=== PATIENT | male | born 1955 | race Caucasian/White ===

== ENCOUNTER → 2017-01-12 | Outpatient (REF) | payer MEDICAID ==
[~2017-01-12] MED LIST: /ESOM40CA; /ESOM40CA OR; ACET500C OR; ALBU83IN INH; ALBUTEROL NEB INH; ARTISOL10 OD; ASPI325T PO; ATROVENT INH; BACL-67 PO; BUSP15TA47 PO; BUSPAR PO; DOC-8.6T PO; FURO20TA2 PO; FURO40TA2 PO; GUAI200T PO; IBUP200C PO; IBUP400T; LEVA500T PO; MOM30SS PO; NASA0.057; OMEG12002 PO; PRED10TA PO; PRED20TAB PO; PREDNISONE TAPER; PROA1AER INH; PROT1TAB2 PO; PROV90AE; PROV90AE IN; ROBITUSSIN PO; SALINE NASAL SPRAY; SENN8.6T76 PO; SENO8.6T10 PO; SPIR1CAP INH; SYMB16INH INH; SYMB80AE; SYMB80AE IN; SYMBICORT INH; SYSTSOL14 OU; TIOT18INH INH; TRAM50TA2 PO; TYL325; TYLE325T5 PO; VENTOLIN NEB INH
== END ==
LOC: M LAB REF 09:26
PROVIDERS: ATTEND Internal Medicine Pulmonary Disease
DX: J44.9 Chronic obstructive pulmonary disease, unspecified (principal)

== ENCOUNTER → 2017-03-13 | Outpatient (CLI) | payer MEDICAID | LOC: M PT 12:15 | PROVIDERS: ATTEND Physician Assistant Medical | DX: J44.9 Chronic obstructive pulmonary disease, unspecified (principal) ==

== ENCOUNTER → 2017-04-04 | Outpatient (REF) | payer MEDICAID ==
[2017-04-04 11:00] LABS: BASO % 0.7 % (0.0-1.0); EOS # 0.4 K/mm3 (0.0-0.50); LARGE UNSTAINED CELL # 0.2 K/mm3 (0.0-0.4); LARGE UNSTAINED CELL % 2.5 % (0.0-4.0); LYMPH # 1.7 K/mm3 (1.5-4.5); LYMPH % 23.4 % (24.0-44.0); MEAN CORPUSCULAR HEMOGLOBIN 33.4 pg (27.0-33.0); MEAN CORPUSCULAR HGB CONC 33.7 g/dl (32.0-36.5); MEAN CORPUSCULAR VOLUME 99.1 fl (80.0-96.0); MONO # 0.6 K/mm3 (0.0-0.8); NEUTROPHILS # 3.9 K/mm3 (1.8-7.7); NEUTROPHILS % 58.4 % (36.0-66.0); PLATELET COUNT, AUTOMATED 163 k/mm3 (150-450); WHITE BLOOD COUNT 6.7 K/mm3 (4.0-10.0)
[2017-04-04 11:24] LABS: ALBUMIN 3.3 GM/DL (3.2-5.2); ALBUMIN/GLOBULIN RATIO 1.14 (1.00-1.93); ALKALINE PHOSPHATASE 55 U/L (45-117); ALT/SGPT 23 U/L (12-78); ANION GAP 5 MEQ/L (8-16); AST/SGOT 15 U/L (15-37); BILIRUBIN,TOTAL 0.5 MG/DL (0.2-1.0); BLOOD UREA NITROGEN 33 MG/DL (7-18); CALCIUM LEVEL 8.7 MG/DL (8.8-10.2); CARBON DIOXIDE LEVEL 33 MEQ/L (21-32); CHLORIDE LEVEL 105 MEQ/L (98-107); CREATININE FOR GFR 1.19 MG/DL (0.70-1.30); GLOMERULAR FILTRATION RATE > 60.0 (>49); GLUCOSE, FASTING 83 MG/DL (80-110); POTASSIUM SERUM 4.6 MEQ/L (3.5-5.1); SODIUM LEVEL 143 MEQ/L (136-145); TOTAL PROTEIN 6.2 GM/DL (6.4-8.2)
== END ==
PROVIDERS: ATTEND Physician Assistant Medical
DX: J44.9 Chronic obstructive pulmonary disease, unspecified (principal); K21.9 Gastro-esophageal reflux disease without esophagitis; M47.816 Spondylosis without myelopathy or radiculopathy, lumbar region

== ENCOUNTER → 2017-05-15 | Outpatient (REF) | payer MEDICAID ==
[~2017-05-15] MED LIST changes: -BACL-67 PO; +BACL1TAB9 PO; -DOC-8.6T PO; +DOC-8.6T3 PO; -GUAI200T PO; +GUAI200T6 PO; -IBUP200C PO; +IBUP200C10 PO; +LEVA1TAB2 PO; -LEVA500T PO; +NASA0.0517; -NASA0.057; -PROA1AER INH; +PROAAER10 INH
[2017-05-15 16:17] LABS: BASO % 0.6 % (0.0-1.0); EOS # 0.5 K/mm3 (0.0-0.50); EOS % 6.7 % (0.0-3.0); LARGE UNSTAINED CELL # 0.2 K/mm3 (0.0-0.4); LARGE UNSTAINED CELL % 2.2 % (0.0-4.0); LYMPH # 2.3 K/mm3 (1.5-4.5); LYMPH % 26.6 % (24.0-44.0); MONO # 0.6 K/mm3 (0.0-0.8); MONO % 7.7 % (0.0-5.0); NEUTROPHILS # 4.6 K/mm3 (1.8-7.7); NEUTROPHILS % 56.2 % (36.0-66.0); PLATELET COUNT, AUTOMATED 169 k/mm3 (150-450); RED CELL DISTRIBUTION WIDTH 12.1 % (11.5-14.5); WHITE BLOOD COUNT 8.1 K/mm3 (4.0-10.0)
[2017-05-15 17:40] LABS: ALBUMIN 3.9 GM/DL (3.2-5.2); ALBUMIN/GLOBULIN RATIO 1.11 (1.00-1.93); ALKALINE PHOSPHATASE 72 U/L (45-117); ALT/SGPT 29 U/L (12-78); ANION GAP 4 MEQ/L (8-16); AST/SGOT 17 U/L (15-37); BILIRUBIN,TOTAL 0.4 MG/DL (0.2-1.0); BLOOD UREA NITROGEN 28 MG/DL (7-18); CALCIUM LEVEL 9.1 MG/DL (8.8-10.2); CARBON DIOXIDE LEVEL 32 MEQ/L (21-32); CHLORIDE LEVEL 102 MEQ/L (98-107); CREATININE FOR GFR 1.26 MG/DL (0.70-1.30); GLOMERULAR FILTRATION RATE > 60.0 (>49); GLUCOSE, FASTING 94 MG/DL (80-110); POTASSIUM SERUM 4.7 MEQ/L (3.5-5.1); SODIUM LEVEL 138 MEQ/L (136-145); TOTAL PROTEIN 7.4 GM/DL (6.4-8.2)
== END ==
LOC: M SFHCPLAZ 14:09
PROVIDERS: ATTEND Physician Assistant Medical
DX: J44.9 Chronic obstructive pulmonary disease, unspecified (principal); K21.9 Gastro-esophageal reflux disease without esophagitis; M47.816 Spondylosis without myelopathy or radiculopathy, lumbar region

== ENCOUNTER → 2017-05-29 | Outpatient (CLI) | payer MEDICAID ==
--- NOTE | 2017-05-29 15:32 | REP ---
PA and lateral chest: Comparison is 10/24/2016. The lung ford are hyperinflated and there are giant bulla bilaterally and these findings are more pronounced on the left than the right and unchanged. There is calcific pleural plaque in the right apex, unchanged. There are old healed right rib fractures, unchanged. There are no acute infiltrates. Cardiac size is normal. The jesse, mediastinum, and bony thorax are unremarkable. Impression: Advanced bullous emphysema. No acute infiltrate or other acute cardiopulmonary findings. Signed by Darrion Guerra MD 05/29/2017 03:24 P
== END ==
LOC: M SMT 14:51
PROVIDERS: ATTEND Physician Assistant Medical
DX: J44.9 Chronic obstructive pulmonary disease, unspecified (principal)

== ENCOUNTER → 2017-07-19 | Outpatient (CLI) | payer MEDICAID ==
--- NOTE | 2017-07-19 15:00 | REP ---
Clinical: COPD. Technique: PA and lateral. Comparison: 05/29/2017. Findings: Marked COPD and emphysematous changes with large bilateral bullae remain stable. Mediastinum and cardiac silhouette within normal limits. Pleural calcification at the right apex. No new acute pleuroparenchymal process is appreciated. Skeletal structures demonstrate degenerative changes and mild compression deformities which remain stable. Impression: 1. Stable advanced COPD and emphysematous changes. 2. No obvious acute cardiopulmonary process. 3. Osteopenia and degenerative changes along with multiple stable compression deformities. Signed by Rey Ngo MD 07/19/2017 02:51 P
== END ==
LOC: M LAB 14:34
PROVIDERS: ATTEND Internal Medicine Pulmonary Disease
DX: R05 Cough (principal); J44.9 Chronic obstructive pulmonary disease, unspecified; M85.80 Other specified disorders of bone density and structure, unspecified site

== ENCOUNTER → 2017-09-26 | Outpatient (REF) | payer MEDICAID ==
[2017-09-26 10:41] LABS: BASO # 0.1 10^3/uL (0.0-0.2); BASO % 0.7 % (0.0-1.0); EOS # 0.4 10^3/uL (0.0-0.50); EOS % 5.7 % (0.0-3.0); IMMATURE GRANULOCYTE % 0.3 % (0-0); LYMPH # 1.8 10^3/uL (1.5-4.5); LYMPH % 24.3 % (24.0-44.0); MEAN CORPUSCULAR HEMOGLOBIN 32.5 pg (27.0-33.0); MEAN CORPUSCULAR HGB CONC 33.4 g/dl (32.0-36.5); MEAN CORPUSCULAR VOLUME 97.3 fl (80.0-96.0); MONO # 0.8 10^3/uL (0.0-0.8); MONO % 10.4 % (0.0-5.0); NEUTROPHILS # 4.4 10^3/uL (1.8-7.7); NEUTROPHILS % 58.6 % (36.0-66.0); PLATELET COUNT, AUTOMATED 181 10^3/uL (150-450); RED CELL DISTRIBUTION WIDTH 12.3 % (11.5-14.5); WHITE BLOOD COUNT 7.5 10^3/uL (4.0-10.0)
== END ==
PROVIDERS: ATTEND Physician Assistant Medical
DX: K21.9 Gastro-esophageal reflux disease without esophagitis (principal)

== ENCOUNTER → 2017-10-03 | Outpatient (REF) | payer MEDICAID ==
[2017-10-03 13:08] LABS: ALBUMIN 3.4 GM/DL (3.2-5.2); ALKALINE PHOSPHATASE 88 U/L (45-117); ALT/SGPT 42 U/L (12-78); ANION GAP 6 MEQ/L (8-16); AST/SGOT 21 U/L (7-37); BILIRUBIN,TOTAL 0.4 MG/DL (0.2-1.0); BLOOD UREA NITROGEN 19 MG/DL (7-18); CALCIUM LEVEL 8.8 MG/DL (8.8-10.2); CARBON DIOXIDE LEVEL 33 MEQ/L (21-32); CHLORIDE LEVEL 102 MEQ/L (98-107); CREATININE FOR GFR 1.07 MG/DL (0.70-1.30); GLOMERULAR FILTRATION RATE > 60.0 (>49); GLUCOSE, FASTING 85 MG/DL (80-110); POTASSIUM SERUM 4.1 MEQ/L (3.5-5.1); SODIUM LEVEL 141 MEQ/L (136-145); TOTAL PROTEIN 6.8 GM/DL (6.4-8.2)
== END ==
PROVIDERS: ATTEND Physician Assistant Medical
DX: M47.816 Spondylosis without myelopathy or radiculopathy, lumbar region (principal)

== ENCOUNTER → 2017-11-08 | Outpatient (CLI) | payer MEDICAID | LOC: M SMT 11:12 | DX: J01.10 Acute frontal sinusitis, unspecified (principal); J44.9 Chronic obstructive pulmonary disease, unspecified; R91.8 Other nonspecific abnormal finding of lung field ==

== ENCOUNTER → 2017-11-30 | Outpatient (REF) | payer MEDICAID ==
[2017-11-30 18:49] LABS: ALBUMIN 3.8 GM/DL (3.2-5.2); ALBUMIN/GLOBULIN RATIO 1.12 (1.00-1.93); ALKALINE PHOSPHATASE 105 U/L (45-117); ALT/SGPT 45 U/L (12-78); ANION GAP 4 MEQ/L (8-16); AST/SGOT 25 U/L (7-37); BILIRUBIN,TOTAL 0.3 MG/DL (0.2-1.0); BLOOD UREA NITROGEN 14 MG/DL (7-18); CALCIUM LEVEL 8.4 MG/DL (8.8-10.2); CARBON DIOXIDE LEVEL 31 MEQ/L (21-32); CHLORIDE LEVEL 107 MEQ/L (98-107); CREATININE FOR GFR 1.15 MG/DL (0.70-1.30); GLOMERULAR FILTRATION RATE > 60.0 (>49); GLUCOSE, FASTING 79 MG/DL (70-100); POTASSIUM SERUM 3.9 MEQ/L (3.5-5.1); SODIUM LEVEL 142 MEQ/L (136-145); TOTAL PROTEIN 7.2 GM/DL (6.4-8.2)
[2017-11-30 20:22] LABS: BASO # 0.1 10^3/uL (0.0-0.2); BASO % 0.7 % (0.0-1.0); EOS # 0.6 10^3/uL (0.0-0.50); EOS % 7.9 % (0.0-3.0); HEMATOCRIT 41.2 % (42.0-52.0); HEMOGLOBIN 13.6 g/dl (14.0-18.0); IMMATURE GRANULOCYTE % 0.3 % (0-0); LYMPH # 1.8 10^3/uL (1.5-4.5); LYMPH % 26.2 % (24.0-44.0); MEAN CORPUSCULAR HEMOGLOBIN 32.9 pg (27.0-33.0); MEAN CORPUSCULAR VOLUME 99.8 fl (80.0-96.0); MONO # 0.8 10^3/uL (0.0-0.8); MONO % 10.9 % (0.0-5.0); NEUTROPHILS # 3.8 10^3/uL (1.8-7.7); PLATELET COUNT, AUTOMATED 179 10^3/uL (150-450); RED BLOOD COUNT 4.13 10^6/uL (4.30-6.10)
== END ==
LOC: M SFHCPLAZ 14:12
DX: J06.0 Acute laryngopharyngitis (principal)

== ENCOUNTER → 2018-01-02 | Outpatient (REF) | payer MEDICAID | LOC: M LAB REF 15:34 | DX: L82.1 Other seborrheic keratosis (principal) ==

== ENCOUNTER → 2018-01-22 | Outpatient (CLI) | payer MEDICAID | LOC: M SMT 14:33 | DX: R91.8 Other nonspecific abnormal finding of lung field (principal) | CPT/HCPCS: 71046 ==

== ENCOUNTER → 2018-01-23 | Outpatient (REF) | payer MEDICAID | DX: R05 Cough (principal) | CPT/HCPCS: 87205 ==

== ENCOUNTER → 2018-01-26 | Outpatient (REF) | payer MEDICAID ==
[2018-01-26 12:39] LABS: BASO # 0.1 10^3/uL (0.0-0.2); BASO % 0.8 % (0.0-1.0); EOS # 0.4 10^3/uL (0.0-0.50); EOS % 5.8 % (0.0-3.0); HEMATOCRIT 42.1 % (42.0-52.0); HEMOGLOBIN 13.9 g/dl (14.0-18.0); IMMATURE GRANULOCYTE % 0.1 % (0-3.0); LYMPH # 1.7 10^3/uL (1.5-4.5); LYMPH % 23.3 % (24.0-44.0); MEAN CORPUSCULAR HEMOGLOBIN 31.8 pg (27.0-33.0); MEAN CORPUSCULAR VOLUME 96.3 fl (80.0-96.0); MONO # 0.7 10^3/uL (0.0-0.8); MONO % 9.7 % (0.0-5.0); NEUTROPHILS # 4.4 10^3/uL (1.8-7.7); NEUTROPHILS % 60.3 % (36.0-66.0); PLATELET COUNT, AUTOMATED 166 10^3/uL (150-450); RED BLOOD COUNT 4.37 10^6/uL (4.30-6.10); RED CELL DISTRIBUTION WIDTH 12.3 % (11.5-14.5); WHITE BLOOD COUNT 7.3 10^3/uL (4.0-10.0)
[2018-01-26 13:52] LABS: ALBUMIN 3.7 GM/DL (3.2-5.2); ALBUMIN/GLOBULIN RATIO 1.06 (1.00-1.93); ALKALINE PHOSPHATASE 108 U/L (45-117); ALT/SGPT 38 U/L (12-78); ANION GAP 5 MEQ/L (8-16); AST/SGOT 22 U/L (7-37); BILIRUBIN,TOTAL 0.4 MG/DL (0.2-1.0); BLOOD UREA NITROGEN 15 MG/DL (7-18); C REACTIVE PROTEIN QUANTITATIV < 0.30 MG/DL (0.00-0.30); CALCIUM LEVEL 8.6 MG/DL (8.8-10.2); CARBON DIOXIDE LEVEL 29 MEQ/L (21-32); CHLORIDE LEVEL 105 MEQ/L (98-107); CHOLESTEROL LEVEL 176 MG/DL (<200); CHOLESTEROL RISK RATIO 3.666 (<5); FREE T4 1.11 NG/DL (0.76-1.46); GLOMERULAR FILTRATION RATE > 60.0 (>49); GLUCOSE, FASTING 96 MG/DL (70-100); HDL CHOLESTEROL 48 MG/DL (>40); LDL CHOLESTEROL 114.4 MG/DL (<100); NON-HDL-C 128 MG/DL; POTASSIUM SERUM 4.1 MEQ/L (3.5-5.1); SODIUM LEVEL 139 MEQ/L (136-145); TOTAL PROTEIN 7.2 GM/DL (6.4-8.2); TRIGLYCERIDES LEVEL 68 MG/DL (<150)
== END ==
LOC: M SFHCPLAZ 11:29
DX: M47.816 Spondylosis without myelopathy or radiculopathy, lumbar region (principal); K21.9 Gastro-esophageal reflux disease without esophagitis; Z13.220 Encounter for screening for lipoid disorders

== ENCOUNTER → 2018-03-01 | Outpatient (CLI) | payer MEDICAID | LOC: M SMT 11:31 | DX: J44.9 Chronic obstructive pulmonary disease, unspecified (principal); M25.512 Pain in left shoulder | CPT/HCPCS: 71046 ==

== ENCOUNTER → 2018-04-09 | Outpatient (CLI) | payer MEDICAID | LOC: M SMT 12:54 | DX: M85.851 Other specified disorders of bone density and structure, right thigh (principal); M16.11 Unilateral primary osteoarthritis, right hip | CPT/HCPCS: 73502 ==

== ENCOUNTER → 2018-04-13 | Outpatient (REF) | payer MEDICAID ==
[2018-04-13 11:02] LABS: BASO # 0.1 10^3/uL (0.0-0.2); BASO % 0.7 % (0.0-1.0); EOS # 0.5 10^3/uL (0.0-0.50); EOS % 6.8 % (0.0-3.0); HEMATOCRIT 41.1 % (42.0-52.0); HEMOGLOBIN 13.5 g/dl (13.5-17.5); IMMATURE GRANULOCYTE % 0.3 % (0-3.0); LYMPH # 1.7 10^3/uL (1.5-4.5); LYMPH % 21.9 % (24.0-44.0); MEAN CORPUSCULAR HEMOGLOBIN 32.5 pg (27.0-33.0); MEAN CORPUSCULAR HGB CONC 32.8 g/dl (32.0-36.5); MONO # 0.8 10^3/uL (0.0-0.8); MONO % 10.5 % (0.0-5.0); NEUTROPHILS # 4.6 10^3/uL (1.8-7.7); NEUTROPHILS % 59.8 % (36.0-66.0); PLATELET COUNT, AUTOMATED 174 10^3/uL (150-450); RED BLOOD COUNT 4.15 10^6/uL (4.30-6.10); RED CELL DISTRIBUTION WIDTH 13.4 % (11.5-14.5); WHITE BLOOD COUNT 7.6 10^3/uL (4.0-10.0)
[2018-04-13 11:45] LABS: ALBUMIN 3.7 GM/DL (3.2-5.2); ALBUMIN/GLOBULIN RATIO 1.09 (1.00-1.93); ALKALINE PHOSPHATASE 99 U/L (45-117); ALT/SGPT 31 U/L (12-78); ANION GAP 7 MEQ/L (8-16); AST/SGOT 15 U/L (7-37); BILIRUBIN,TOTAL 0.4 MG/DL (0.2-1.0); BLOOD UREA NITROGEN 17 MG/DL (7-18); CALCIUM LEVEL 8.8 MG/DL (8.8-10.2); CARBON DIOXIDE LEVEL 29 MEQ/L (21-32); CHLORIDE LEVEL 106 MEQ/L (98-107); CREATININE FOR GFR 0.98 MG/DL (0.70-1.30); GLOMERULAR FILTRATION RATE > 60.0 (>49); GLUCOSE, FASTING 111 MG/DL (70-100); POTASSIUM SERUM 4.1 MEQ/L (3.5-5.1); SODIUM LEVEL 142 MEQ/L (136-145); TOTAL PROTEIN 7.1 GM/DL (6.4-8.2)
[2018-04-16 14:12] LABS: TOPIRAMATE LEVEL None Detected ug/mL (2.0-25.0)
== END ==
DX: R51 Headache (principal)
CPT/HCPCS: 80053

== ENCOUNTER → 2018-08-15 | Outpatient (REF) | payer MEDICAID ==
[2018-08-15 09:07] LABS: BASO # 0.1 10^3/uL (0.0-0.2); BASO % 0.9 % (0.0-1.0); EOS # 0.4 10^3/uL (0.0-0.50); EOS % 5.3 % (0.0-3.0); HEMATOCRIT 42.8 % (42.0-52.0); HEMOGLOBIN 14.5 g/dl (13.5-17.5); IMMATURE GRANULOCYTE % 0.3 % (0-3.0); LYMPH # 2.3 10^3/uL (1.5-4.5); LYMPH % 30.4 % (24.0-44.0); MEAN CORPUSCULAR HEMOGLOBIN 33.5 pg (27.0-33.0); MEAN CORPUSCULAR HGB CONC 33.9 g/dl (32.0-36.5); MEAN CORPUSCULAR VOLUME 98.8 fl (80.0-96.0); MONO # 0.7 10^3/uL (0.0-0.8); NEUTROPHILS # 3.9 10^3/uL (1.8-7.7); NEUTROPHILS % 53.1 % (36.0-66.0); PLATELET COUNT, AUTOMATED 201 10^3/uL (150-450); RED BLOOD COUNT 4.33 10^6/uL (4.30-6.10); RED CELL DISTRIBUTION WIDTH 12.7 % (11.5-14.5); WHITE BLOOD COUNT 7.4 10^3/uL (4.0-10.0)
[2018-08-15 09:26] LABS: ESTIMATED AVERAGE GLUCOSE 123 MG/DL (60-110); HEMOGLOBIN A1c 5.9 %
[2018-08-15 09:35] LABS: CHOLESTEROL LEVEL 177 MG/DL (<200); CHOLESTEROL RISK RATIO 3.403 (<5); HDL CHOLESTEROL 52 MG/DL (>40); LDL CHOLESTEROL 105 MG/DL (<100); NON-HDL-C 125 MG/DL; TRIGLYCERIDES LEVEL 100 MG/DL (<150)
[2018-08-15 10:00] LABS: ERYTHROCYTE SEDIMENTATION RATE 20 mm/hr (0-20)
== END ==
DX: G45.3 Amaurosis fugax (principal)
CPT/HCPCS: 83036

== ENCOUNTER → 2018-08-20 | Outpatient (CLI) | payer MEDICAID | LOC: M RAD 10:55 | DX: H53.9 Unspecified visual disturbance (principal) | CPT/HCPCS: 93880 ==

== ENCOUNTER → 2018-08-28 | Outpatient (REF) | payer MEDICAID ==
[2018-08-28 09:34] LABS: BASO # 0.1 10^3/uL (0.0-0.2); BASO % 0.9 % (0.0-1.0); EOS # 0.4 10^3/uL (0.0-0.50); HEMATOCRIT 42.1 % (42.0-52.0); HEMOGLOBIN 14.1 g/dl (13.5-17.5); IMMATURE GRANULOCYTE % 0.5 % (0-3.0); LYMPH # 1.9 10^3/uL (1.5-4.5); LYMPH % 29.6 % (24.0-44.0); MEAN CORPUSCULAR HEMOGLOBIN 33.3 pg (27.0-33.0); MEAN CORPUSCULAR HGB CONC 33.5 g/dl (32.0-36.5); MEAN CORPUSCULAR VOLUME 99.5 fl (80.0-96.0); MONO # 0.7 10^3/uL (0.0-0.8); MONO % 10.7 % (0.0-5.0); NEUTROPHILS # 3.4 10^3/uL (1.8-7.7); NEUTROPHILS % 52.3 % (36.0-66.0); PLATELET COUNT, AUTOMATED 180 10^3/uL (150-450); RED BLOOD COUNT 4.23 10^6/uL (4.30-6.10); RED CELL DISTRIBUTION WIDTH 12.9 % (11.5-14.5); WHITE BLOOD COUNT 6.5 10^3/uL (4.0-10.0)
[2018-08-28 09:57] LABS: ESTIMATED AVERAGE GLUCOSE 128 MG/DL (60-110); HEMOGLOBIN A1c 6.1 %
[2018-08-28 10:02] LABS: ALBUMIN 3.7 GM/DL (3.2-5.2); ALBUMIN/GLOBULIN RATIO 1.06 (1.00-1.93); ALKALINE PHOSPHATASE 93 U/L (45-117); ALT/SGPT 31 U/L (12-78); ANION GAP 6 MEQ/L (8-16); AST/SGOT 18 U/L (7-37); BILIRUBIN,TOTAL 0.3 MG/DL (0.2-1.0); BLOOD UREA NITROGEN 17 MG/DL (7-18); CALCIUM LEVEL 8.6 MG/DL (8.8-10.2); CARBON DIOXIDE LEVEL 25 MEQ/L (21-32); CHLORIDE LEVEL 109 MEQ/L (98-107); CHOLESTEROL LEVEL 168 MG/DL (<200); CREATININE FOR GFR 1.07 MG/DL (0.70-1.30); FREE T4 1.05 NG/DL (0.76-1.46); GLOMERULAR FILTRATION RATE > 60.0 (>49); GLUCOSE, FASTING 100 MG/DL (70-100); HDL CHOLESTEROL 48 MG/DL (>40); LDL CHOLESTEROL 105 MG/DL (<100); NON-HDL-C 120 MG/DL; POTASSIUM SERUM 4.2 MEQ/L (3.5-5.1); SODIUM LEVEL 140 MEQ/L (136-145); TOTAL PROTEIN 7.2 GM/DL (6.4-8.2); TRIGLYCERIDES LEVEL 76 MG/DL (<150)
[2018-08-28 10:06] LABS: TOTAL 25(OH) VITAMIN D 20.8 NG/ML (30.0-100.0)
[2018-08-28 12:38] LABS: GOLD SPEC TUBE RECIEVED
== END ==
DX: K21.9 Gastro-esophageal reflux disease without esophagitis (principal); M85.80 Other specified disorders of bone density and structure, unspecified site; Z79.899 Other long term (current) drug therapy
CPT/HCPCS: 84443

== ENCOUNTER → 2018-10-17 | Outpatient (REF) | payer MEDICAID ==
[~2018-10-17] MED LIST changes: -IBUP200C10 PO; +IBUP200C25 PO
[2018-10-17 11:44] LABS: FREE T4 1.22 NG/DL (0.76-1.46); THYROID STIMULATING HORMONE 2.32 uIU/ML (0.358-3.740)
== END ==
PROVIDERS: ATTEND Physician Assistant Medical
DX: E03.9 Hypothyroidism, unspecified (principal)

== ENCOUNTER → 2018-12-13 | Outpatient (CLI) | payer MEDICAID ==
--- NOTE | 2018-12-13 10:08 | REP ---
Chest two views HISTORY: COPD Comparison: None The left lung is hyperinflated. An increase in interstitial markings is present in the lungs consistent with chronic interstitial change. Bullae are present. Patchy density is present in the right lower lobe consistent with atelectasis or infiltrate. Calcified pleural plaque is present in the right lung apex. The heart is normal in size. The pulmonary vasculature is normal in appearance. There are old right rib fractures. There are old compression fractures of several mid and lower thoracic vertebral bodies. IMPRESSION: 1. COPD. 2. Right lower lobe atelectasis or infiltrate. Electronically Signed by Rao Riggins MD 12/13/2018 10:00 A
[2018-12-13 14:05] LABS: BASO # 0.1 10^3/uL (0.0-0.2); BASO % 0.8 % (0.0-1.0); EOS # 0.3 10^3/uL (0.0-0.50); EOS % 4.4 % (0.0-3.0); HEMATOCRIT 43.8 % (42.0-52.0); HEMOGLOBIN 14.6 g/dl (13.5-17.5); LYMPH # 1.7 10^3/uL (1.5-4.5); LYMPH % 22.1 % (24.0-44.0); MEAN CORPUSCULAR HEMOGLOBIN 33.1 pg (27.0-33.0); MEAN CORPUSCULAR HGB CONC 33.3 g/dl (32.0-36.5); MEAN CORPUSCULAR VOLUME 99.3 fl (80.0-96.0); MONO # 0.7 10^3/uL (0.0-0.8); MONO % 9.5 % (0.0-5.0); NEUTROPHILS # 4.8 10^3/uL (1.8-7.7); NEUTROPHILS % 63.1 % (36.0-66.0); PLATELET COUNT, AUTOMATED 200 10^3/uL (150-450); RED BLOOD COUNT 4.41 10^6/uL (4.30-6.10); WHITE BLOOD COUNT 7.6 10^3/uL (4.0-10.0)
[2018-12-13 14:29] LABS: HEMOGLOBIN A1c 6.6 %
[2018-12-13 14:32] LABS: ALBUMIN 3.9 GM/DL (3.2-5.2); ALT/SGPT 37 U/L (12-78); BILIRUBIN,TOTAL 0.3 MG/DL (0.2-1.0); BLOOD UREA NITROGEN 17 MG/DL (7-18); CALCIUM LEVEL 8.9 MG/DL (8.8-10.2); CARBON DIOXIDE LEVEL 27 MEQ/L (21-32); CHLORIDE LEVEL 106 MEQ/L (98-107); CREATININE FOR GFR 1.07 MG/DL (0.70-1.30); FREE T4 1.21 NG/DL (0.76-1.46); GLOMERULAR FILTRATION RATE > 60.0 (>49); GLUCOSE, FASTING 125 MG/DL (70-100); POTASSIUM SERUM 4.5 MEQ/L (3.5-5.1); PTH INTACT 43.2 PG/ML (18.5-88.0); SODIUM LEVEL 140 MEQ/L (136-145); TOTAL PROTEIN 7.1 GM/DL (6.4-8.2)
== END ==
LOC: M SMT 09:35
PROVIDERS: ATTEND Physician Assistant Medical
DX: J44.9 Chronic obstructive pulmonary disease, unspecified (principal); K21.9 Gastro-esophageal reflux disease without esophagitis; E55.9 Vitamin D deficiency, unspecified; E66.09 Other obesity due to excess calories

== ENCOUNTER → 2018-12-19 | Outpatient (REF) | payer MEDICAID | LOC: M SMT 07:37 | PROVIDERS: ATTEND Internal Medicine Pulmonary Disease | DX: R05 Cough (principal) ==

== ENCOUNTER → 2019-01-16 | Outpatient (CLI) | payer MEDICAID ==
--- NOTE | 2019-01-16 11:17 | REP ---
Chest two views HISTORY: Pneumonia Comparison: 12/13/2018 An increase in interstitial markings is present in the lungs consistent with chronic interstitial change. Bullae are present. Patchy density is present in the the right lower lobe consistent with an infiltrate that is slightly decreased compared to the previous study. The heart is normal in size. The pulmonary vasculature is normal in appearance. There are old right rib fractures. There are old compression fractures of several mid and lower thoracic vertebral bodies. Impression: 1. COPD. 2. Right lower lobe infiltrate decreased compared to the previous study. Electronically Signed by Rao Riggins MD 01/16/2019 11:08 A
== END ==
LOC: M SMT 10:06
PROVIDERS: ATTEND Internal Medicine Pulmonary Disease
DX: J18.9 Pneumonia, unspecified organism (principal)

== ENCOUNTER → 2019-02-27 | Outpatient (CLI) | payer MEDICAID ==
[~2019-02-27] MED LIST changes: -/ESOM40CA; -/ESOM40CA OR; +ASPI-1 PO; -ASPI325T PO; +NEXI1CAP3; +NEXI1CAP3 OR; +PRED-351 PO; -PRED10TA PO
--- NOTE | 2019-02-27 19:16 | REP ---
RIGHT LOWER EXTREMITY DUPLEX VEINS: HISTORY: Edema. There are no filling defects in the deep venous system. The deep venous system is patent. IMPRESSION:There is no deep venous thrombosis. Electronically Signed by Rao Riggins MD 02/27/2019 07:24 P
== END ==
LOC: M RAD 16:32
PROVIDERS: ATTEND Physician Assistant Medical
DX: R60.0 Localized edema (principal)

== ENCOUNTER → 2019-02-27 | Outpatient (REF) | payer MEDICAID ==
[2019-02-27 16:32] LABS: BASO % 0.6 % (0.0-1.0); EOS # 0.3 10^3/uL (0.0-0.50); EOS % 4.9 % (0.0-3.0); HEMATOCRIT 41.9 % (42.0-52.0); LYMPH # 1.6 10^3/uL (1.5-4.5); LYMPH % 24.7 % (24.0-44.0); MEAN CORPUSCULAR HEMOGLOBIN 33.6 pg (27.0-33.0); MEAN CORPUSCULAR HGB CONC 33.4 g/dl (32.0-36.5); MEAN CORPUSCULAR VOLUME 100.5 fl (80.0-96.0); MONO # 0.7 10^3/uL (0.0-0.8); MONO % 10.6 % (0.0-5.0); NEUTROPHILS # 3.8 10^3/uL (1.8-7.7); PLATELET COUNT, AUTOMATED 165 10^3/uL (150-450); RED BLOOD COUNT 4.17 10^6/uL (4.30-6.10); WHITE BLOOD COUNT 6.4 10^3/uL (4.0-10.0)
[2019-02-27 16:45] LABS: ALBUMIN 3.9 GM/DL (3.2-5.2); ALT/SGPT 31 U/L (12-78); BILIRUBIN,TOTAL 0.4 MG/DL (0.2-1.0); BLOOD UREA NITROGEN 19 MG/DL (7-18); CALCIUM LEVEL 8.5 MG/DL (8.8-10.2); CARBON DIOXIDE LEVEL 25 MEQ/L (21-32); CHLORIDE LEVEL 109 MEQ/L (98-107); CHOLESTEROL LEVEL 168 MG/DL (<200); CHOLESTEROL RISK RATIO 3.818 (<5); CREATININE FOR GFR 0.92 MG/DL (0.70-1.30); FREE T4 1.25 NG/DL (0.76-1.46); GLOMERULAR FILTRATION RATE > 60.0 (>49); GLUCOSE, FASTING 104 MG/DL (70-100); HDL CHOLESTEROL 44 MG/DL (>40); LDL CHOLESTEROL 100 MG/DL (<100); NON-HDL-C 124 MG/DL; POTASSIUM SERUM 4.1 MEQ/L (3.5-5.1); SODIUM LEVEL 139 MEQ/L (136-145); TOTAL PROTEIN 6.9 GM/DL (6.4-8.2); TRIGLYCERIDES LEVEL 122 MG/DL (<150)
[2019-02-27 16:46] LABS: PTH INTACT 53.6 PG/ML (18.5-88.0)
== END ==
LOC: M SFHCPLAZ 14:14
PROVIDERS: ATTEND Physician Assistant Medical
DX: Z12.11 Encounter for screening for malignant neoplasm of colon (principal); Z12.5 Encounter for screening for malignant neoplasm of prostate; E03.9 Hypothyroidism, unspecified; K21.9 Gastro-esophageal reflux disease without esophagitis; E55.9 Vitamin D deficiency, unspecified; Z13.220 Encounter for screening for lipoid disorders

== ENCOUNTER → 2019-03-05 | Outpatient (CLI) | payer MEDICAID ==
--- NOTE | 2019-03-05 14:42 | REP ---
Chest two views HISTORY: Pneumonia Comparison: 01/16/2019 An increase in interstitial markings is present in the lungs consistent with chronic interstitial change. Bullae are present. Patchy density is present in the right lower lobe consistent with an infiltrate that is slightly decreased compared to the previous study. The heart is normal in size. The pulmonary vasculature is normal in appearance. There are old compression fractures of several mid and lower thoracic vertebral bodies. IMPRESSION: 1. COPD. 2. Right lower lobe infiltrate decreased compared to the previous study. Electronically Signed by Rao Riggins MD 03/05/2019 02:33 P
== END ==
LOC: M SMT 13:52
PROVIDERS: ATTEND Internal Medicine Pulmonary Disease
DX: J18.9 Pneumonia, unspecified organism (principal); J44.0 Chronic obstructive pulmonary disease with (acute) lower respiratory infection

== ENCOUNTER 2019-03-21 21:02 | Emergency (ER) | payer MEDICAID ==
[~2019-03-21] VITALS: Ht 182.9 cm; Wt 76.4 kg
[2019-03-21 22:30] VITALS: BP 106/78
[2019-03-21] MEDS ORDERED: QC A650T3 PO (22:40)
[2019-03-21] MEDS ORDERED: AMIT75TA PO (22:44)
[2019-03-21] MEDS ORDERED: SM N0.65 NARES (22:44)
--- NOTE | 2019-03-22 09:37 | REP ---
CT chest without contrast: Repeat dictation. History: Persistent infiltrate right lower lobe on chest x-ray. Comparison is made with a recent chest x-ray from March 05, 2019 as well as chest CTs. The most recent prior chest CT study is from July 06, 2016. The most remote is from August of 2014. Preliminary report is provided at the time of examination by [facility]. CT findings: There are severe emphysematous changes with numerous large bullae. These bullae occupying the majority of the volume of the left hemithorax and approximately half the volume of the right hemithorax similar to multiple prior studies. There is calcific pleural plaquing and calcific pleuroparenchymal fibrosis in the right apex and right posterior chest wall. This is unchanged. There is some coarse linear fibrosis in the right base in the lower lobe. I do not see a definite inflammatory infiltrate in the right base. There is an area of consolidation atelectasis and bronchiectasis in the left upper lobe anteriorly which appears to be new from July 06, 2016 prior study. This may be a focus of pneumonia. There are some increased interstitial markings in the lingula at the left base which were not present in 2016 as well. This could be inflammatory changes. At the left apex there is a spiculated opacity which appears to be fibrotic. It is a change from July 06, 2016 prior study. No pleural or pericardial effusion is seen. No hilar or mediastinal mass is observed. Vascular calcification including coronary artery calcification is seen. Impression: Severe COPD with multiple large volume bullae. There is an area of parenchymal opacification, bronchiectasis and consolidation in the left upper lobe anteriorly which may be pneumonia. There is a new area of fibrotic density in the left apex. Short interval followup suggested. Electronically Signed by Frederic Self MD 03/22/2019 06:22 P
--- NOTE | 2019-03-26 14:50 | ED PDOC ---
Post-Departure Follow-Up karly duffy faxed formal report of ct chest for fu Elías Aguero MD March 26, 2019 14:50
== END 2019-03-21 23:02 | disposition home or self-care (01) ==
LOC: M ED 21:02 → EDBD 21:02 → M ED 23:02
DX: J44.9 Chronic obstructive pulmonary disease, unspecified (principal); R91.8 Other nonspecific abnormal finding of lung field; F33.9 Major depressive disorder, recurrent, unspecified; F43.10 Post-traumatic stress disorder, unspecified; F41.9 Anxiety disorder, unspecified; K21.9 Gastro-esophageal reflux disease without esophagitis; Z79.899 Other long term (current) drug therapy; Z87.891 Personal history of nicotine dependence

== ENCOUNTER → 2019-04-04 | Outpatient (CLI) | payer MEDICAID ==
[~2019-04-04] MED LIST changes: +AMIT75TA PO; +QC A650T3 PO; +SM N0.65 NARES
--- NOTE | 2019-04-04 14:39 | REP ---
Clinical: Pneumonia. Technique: PA and lateral. Comparison: 03/05/2019. Findings: Advanced COPD/emphysematous changes with large bilateral bullae and significant oligemia noted (left greater than right). Findings appear relatively stable. No acute consolidation, effusion, or pneumothorax. Mediastinum and cardiac silhouette are stable. Skeletal structures are intact. Impression: Advanced COPD/emphysematous changes similar to prior examination. No obvious acute consolidation. Electronically Signed by Rey Ngo MD 04/04/2019 02:30 P
== END ==
LOC: M SMT 13:29
PROVIDERS: ATTEND Internal Medicine Pulmonary Disease
DX: J18.9 Pneumonia, unspecified organism (principal); J44.0 Chronic obstructive pulmonary disease with (acute) lower respiratory infection

== ENCOUNTER → 2019-04-25 | Outpatient (REF) | payer MEDICAID | LOC: M SFHCPLAZ 12:20 | PROVIDERS: ATTEND Physician Assistant Medical | DX: J44.9 Chronic obstructive pulmonary disease, unspecified (principal) ==

== ENCOUNTER → 2019-05-20 | Outpatient (REF) | payer MEDICAID ==
[~2019-05-20] MED LIST changes: +AFRI0.058; +ALL10TAB29 PO; +BACL10TA2 PO; +BIOF4GEL4 EXT; +BUSP30TA PO; +DOCU100C16 PO; +DULE200A INH; +ENSULIQ19 PO; +EUCELOT4 EXT; +FLUT50SP33; +FURO80TA2 PO; +GABA-845 PO; +GENT1SOL16 OD; +LEVO25TA34 PO; +MAXA10TA15 PO; +MIRA1POW3 PO; +MUCI600T31 PO; +NORC1TAB7 PO; +OCEA0.654; +OYST500T91 PO; +PRED5TA PO; +PROP10TA56 PO; +SENN1TAB41 PO; +SYST0.6S OU; +TRAZ-189 PO; +VITA50005 PO; +ZONI100C17 PO
[2019-05-20 19:42] LABS: BLOOD UREA NITROGEN 20 MG/DL (7-18); CALCIUM LEVEL 8.4 MG/DL (8.8-10.2); CARBON DIOXIDE LEVEL 30 MEQ/L (21-32); CHLORIDE LEVEL 105 MEQ/L (98-107); CREATININE FOR GFR 1.08 MG/DL (0.70-1.30); GLOMERULAR FILTRATION RATE > 60.0 (>49); GLUCOSE, FASTING 104 MG/DL (70-100); POTASSIUM SERUM 3.9 MEQ/L (3.5-5.1); SODIUM LEVEL 139 MEQ/L (136-145)
== END ==
LOC: M SFHCPLAZ 15:38
PROVIDERS: ATTEND Physician Assistant Medical
DX: J44.1 Chronic obstructive pulmonary disease with (acute) exacerbation (principal)

== ENCOUNTER → 2019-05-27 | Outpatient (CLI) | payer MEDICAID ==
[~2019-05-27] MED LIST changes: -AFRI0.058; -ALL10TAB29 PO; -BACL10TA2 PO; -BIOF4GEL4 EXT; -BUSP30TA PO; -DOCU100C16 PO; -DULE200A INH; -ENSULIQ19 PO; -EUCELOT4 EXT; -FLUT50SP33; -FURO80TA2 PO; -GABA-845 PO; -GENT1SOL16 OD; -LEVO25TA34 PO; -MAXA10TA15 PO; -MIRA1POW3 PO; -MUCI600T31 PO; -NORC1TAB7 PO; -OCEA0.654; -OYST500T91 PO; -PRED5TA PO; -PROP10TA56 PO; -SENN1TAB41 PO; -SYST0.6S OU; -TRAZ-189 PO; -VITA50005 PO; -ZONI100C17 PO
--- NOTE | 2019-05-27 09:43 | REP ---
CT of the chest without IV contrast: Comparison is 03/21/2019. The spiculated lesion in the apex of the left lung today it measures 2.6 cm. This measured 2.6 cm previously. This is compatible with parenchymal scar, however, follow-up after additional 6 months is recommended for further evaluation. On the comparison study there was a focal zone of atelectasis and bronchiectasis anteriorly in the left upper lobe, is new from July 06, 2016. This has resolved and is no longer present, compatible with transient infiltrate. Large bullae are again present bilaterally, the largest in the left lower lobe measuring up to 12.2 cm in diameter. This is unchanged. Calcific pleural plaquing on the right is again identified, unchanged. There are no acute infiltrates or pleural effusions. There is no mediastinal or axillary adenopathy. The absence of IV contrast study is insensitive for hilar adenopathy per The unenhanced thoracic aorta is unremarkable. Cardiac size is normal. The visualized upper abdominal contents are unremarkable. There is no adrenal mass. Impression: Left upper lobe zone of atelectasis and bronchiectasis anteriorly on the prior study has resolved, compatible with transient infiltrate. The spiculated lesion in the left apex is unchanged in size, compatible with parenchymal scar, however, additional followup in 6 months is recommended for more assurance. There are no acute infiltrates or pleural effusions. The large bullae are again identified bilaterally, unchanged. Calcific pleural plaquing on the right is again identified, unchanged. Electronically Signed by Darrion Guerra MD 05/27/2019 09:35 A
== END ==
LOC: M RAD 09:08
PROVIDERS: ATTEND Physician Assistant Medical
DX: J44.1 Chronic obstructive pulmonary disease with (acute) exacerbation (principal); R09.02 Hypoxemia

== ENCOUNTER → 2019-06-05 | Outpatient (CLI) | payer MEDICAID ==
--- NOTE | 2019-06-05 15:03 | REP ---
Clinical: Back pain. Technique: AP, lateral, bilateral oblique and coned-down views of the lumbar spine. Comparison: 04/13/2018 Findings: Advanced osteopenia and multilevel degenerative disc osteophyte complexes are appreciated including chronic compression deformities. Alignment and lordosis maintained. Impression: Osteopenia and advanced multilevel degenerative spondylosis essentially unchanged compared to 04/13/2018. Electronically Signed by Rey Ngo MD 06/05/2019 02:55 P
--- NOTE | 2019-06-05 15:26 | REP ---
Clinical: Thoracic back pain. Technique: AP, lateral, swimmers views of the thoracic spine. Findings: Osteopenia and advanced multilevel degenerative changes are appreciated including multilevel compression deformities which remain relatively stable when compared to chest x-ray dated 04/04/2019. Advanced COPD/emphysematous changes with large bilateral bullae again noted as well as scattered biapical and right basilar scarring. Impression: Osteopenia and advanced multilevel degenerative changes including chronic-appearing compression deformities. Electronically Signed by Rey Ngo MD 06/05/2019 03:17 P
== END ==
LOC: M SMT 14:33
PROVIDERS: ATTEND Physician Assistant Medical
DX: M85.88 Other specified disorders of bone density and structure, other site (principal); M54.6 Pain in thoracic spine; M47.816 Spondylosis without myelopathy or radiculopathy, lumbar region

== ENCOUNTER → 2019-07-17 | Outpatient (CLI) | payer MEDICAID ==
--- NOTE | 2019-07-17 12:01 | REP ---
CT ABDOMEN AND PELVIS WITHOUT IV OR ORAL CONTRAST: HISTORY: Right lower quadrant abdomen pain. Rule out stone. No comparison study. Vomiting times [address] FINDINGS: Preliminary digital container coordinator radiograph demonstrates advanced emphysematous changes in the lungs with large bullae in the bases. Bowel gas pattern is normal. There is vascular calcification. The liver and spleen are normal in size homogeneous in texture. No abnormality is noted in the gallbladder or pancreas. No adrenal lesion is seen. The kidneys are morphologically intact. No hydronephrosis or intrarenal calculus is observed. Normal caliber aorta. A normal appendix is seen in the right lower quadrant. Small and large intestinal bowel loops are unremarkable. Urinary bladder, seminal vesicles, and prostate are unremarkable. There is one dystrophic calcification in the prostate. Bone window settings show no focal bony destructive lesion. There is diffuse osteopenia and there is loss of vertebral body heights consistent with osteoporotic compression at multiple lumbar levels. There are bilateral L5 pars defects and there is a mild 3 mm L5 as one spondylolisthesis. IMPRESSION: 1. Severe COPD and emphysema. 2. No evidence of urinary tract calculus or hydronephrosis. 3. Normal appendix. 4. Vascular calcification. 5. Osteoporotic wedging at multiple lumbar vertebrae. 6. Bilateral L5 spondylolysis with grade 1 L5-S1 spondylolisthesis. Electronically Signed by Frederic Self MD 07/17/2019 03:25 P
== END ==
LOC: M RAD 09:36
PROVIDERS: ATTEND Physician Assistant Medical
DX: R10.31 Right lower quadrant pain (principal)

== ENCOUNTER → 2019-07-25 | Outpatient (REF) | payer MEDICAID ==
[~2019-07-25] MED LIST changes: +AFRI0.058; +ALL10TAB29 PO; +BACL10TA2 PO; +BIOF4GEL4 EXT; +BUSP30TA PO; +DOCU100C16 PO; +DULE200A INH; +ENSULIQ19 PO; +EUCELOT4 EXT; +FLUT50SP33; +FURO80TA2 PO; +GABA-845 PO; +GENT1SOL16 OD; +LEVO25TA34 PO; +MAXA10TA15 PO; +MIRA1POW3 PO; +MUCI600T31 PO; +NORC1TAB7 PO; +OCEA0.654; +OYST500T91 PO; +PRED5TA PO; +PROP10TA56 PO; +SENN1TAB41 PO; +SYST0.6S OU; +TRAZ-189 PO; +VITA50005 PO; +ZONI100C17 PO
== END ==
PROVIDERS: ATTEND Physician Assistant Medical
DX: R05 Cough (principal); Z53.9 Procedure and treatment not carried out, unspecified reason

== ENCOUNTER → 2019-07-25 | Outpatient (REF) | payer MEDICAID | LOC: M SFHCPLAZ 17:29 | PROVIDERS: ATTEND Physician Assistant Medical | DX: R05 Cough (principal) ==

== ENCOUNTER → 2019-07-30 | Outpatient (CLI) | payer MEDICAID ==
[~2019-07-30] MED LIST changes: -AFRI0.058; -ALL10TAB29 PO; -BACL10TA2 PO; -BIOF4GEL4 EXT; -BUSP30TA PO; -DOCU100C16 PO; -DULE200A INH; -ENSULIQ19 PO; -EUCELOT4 EXT; -FLUT50SP33; -FURO80TA2 PO; -GABA-845 PO; -GENT1SOL16 OD; -LEVO25TA34 PO; -MAXA10TA15 PO; -MIRA1POW3 PO; -MUCI600T31 PO; -NORC1TAB7 PO; -OCEA0.654; -OYST500T91 PO; -PRED5TA PO; -PROP10TA56 PO; -SENN1TAB41 PO; -SYST0.6S OU; -TRAZ-189 PO; -VITA50005 PO; -ZONI100C17 PO
--- NOTE | 2019-08-01 15:43 | DEXA ---
AP SPINE L1 - L4 0.721 -3.8 -3.7 LT FEMUR TOTAL 0.659 -2.8 -2.6 LT NECK 0.580 -3.3 -2.7 RT FEMUR TOTAL 0.618 -3.1 -2.8 RT NECK 0.573 -3.3 -2.8 TOTAL BODY TOTAL OTHER COMMENTS: There is osteoporosis of the spine and hips. FOLLOW-UP: Recommendation for the next bone density exam: 2 years. CHRISTELLE
== END ==
LOC: M WHC 12:22
PROVIDERS: ATTEND Physician Assistant Medical
DX: M85.88 Other specified disorders of bone density and structure, other site (principal)

== ENCOUNTER → 2019-08-27 | Outpatient (REF) | payer MEDICAID ==
[2019-08-27 10:21] LABS: BASO % 0.5 % (0.0-1.0); EOS # 0.3 10^3/uL (0.0-0.5); EOS % 4.4 % (0.0-3.0); HEMATOCRIT 42.4 % (42.0-52.0); HEMOGLOBIN 13.9 g/dl (13.5-17.5); LYMPH # 1.5 10^3/uL (1.5-5.0); LYMPH % 20.2 % (24.0-44.0); MEAN CORPUSCULAR HEMOGLOBIN 34.1 pg (27.0-33.0); MEAN CORPUSCULAR HGB CONC 32.8 g/dl (32.0-36.5); MEAN CORPUSCULAR VOLUME 103.9 fl (80.0-96.0); MONO # 0.9 10^3/uL (0.0-0.8); MONO % 11.6 % (0.0-5.0); NEUTROPHILS # 4.8 10^3/uL (1.5-8.5); PLATELET COUNT, AUTOMATED 168 10^3/uL (150-450); RED BLOOD COUNT 4.08 10^6/uL (4.30-6.10); WHITE BLOOD COUNT 7.6 10^3/uL (4.0-10.0)
[2019-08-27 11:03] LABS: ALBUMIN 3.8 GM/DL (3.2-5.2); ALT/SGPT 26 U/L (12-78); BILIRUBIN,TOTAL 0.4 MG/DL (0.2-1.0); BLOOD UREA NITROGEN 24 MG/DL (7-18); CARBON DIOXIDE LEVEL 28 MEQ/L (21-32); CHLORIDE LEVEL 108 MEQ/L (98-107); CREATININE FOR GFR 1.09 MG/DL (0.70-1.30); FREE T4 1.11 NG/DL (0.76-1.46); GLOMERULAR FILTRATION RATE > 60.0 (>49); GLUCOSE, FASTING 136 MG/DL (70-100); SODIUM LEVEL 141 MEQ/L (136-145)
== END ==
PROVIDERS: ATTEND Physician Assistant Medical
DX: E03.9 Hypothyroidism, unspecified (principal); Z13.220 Encounter for screening for lipoid disorders; K21.9 Gastro-esophageal reflux disease without esophagitis

== ENCOUNTER → 2019-09-20 | Outpatient (REF) | payer MEDICAID ==
[~2019-09-20] MED LIST changes: +AFRI0.058; +ALL10TAB29 PO; +BACL10TA2 PO; +BIOF4GEL4 EXT; +BUSP30TA PO; +DOCU100C16 PO; +DULE200A INH; +ENSULIQ19 PO; +EUCELOT4 EXT; +FLUT50SP33; +FURO80TA2 PO; +GABA-845 PO; +GENT1SOL16 OD; +LEVO25TA34 PO; +MAXA10TA15 PO; +MIRA1POW3 PO; +MUCI600T31 PO; +NORC1TAB7 PO; +OCEA0.654; +OYST500T91 PO; +PRED5TA PO; +PROP10TA56 PO; +SENN1TAB41 PO; +SYST0.6S OU; +TRAZ-189 PO; +VITA50005 PO; +ZONI100C2 PO
== END ==
PROVIDERS: ATTEND Internal Medicine Pulmonary Disease
DX: R05 Cough (principal)

== ENCOUNTER 2019-09-25 00:45 | Emergency (ER) | payer MEDICAID ==
[~2019-09-25] VITALS: Ht 182.9 cm; Wt 81.9 kg
[~2019-09-25 00:45] MED LIST changes: -AFRI0.058; -ALL10TAB29 PO; -BACL10TA2 PO; -BIOF4GEL4 EXT; -BUSP30TA PO; -DOCU100C16 PO; -DULE200A INH; -ENSULIQ19 PO; -EUCELOT4 EXT; -FLUT50SP33; -FURO80TA2 PO; -GABA-845 PO; -GENT1SOL16 OD; -LEVO25TA34 PO; -MAXA10TA15 PO; -MIRA1POW3 PO; -MUCI600T31 PO; -NORC1TAB7 PO; -OCEA0.654; -OYST500T91 PO; -PRED5TA PO; -PROP10TA56 PO; -SENN1TAB41 PO; -SYST0.6S OU; -TRAZ-189 PO; -VITA50005 PO; -ZONI100C2 PO
[2019-09-25] MEDS ORDERED: DOCU100C16 PO (02:28)
[2019-09-25] MEDS ORDERED: BACL10TA2 PO (02:28)
[2019-09-25] MEDS ORDERED: PRED5TA PO (02:28)
[2019-09-25] MEDS ORDERED: TRAZ-189 PO (02:28)
[2019-09-25] MEDS ORDERED: ENSULIQ19 PO (02:28)
[2019-09-25] MEDS ORDERED: SENN1TAB41 PO (02:28)
[2019-09-25] MEDS ORDERED: FLUT50SP33 (02:28)
[2019-09-25] MEDS ORDERED: ALL10TAB29 PO (02:28)
[2019-09-25] MEDS ORDERED: LEVO25TA34 PO (02:28)
[2019-09-25] MEDS ORDERED: AFRI0.058 (02:28)
[2019-09-25] MEDS ORDERED: EUCELOT4 EXT ×2 (02:28)
[2019-09-25] MEDS ORDERED: GABA-845 PO (02:28)
[2019-09-25] MEDS ORDERED: NORC1TAB7 PO (02:28)
[2019-09-25] MEDS ORDERED: BIOF4GEL4 EXT (02:28)
[2019-09-25] MEDS ORDERED: FURO80TA2 PO (02:28)
[2019-09-25] MEDS ORDERED: PROP10TA56 PO (02:28)
[2019-09-25] MEDS ORDERED: MIRA1POW3 PO (02:28)
[2019-09-25] MEDS ORDERED: ZONI100C2 PO (02:28)
[2019-09-25] MEDS ORDERED: VITA50005 PO (02:28)
[2019-09-25] MEDS ORDERED: OCEA0.654 (02:28)
[2019-09-25] MEDS ORDERED: OYST500T91 PO (02:28)
[2019-09-25] MEDS ORDERED: GENT1SOL16 OD (02:28)
[2019-09-25] MEDS ORDERED: MUCI600T31 PO (02:28)
[2019-09-25] MEDS ORDERED: DULE200A INH (02:28)
[2019-09-25] MEDS ORDERED: SYST0.6S OU (02:28)
[2019-09-25] MEDS ORDERED: BUSP30TA PO (02:28)
[2019-09-25] MEDS ORDERED: MAXA10TA15 PO (02:28)
[2019-09-25 03:15] VITALS: BP 101/62
--- NOTE | 2019-09-25 04:22 | ECGEPIP ---
[facility] - ED Test Date: 2019-09-25 Pat Name: MARRY UNDERWOOD Department: Room: - Gender: Male [employer] Fe[employer]: SHIRA : 1955 Requested By: Owen Dueñas Order Number: [id number] Reading MD: Owen Davenport Measurements Intervals [place] Rate: 88 P: 79 MS: 156 QRS: 59 QRSD: 72 T: 66 QT: 316 QTc: 384 Interpretive Statements SINUS RHYTHM NSTTW ABNORMALITIES SIMILAR TO 08/25/15 Electronically Signed on 09-25-2019 4:21:54 EST by Owen Davenport
== END 2019-09-25 04:17 | disposition home or self-care (01) ==
LOC: M ED 00:45
DX: R06.89 Other abnormalities of breathing (principal); Z59.8 Other problems related to housing and economic circumstances; J44.9 Chronic obstructive pulmonary disease, unspecified; F41.9 Anxiety disorder, unspecified; F43.10 Post-traumatic stress disorder, unspecified; M54.9 Dorsalgia, unspecified; Z87.891 Personal history of nicotine dependence; Z88.0 Allergy status to penicillin; J30.9 Allergic rhinitis, unspecified; Z79.899 Other long term (current) drug therapy; Z79.51 Long term (current) use of inhaled steroids; Z79.52 Long term (current) use of systemic steroids

== ENCOUNTER → 2019-11-12 | Outpatient (REF) | payer MEDICAID ==
[~2019-11-12] MED LIST changes: +AFRI0.058; +ALL10TAB29 PO; +BACL10TA2 PO; +BIOF4GEL4 EXT; +BUSP30TA PO; +DOCU100C16 PO; +DULE200A INH; +ENSULIQ19 PO; +EUCELOT4 EXT; +FLUT50SP33; +FURO80TA2 PO; +GABA-845 PO; +GENT1SOL16 OD; +LEVO25TA34 PO; +MAXA10TA15 PO; +MIRA1POW3 PO; +MUCI600T31 PO; +NORC1TAB7 PO; +OCEA0.654; +OYST500T91 PO; +PRED5TA PO; +PROP10TA56 PO; +SENN1TAB41 PO; +SYST0.6S OU; +TRAZ-189 PO; +VITA50005 PO; +ZONI100C2 PO
[2019-11-12 12:26] LABS: CHOLESTEROL RISK RATIO 2.846 (<5)
== END ==
PROVIDERS: ATTEND Physician Assistant Medical
DX: Z13.220 Encounter for screening for lipoid disorders (principal)

== ENCOUNTER → 2019-12-12 | Outpatient (REF) | payer MEDICAID ==
[~2019-12-12] MED LIST changes: +ZONI100C17 PO; -ZONI100C2 PO
== END ==
LOC: M SFHCPLAZ 15:15
PROVIDERS: ATTEND Physician Assistant Medical
DX: J01.10 Acute frontal sinusitis, unspecified (principal)

== ENCOUNTER → 2020-01-06 | Outpatient (REF) | payer MEDICAID ==
[2020-01-06 17:27] LABS: BASO % 0.2 % (0.0-1.0); EOS % 0.2 % (0.0-3.0); HEMATOCRIT 43.8 % (42.0-52.0); HEMOGLOBIN 14.5 g/dl (13.5-17.5); LYMPH # 1.2 10^3/uL (1.5-5.0); LYMPH % 9.3 % (24.0-44.0); MEAN CORPUSCULAR HEMOGLOBIN 33.6 pg (27.0-33.0); MEAN CORPUSCULAR HGB CONC 33.1 g/dl (32.0-36.5); MEAN CORPUSCULAR VOLUME 101.4 fl (80.0-96.0); MONO # 1.4 10^3/uL (0.0-0.8); MONO % 10.9 % (0.0-5.0); NEUTROPHILS # 9.9 10^3/uL (1.5-8.5); NEUTROPHILS % 79.1 % (36.0-66.0); PLATELET COUNT, AUTOMATED 184 10^3/uL (150-450); RED BLOOD COUNT 4.32 10^6/uL (4.30-6.10); WHITE BLOOD COUNT 12.6 10^3/uL (4.0-10.0)
[2020-01-06 17:54] LABS: ALBUMIN 3.7 GM/DL (3.2-5.2); ALT/SGPT 36 U/L (12-78); BILIRUBIN,TOTAL 0.6 MG/DL (0.2-1.0); BLOOD UREA NITROGEN 23 MG/DL (7-18); CALCIUM LEVEL 9.2 MG/DL (8.8-10.2); CARBON DIOXIDE LEVEL 25 MEQ/L (21-32); CHLORIDE LEVEL 105 MEQ/L (98-107); CREATININE FOR GFR 0.88 MG/DL (0.70-1.30); GLOMERULAR FILTRATION RATE > 60.0 (>49); GLUCOSE, FASTING 120 MG/DL (70-100); SODIUM LEVEL 138 MEQ/L (136-145); TOTAL PROTEIN 7.4 GM/DL (6.4-8.2)
== END ==
LOC: M SFHCPLAZ 15:38
PROVIDERS: ATTEND Physician Assistant Medical
DX: J18.9 Pneumonia, unspecified organism (principal)

== ENCOUNTER → 2020-01-22 | Outpatient (CLI) | payer MEDICAID ==
--- NOTE | 2020-01-22 09:52 | REP ---
CT study of the cervical spine without contrast: History: Degenerative joint disease. No comparison study. Technique: Helical scanning is acquired and overlapping 2 mm high resolution axial images were generated and reviewed at bone and soft tissue window settings. Coronal and sagittal multiplanar re-formations images are generated. CT findings: There is no evidence of cervical spine element fracture. No skull base fracture is seen. Cervical vertebral body heights are preserved. Alignment is normal. Facet joints are normally aligned bilaterally at each cervical level on multiplanar re-formations images. There is no evidence of intraspinal or paraspinal mass . No extra vertebral abnormality is seen. There is degenerative narrowing of the C5-6 disc and the C6-7 disc with anterior and some posterior osteophytic ridging. There is mild diffuse bulging of the posterior margin of the C5-6 disc and there is uncovertebral spurring producing mild left-sided foraminal narrowing at C5-6. At C6-7 there is mild central disc bulging. There is mild bilateral uncovertebral spurring at C6-7. No other significant disc protrusion is seen. There is osteoarthritis at the articulation between the anterior arch of C1 and the dens. Impression: Degenerative spondylosis changes as above. Degenerative disc disease most pronounced at C5-6 and C6-7 where there is bilateral uncovertebral spurring. No acute abnormality. Electronically Signed by Frederic Self MD 01/22/2020 09:42 A
--- NOTE | 2020-01-22 10:16 | REP ---
CT STUDY OF THE THORACIC SPINE WITHOUT CONTRAST: HISTORY: Degenerative joint disease. Comparison is made with lateral chest x-ray from December 16, 2019. There is a thoracic spine series from June 05, 2019 which is also reviewed. CT FINDINGS: Incidental note is made of severe COPD with large bullous emphysematous changes in the visualized lung ford unchanged from comparison CT study May 25, 2019. There is calcific pleural plaquing at the right lung apex. There is a new zone of atelectatic change in the right lower lobe beneath the right hilus. There is diffuse osteoporosis and multiple wedge compression fracture deformities are seen including wedging and loss of anterior vertebral body height at the following levels: T4, T5, T6, T7, T9, T10, T12, and L1. These all appear to be chronic. No cortical step-off is seen. No retropulsion or central canal stenosis is appreciated. There is no evidence of thoracic disc herniation. No paravertebral soft-tissue mass is seen. IMPRESSION: Numerous thoracic osteoporotic wedge compression deformities as above. There is some healing sclerosis along the superior endplate of the T7 vertebral body which may indicate that this is the most recent. These are all unchanged from paired with the radiographs from June 05, 2019, however. No thoracic disc herniation or central canal stenosis is seen. No foraminal narrowing is observed. Electronically Signed by Frederic Self MD 01/22/2020 12:15 P
--- NOTE | 2020-01-22 10:17 | REP ---
CT LUMBAR SPINE WITHOUT CONTRAST: HISTORY: Degenerative disc disease. Comparison is made with imaging from CT abdomen and pelvis July 17, 2019. CT FINDINGS: There is a mild to moderate dextroconvex curvature in the lumbar spine. There is diffuse osteoporosis. No focal bony destructive lesion is seen. There are bilateral pars defects at the L5 vertebral body and a grade 1 5 mm, L5-S1, spondylolisthesis is seen. This is unchanged from July 17, 2019. There is osteoporotic wedge compression deformity and biconcave endplates at L5 and to a lesser extent at L4-L3 and L2 and L1. These findings are unchanged as well from the comparison CT multiplanar re-formation images. No new fracture or collapse is seen. Vascular calcification is noted. There is mild disc bulging at L2-L3. Mild facet hypertrophy is noted at this level as well. There is mild disc bulging diffusely at L3-4 and L4-5. At L4-5 there is mild facet and ligamentum flavum hypertrophy but no significant central canal stenosis is seen. There is no significant neural foraminal encroachment seen. IMPRESSION: Old osteoporotic wedge compression deformities throughout the lumbar spine. Bilateral L5 spondylolysis with a grade 1 5 mm L5-S1 spondylolisthesis. Disc bulging at L2-3, L3-4, and L4-5. Electronically Signed by Frederic Self MD 01/22/2020 12:15 P
== END ==
LOC: M RAD 09:10
PROVIDERS: ATTEND Physician Assistant Medical
DX: M47.816 Spondylosis without myelopathy or radiculopathy, lumbar region (principal)

== ENCOUNTER → 2020-02-18 | Outpatient (REF) | payer MEDICAID ==
[2020-02-18 13:02] LABS: CHOLESTEROL RISK RATIO 8.529 (<5)
[2020-02-18 13:03] LABS: TOTAL 25(OH) VITAMIN D 38.4 NG/ML (30.0-100.0)
[2020-02-18 13:13] LABS: PTH INTACT 42.2 PG/ML (18.5-88.0)
== END ==
PROVIDERS: ATTEND Physician Assistant Medical
DX: E55.9 Vitamin D deficiency, unspecified (principal); Z13.220 Encounter for screening for lipoid disorders; Z79.899 Other long term (current) drug therapy

== ENCOUNTER → 2020-02-21 | Outpatient (REF) | payer MEDICAID ==
[2020-02-21 12:58] LABS: ALBUMIN 3.4 GM/DL (3.2-5.2); ALT/SGPT 28 U/L (12-78); BILIRUBIN,TOTAL 0.3 MG/DL (0.2-1.0); BLOOD UREA NITROGEN 20 MG/DL (7-18); CALCIUM LEVEL 8.8 MG/DL (8.8-10.2); CARBON DIOXIDE LEVEL 31 MEQ/L (21-32); CHLORIDE LEVEL 106 MEQ/L (98-107); CPK CREATINE PHOSPHOKINASE 57 U/L (39-308); CREATININE FOR GFR 0.77 MG/DL (0.70-1.30); GLOMERULAR FILTRATION RATE > 60.0 (>49); GLUCOSE, FASTING 89 MG/DL (70-100); PTH INTACT 35.4 PG/ML (18.5-88.0); SODIUM LEVEL 140 MEQ/L (136-145); TOTAL 25(OH) VITAMIN D 79.6 NG/ML (30.0-100.0); TOTAL PROTEIN 6.4 GM/DL (6.4-8.2); VITAMIN B12 LEVEL 300 PG/ML (247-911)
== END ==
PROVIDERS: ATTEND Physician Assistant Medical
DX: Z12.5 Encounter for screening for malignant neoplasm of prostate (principal); D75.89 Other specified diseases of blood and blood-forming organs

== ENCOUNTER → 2020-02-22 | Outpatient (REF) | payer MEDICAID | PROVIDERS: ATTEND Physician Assistant Medical | DX: J32.9 Chronic sinusitis, unspecified (principal) ==

== ENCOUNTER 2020-03-06 14:09 | Inpatient (IN) | payer MEDICAID ==
[~2020-03-06] VITALS: Ht 182.9 cm; Wt 76.4 kg
[2020-03-06] MEDS ORDERED: ALBUTEROL 90 MCG/ACT 8GM HFA INHALER INH ONE (14:45)
[2020-03-06] MEDS ORDERED: DOXYCYCLINE HYCLATE 100 MG in D5W MINI-BAG PLUS 100 ML IV ONE (15:00)
[2020-03-06] MEDS ORDERED: cefTRIAXone SOD 1 GM in D5W MINI-BAG PLUS 50 ML IV ONE (15:00)
[2020-03-06 15:08] LABS: BASO % 0.4 % (0.0-1.0); EOS # 0.2 10^3/uL (0.0-0.5); EOS % 2.9 % (0.0-3.0); HEMATOCRIT 39.7 % (42.0-52.0); HEMOGLOBIN 12.8 g/dl (13.5-17.5); LYMPH # 1.2 10^3/uL (1.5-5.0); LYMPH % 16.9 % (24.0-44.0); MEAN CORPUSCULAR HEMOGLOBIN 33.2 pg (27.0-33.0); MEAN CORPUSCULAR HGB CONC 32.2 g/dl (32.0-36.5); MEAN CORPUSCULAR VOLUME 102.8 fl (80.0-96.0); MONO # 0.8 10^3/uL (0.0-0.8); MONO % 10.4 % (0.0-5.0); NEUTROPHILS % 69.3 % (36.0-66.0); PLATELET COUNT, AUTOMATED 129 10^3/uL (150-450); RED BLOOD COUNT 3.86 10^6/uL (4.30-6.10); WHITE BLOOD COUNT 7.2 10^3/uL (4.0-10.0)
[2020-03-06] MEDS ORDERED: MAXA10TA15 SL (15:11)
[2020-03-06] MEDS ORDERED: MOVA1TAB PO (15:11)
[2020-03-06] MEDS ORDERED: PROAAER10 INH (15:11)
[2020-03-06] MEDS ORDERED: VITA50005 PO (15:11)
[2020-03-06] MEDS ORDERED: POLYOPD OD (15:11)
[2020-03-06] MEDS ORDERED: MIRA1POW3 PO (15:11)
[2020-03-06] MEDS ORDERED: MILKSUS10 PO (15:11)
--- NOTE | 2020-03-06 15:13 | REP ---
CHEST, SINGLE VIEW: Single view of the chest is performed and compared to prior study of 12/16/2019 as well as other prior exams. There is right basilar infiltrate or atelectasis. There is underlying emphysematous and fibrotic change bilaterally. There is mild biapical pleural thickening. Heart is not enlarged. There is calcification and tortuosity of the thoracic aorta. IMPRESSION: Chronic emphysematous and fibrotic changes. Right base atelectasis/infiltrate. Electronically Signed by Darrion Leyva MD 03/06/2020 03:44 P
[2020-03-06 15:39] LABS: ALBUMIN 3.6 GM/DL (3.2-5.2); ALT/SGPT 25 U/L (12-78); BILIRUBIN,DIRECT < 0.1 MG/DL (0.0-0.2); BILIRUBIN,TOTAL 0.3 MG/DL (0.2-1.0); BLOOD UREA NITROGEN 20 MG/DL (7-18); CALCIUM LEVEL 8.8 MG/DL (8.8-10.2); CARBON DIOXIDE LEVEL 29 MEQ/L (21-32); CHLORIDE LEVEL 106 MEQ/L (98-107); CK-MB VALUE MASS < 1.0 NG/ML (<3.6); CPK CREATINE PHOSPHOKINASE 64 U/L (39-308); CREATININE FOR GFR 0.91 MG/DL (0.70-1.30); GLOMERULAR FILTRATION RATE > 60.0 (>49); GLUCOSE, FASTING 102 MG/DL (70-100); MB/CK RELATIVE INDEX 1.56 (< OR =4); NT-PRO BNP 82 PG/ML (<125); POTASSIUM SERUM 4.1 MEQ/L (3.5-5.1); SODIUM LEVEL 141 MEQ/L (136-145); THYROXINE (T4) 10.2 UG/DL (4.5-12.0); TOTAL PROTEIN 6.7 GM/DL (6.4-8.2); TROPONIN I < 0.02 NG/ML (< 0.10)
[2020-03-06] MEDS ORDERED: RIZATRIPTAN MLT 10 MG TAB PO PRN (17:15)
[2020-03-06 17:18] LABS: VITAMIN B12 LEVEL 322 PG/ML (247-911)
--- NOTE | 2020-03-06 17:29 | HPEPDOC ---
[facility] Medical History & Physical Date of Admission March 06, 2020 Date of Service: March 06, 2020 Primary Care Physician: Charley Dimas Attending Physician: MOHINI SAHNI MD History and Physical PRIMARY CARE PROVIDER: Charley Dimas ATTENDING: Dr. Mohini Sahni CHIEF COMPLAINT: SOB HISTORY OF PRESENT ILLNESS: Patient is a 64 year old male presenting with chief complaint of shortness of breath. He has a ten day history of subjective fevers/chills, chest tightness, worsening shortness of breath, worsening cough productive of green sputum, and mild nausea. He just finished a 10 day course of levaquin following sputum culture results at his PCP's office and presents as he continues to have worsening of his SOB and did not feel significantly better following antibiotic administration. In the ED a CXR was done demonstrating Right basilar atelectasis vs. pneumonia so the hospitalist service was contacted for admission. PAST MEDICAL HISTORY: COPD-Gold stage IV Hypothyroidism DDD Lung nodules on CT, non-surgical candidate, follows w/ Pulm associates chronic back pain anxiety/depression Post nasal drip GERD Osteoarthiritis Osteoporosis Hx of EtOH use disorder Hx of tobacco use disorder PAST SURGICAL HISTORY: L-venous malformation removed SOCIAL HISTORY: denies alcohol use, 46 pack year history but quit 4 years ago, denies any marijuana, heroin, cocaine, or PCP use. FAMILY HISTORY: Mother of multiple myeloma Father of COPD complication ALLERGIES: Please see below. REVIEW OF SYSTEMS: GENERAL: Denies recent unexpected weight change, night sweats, hemoptysis HEENT: Denies headache, dizziness, vision changes, hearing loss, sore throat CARDIOVASCULAR: Denies chest pain, palpitations, orthopnea RESPIRATORY: As above. GASTROINTESTINAL: denies vomiting, abdominal pain, constipation, diarrhea, bloody stool GENITOURINARY: Denies dysuria,urinary urgency, hematuria. MUSCULOSKELETAL: Denies muscle/joint pain, weakness, stiffness NEUROLOGICAL: Denies any numbness/tingling, focal weakness, or syncope HOME MEDICATIONS: Please see below. PHYSICAL EXAMINATION: Vitals: (see below) General: Mild diaphoretic appearing male in no acute distress, laying comfortably in bed with mild-moderately increased WOB, no accessory muscle use HEENT: Normocephalic, atraumatic. EOMI. No scleral icterus. Moist mucous membranes. No pharyngeal erythema or uvular deviation. Neck: No JVD, lymphadenopathy, or thyromegaly. Cardiac: RRR, Normal S1 and S2, No murmurs, gallops, rubs. Pulm: Severely diminished breath sounds bilaterally. Symmetric thorax. Prolonged end expiratory wheezes, no crackles, rhonchi Abd: Bowel Sounds present. Abdomen is soft, non-tender, non-distended. Ext: 1+ pitting edema in bilateral lower extremities, no cyanosis Neuro: No focal neuro deficits LABORATORY DATA: See below. IMAGIN03/06/2020 chest x-ray: Chronic emphysematous and fibrotic changes. Right base atelectasis/infiltrate. 03/06/2020 CT chest: Results pending. MICROBIOLOGY: Please see below. ASSESSMENT/PLAN: #. Right lower lobe pneumonia -Cefepime and Doxycycline to cover for pseudomonal and MRSA coverage. -Sputum cultures/gram stain ordered, procal, pulmonary rehab, incentive spirometer, blood cultures x2 pending, COVID negative. #. COPD exacerbation -Scheduled nebs Q6H, IV steroids - On 4 liters O2 at home, will titrate O2 to 88-92% #. Tachycardia -Patient had 5 minute episode of what sounds like MAT that resolved spontaneously, EKG taken as episode was resolving, which appears to be chronic condition. - He is on propranolol 10 mg daily #. Migraine - Continue home meds #. LE edema - Unknown if he has hx of CHF, BNP normal - Continue home lasix #. Anxiety/depression -Continue home meds #. Hypothyroidism - Continue home synthroid #. DDD -Continue 1/2 dose home norco, baclofen -DVT prophy: heparin, teds, seqs -GI prophylaxis: IV Protonix Attending attestation: I evaluated and examined the patient in person; I discussed the care with Resident in detail and agree with the plan above. Vital Signs Vital Signs Date Time Temp Pulse Resp B/P (MAP) Pulse Ox O2 Delivery O2 Flow Rate FiO2 03/06/20 16:39 93 18 97 Nasal Cannula 4.0 03/06/20 15:15 103/71 (82) 03/06/20 14:14 97.6 Laboratory Data Labs 24H Laboratory Tests 2 03/06/20 14:47: Immature Granulocyte % (Auto) 0.1, Neutrophils (%) (Auto) 69.3H, Lymphocytes (%) (Auto) 16.9L, Monocytes (%) (Auto) 10.4H, Eosinophils (%) (Auto) 2.9, Basophils (%) (Auto) 0.4, Neutrophils # (Auto) 5.0, Lymphocytes # (Auto) 1.2L, Monocytes # (Auto) 0.8, Eosinophils # (Auto) 0.2, Basophils # (Auto) 0.0, Nucleated Red Blood Cells % (auto) 0.0, Anion Gap 6L, Glomerular Filtration Rate > 60.0, Calcium Level 8.8, Total Bilirubin 0.3, Direct Bilirubin < 0.1, Aspartate Amino Transf (AST/SGOT) 12, Alanine Aminotransferase (ALT/SGPT) 25, Alkaline Phosphatase 76, Total Creatine Kinase 64, Creatine Kinase MB < 1.0, Creatine Kinase MB Relative Index 1.56, Troponin I < 0.02, YX-Nlz-[id number]-Type Natriuretic Peptide 82, Total Protein 6.7, Albumin 3.6, Albumin/Globulin Ratio 1.16, Thyroid Stimulating Hormone (TSH) 1.340, Thyroxine (T4) 10.2 03/06/20 14:48: Lactic Acid Level 1.0, Coronavirus (COVID-19)(PCR) NEGATIVE CBC/BMP Laboratory Tests 03/06/20 14:47 Microbiology Microbiology 03/06/20 Blood Culture, Received Pending 03/06/20 Blood Culture, Received Pending Home Medications Scheduled Acetaminophen (Acetaminophen 8 Hour) 650 Mg Tablet.er, 650 MG PO Q6H 0000, 0600, 1200, 1800 Amitriptyline HCl (Amitriptyline HCl) 75 Mg Tablet, 75 MG PO QHS Baclofen (Baclofen) 10 Mg Tablet, 10 MG PO TID 0900, 1300, 2000 Buspirone HCl (Buspirone HCl) 30 Mg Tablet, 30 MG PO TID 0900, 1300, 2000 Calcium Carbonate/Vitamin D3 (Calcium 500-Vit D3 200 Tablet) 1 Each Tablet, 1 TAB PO BID Cetirizine HCl (Cetirizine HCl) 10 Mg Tablet, 10 MG PO QHS Docusate Sodium (Docusate Sodium) 100 Mg Capsule, 100 MG PO DAILY Ergocalciferol (Vitamin D2) (Vitamin D2) 50,000 Units Cap, 50,000 UNITS PO QWEEK MONDAY Fluticasone Propionate (Fluticasone Propionate) 15.8 Ml [place].susp, 1 SPRAY NA DAILY MAY SELF ADMINISTER AND KEEP AT BEDSIDE Furosemide (Furosemide) 80 Mg Tablet, 40 MG PO DAILY Gabapentin (Gabapentin) 400 Mg Capsule, 400 MG PO TID 0600, 1200, 1800 Guaifenesin (Mucinex) 600 Mg Tab.er.12h, 600 MG PO BID Levothyroxine Sodium (Levoxyl) 25 Mcg Tablet, 25 MCG PO DAILY Mometasone/Formoterol (Dulera 200 Mcg/5 Mcg Inhaler) 13 Gm Hfa.aer.ad, 2 PUFFS INH BID Naloxegol Oxalate (Movantik) 12.5 Mg Tablet, 12.5 MG PO DAILY [place]-3 Fatty Acids/Fish Oil ([place] 3 Fish Oil Softgel) 1 Cap Cap, 1 CAP PO DAILY Pantoprazole Sodium (Protonix) 40 Mg Tab, 40 MG PO DAILY Polyethylene Glycol 3350 (Miralax) 17 Gm Powd.pack, 17 GM PO BID 0800, 1700; RESIDENT WILL PLACE MEDICATION IN HIS OWN OJ AT BEDSIDE AND SELF- ADMINISTER Polyvinyl Alcohol (Artificial Tears) 15 Ml Drops, 1 DROP OD QID Prednisone (Prednisone) 5 Mg Tablet, 5 MG PO DAILY Propranolol HCl (Propranolol HCl) 10 Mg Tablet, 10 MG PO BID Propylene Glycol (Systane Complete) 10 Ml Drops, 1 DROP OU Q4H 0000, 0400, 0800, 1200, 1600, 2000 Sennosides/Docusate Sodium (Senna-S Tablet) 1 Each Tablet, 1 TAB PO DAILY Tiotropium [place] (Spiriva) 18 Mcg Cap, 18 MCG INH QHS Trazodone HCl (Trazodone HCl) 100 Mg Tablet, 100 MG PO QHS Zonisamide (Zonisamide) 100 Mg Capsule, 200 MG PO QHS Scheduled PRN Albuterol Sulf (Albuterol Sulfate) 2.5 Mg/3 Ml Nebu, 3 ML INH Q4H PRN for SHORTNESS OF BREATH Albuterol Sulfate (Proair Hfa) 8.5 Gm Hfa.aer.ad, 2 PUFF INH Q4H PRN for SHORTNESS OF BREATH Hydrocodone/Acetaminophen ([place] 5-325 Tablet) 1 Each Tablet, 2 TAB PO Q6H PRN for PAIN Magnesium Hydroxide (Milk of Magnesia) 400 Mg/5 Ml Oral.susp, 30 ML PO DAILY PRN for CONSTIPATION Oxymetazoline HCl (Afrin) 15 Ml [place], 2 SPRAY NA Q12H PRN for NASAL DRYNESS PLACE AT BEDSIDE FOR PATIENT TO USE NEEDED Rizatriptan Benzoate (Maxalt Document Advisor) 10 Mg Tab.rapdis, 5 MG PO BID PRN for MIGRAINE Sodium Chloride ([place]) 104 Ml [place], 2 SPRAY NA QID PRN for NASAL DRYNESS Allergies Coded Allergies: ENVIROMENTAL (Verified Allergy, Unknown, "MOST PAIN MEDS", 03/21/19) Penicillins (Verified Allergy, Unknown, 03/21/19) A-FIB/CHADSVASC A-FIB History Current/History of A-Fib/PAF?: No GME ATTESTATION GME ATTESTATION My faculty preceptor for this patient encounter was physically present during the encounter and was fully available. All aspects of the patient interview, examination, medical decision making process, and medical care plan development were reviewed and approved by the faculty preceptor. The faculty preceptor is aware and concurs with the plan as stated in the body of this note and will at test to such by his/her cosignature. PAIGE PELAYO DO March 06, 2020 17:29 MOHINI SAHNI MD March 10, 2020 18:33
[2020-03-06] MEDS ORDERED: IPRATROPIUM 0.5MG/ALBUTEROL 2.5MG INH SOL UD 3ML (DUONEB)(J7620) NEB PRN (17:30)
--- NOTE | 2020-03-06 17:42 | REP ---
CT CHEST WITHOUT IV CONTRAST: CT chest performed without IV contrast. Sagittal and coronal reconstruction images are performed. There are severe bullous changes bilaterally. There are scattered bilateral fibroatelectatic changes. There is acute parenchymal density posteriorly and inferiorly in the right lower lobe representing a small area of atelectasis or infiltrate. No pleural or pericardial effusion is seen. Right hemidiaphragm is mildly elevated. The heart is normal in size. There is mild atherosclerotic calcification of the thoracic aorta without aneurysm. There are degenerative changes of the spine. There are multiple compression deformities of the thoracic spine, unchanged since the prior CT of 01/22/2020. IMPRESSION: Mild right lower lobe atelectasis/infiltrate. Severe bullous changes. Multiple stable compression deformities of the thoracic spine. Electronically Signed by Darrion Leyva MD 03/09/2020 11:55 A
[2020-03-06] MEDS ORDERED: PILL CUTTER 1 EACH XX PRN (17:45)
[2020-03-06 18:00] VITALS: BP 105/72
[2020-03-06] MEDS: ACETAMINOPHEN 650MG ER TAB (TYLENOL ARTHRITIS) PO SCH ×2 (18:23→23:41)
[2020-03-06] MEDS: methylPREDNISolone INJ 40 MG/1 ML VIAL (J2920) IV SCH (18:23)
[2020-03-06 19:37] VITALS: O2SAT 95
[2020-03-06] MEDS: IPRATROPIUM 0.5MG/ALBUTEROL 2.5MG INH SOL UD 3ML (DUONEB)(J7620) NEB SCH (19:37)
[2020-03-06] MEDS: ZONISAMIDE 100 MG CAP (ZONEGRAN) PO SCH (20:56)
[2020-03-06] MEDS: AMITRIPTYLINE 25 MG TAB PO SCH (20:56)
[2020-03-06] MEDS: guaiFENesin ER 600 MG TAB PO SCH (20:57)
[2020-03-06] MEDS: busPIRone 10 MG TAB PO SCH (20:57)
[2020-03-06] MEDS: BACLOFEN 10 MG TAB PO SCH (20:57)
[2020-03-06] MEDS: traZODone 100 MG TAB PO SCH (20:57)
[2020-03-06] MEDS: PROPRANOLOL 10 MG TAB PO SCH (20:58)
[2020-03-06] MEDS: HEPARIN SOD (PORCINE) 5000UNITS/ML VIAL (J1644 PER 1000UNITS) SQ SCH (21:00)
[2020-03-06] MEDS: CEFEPIME HCL 2 GM in D5W 50 ML IV SCH (21:00)
[2020-03-06 22:00] VITALS: BP 120/73
--- NOTE | 2020-03-06 22:54 | ECGEPIP ---
[facility] - ED Test Date: 2020-03-06 Pat Name: MARRY UNDERWOOD Department: Room: - Gender: Male Gear Design Engineer: : 1955 Requested By: Heather Almendarez Order Number: [id number] Reading MD: Owen Davenport Measurements Intervals [place] Rate: 69 P: 51 NE: 141 QRS: 49 QRSD: 98 T: 49 QT: 404 QTc: 433 Interpretive Statements SINUS RHYTHM NSTTW ABNORMALITIES SIMILAR TO 09/25/19 Electronically Signed on 03-06-2020 22:54:24 EDT by Owen Davenport
[2020-03-07 00:28] VITALS: O2SAT 97
[2020-03-07] MEDS: IPRATROPIUM 0.5MG/ALBUTEROL 2.5MG INH SOL UD 3ML (DUONEB)(J7620) NEB SCH ×5 (00:28→23:08)
[2020-03-07] MEDS: DOXYCYCLINE HYCLATE 100 MG in D5W MINI-BAG PLUS 100 ML IV SCH ×2 (04:39→16:24)
[2020-03-07 05:30] VITALS: BP 78/50
[2020-03-07] MEDS: LEVOTHYROXINE 25MCG TABLET (0.025MG) PO SCH (05:44)
[2020-03-07] MEDS: HEPARIN SOD (PORCINE) 5000UNITS/ML VIAL (J1644 PER 1000UNITS) SQ SCH ×3 (05:44→22:59)
[2020-03-07] MEDS: ACETAMINOPHEN 650MG ER TAB (TYLENOL ARTHRITIS) PO SCH ×4 (05:44→22:58)
[2020-03-07] MEDS ORDERED: NS 500 ML IV ONE (05:45)
[2020-03-07 06:00] VITALS: BP 85/51
[2020-03-07] MEDS: methylPREDNISolone INJ 40 MG/1 ML VIAL (J2920) IV SCH ×2 (06:18→17:41)
[2020-03-07] MEDS: CEFEPIME HCL 2 GM in D5W 50 ML IV SCH ×3 (06:18→22:58)
[2020-03-07 06:35] VITALS: BP 98/62
[2020-03-07 06:53] LABS: HEMATOCRIT 37.2 % (42.0-52.0); HEMOGLOBIN 12.6 g/dl (13.5-17.5); MEAN CORPUSCULAR HEMOGLOBIN 34.1 pg (27.0-33.0); MEAN CORPUSCULAR HGB CONC 33.9 g/dl (32.0-36.5); MEAN CORPUSCULAR VOLUME 100.8 fl (80.0-96.0); PLATELET COUNT, AUTOMATED 141 10^3/uL (150-450); RED BLOOD COUNT 3.69 10^6/uL (4.30-6.10); WHITE BLOOD COUNT 8.5 10^3/uL (4.0-10.0)
[2020-03-07 07:06] LABS: BLOOD UREA NITROGEN 22 MG/DL (7-18); CALCIUM LEVEL 8.4 MG/DL (8.8-10.2); CARBON DIOXIDE LEVEL 25 MEQ/L (21-32); CHLORIDE LEVEL 106 MEQ/L (98-107); CREATININE FOR GFR 0.88 MG/DL (0.70-1.30); GLOMERULAR FILTRATION RATE > 60.0 (>49); GLUCOSE, FASTING 158 MG/DL (70-100); POTASSIUM SERUM 4.2 MEQ/L (3.5-5.1); SODIUM LEVEL 138 MEQ/L (136-145)
[2020-03-07] MEDS: TIOTROPIUM INHALER/CAPSULE (SPIRIVA) INH SCH (07:06)
[2020-03-07] MEDS: busPIRone 10 MG TAB PO SCH ×3 (08:37→20:33)
[2020-03-07] MEDS: guaiFENesin ER 600 MG TAB PO SCH ×2 (08:37→20:33)
[2020-03-07] MEDS: BACLOFEN 10 MG TAB PO SCH ×3 (08:37→20:33)
[2020-03-07] MEDS: PANTOPRAZOLE 40MG VIAL (C9113 PER 1) IV SCH (08:37)
[2020-03-07] MEDS ORDERED: FUROSEMIDE 40 MG TAB PO SCH (09:00)
[2020-03-07] MEDS ORDERED: LR 1,000 ML IV ONE (11:00)
[2020-03-07] MEDS: PROPRANOLOL 10 MG TAB PO SCH ×2 (11:03→20:51)
--- NOTE | 2020-03-07 13:46 | IPNPDOC ---
Text Note Date of Service The patient was seen on 03/07/20. NOTE SUBJECTIVE: Patient is a 64 year old male presented with ten day history of wo rsening upper respiratory symptoms despite PO antibiotics.Patient had low blood pressure overnight and was given 500cc bolus. Otherwise it was uneventful, he reports his breathing and chest tightness is mildly improved. He denies any fevers, chills, chest pain, nausea, vomiting, abdominal pain. OBJECTIVE: PHYSICAL EXAMINATION: Vitals: (see below) General: No acute distress, laying comfortably in bed with no increased WOB, no accessory muscle use HEENT: Normocephalic, atraumatic. EOMI. No scleral icterus. Moist mucous membranes. No pharyngeal erythema or uvular deviation. Neck: No JVD, lymphadenopathy, or thyromegaly. Cardiac: RRR, Normal S1 and S2, No murmurs, gallops, rubs. Pulm: Diminished breath sounds bilaterally. Symmetric thorax. faint end exp wheezes, no crackles, rhonchi Abd: Bowel Sounds present. Abdomen is soft, non-tender, non-distended. Ext: 1+ pitting edema in bilateral lower extremities, no cyanosis Neuro: No focal neuro deficits LABORATORY DATA, MICROBIOLOGY: Please see below. ASSESSMENT AND PLAN: #. Right lower lobe pneumonia -Continue cefepime and Doxycycline to cover for pseudomonal and MRSA coverage. -Sputum cultures/gram stain ordered, procal, pulmonary rehab, incentive spirometer, blood cultures x2 pending, COVID negative. #. Hypotension -Will give patient additional fluid bolus as his blood pressure continues to be borderline. #. COPD exacerbation -Scheduled nebs Q6H, IV steroids - On 4 liters O2 at home, will titrate O2 to 88-92% #. Tachycardia -Patient had 5 minute episode of what sounds like MAT that resolved spontaneously, EKG taken as episode was resolving, which appears to be chronic condition. - He is on propranolol 10 mg daily #. Migraine - Continue home meds #. LE edema - Unknown if he has hx of CHF, BNP normal - Continue home lasix #. Anxiety/depression -Continue home meds #. Hypothyroidism - Continue home synthroid #. DDD -Continue 1/2 dose home norco, baclofen -DVT prophy: heparin, teds, seqs -GI prophylaxis: IV pantoprazole Attending attestation: I evaluated and examined the patient in person; I discussed the care with Resident in detail and agree with the plan above. VS,Fishbone, I+O VS, Fishbone, I+O Laboratory Tests 03/06/20 14:47 03/07/20 05:58 Vital Signs Date Time Temp Pulse Resp B/P (MAP) Pulse Ox O2 Delivery O2 Flow Rate FiO2 03/07/20 11:03 84 110/67 03/07/20 09:00 4.0 03/07/20 06:00 98.9 16 94 Nasal Cannula I&O- Last 24 Hours up to 6 AM 03/07/20 06:00 Intake Total 890 ml Output Total 0 ml Balance 890 ml GME ATTESTATION GME ATTESTATION My faculty preceptor for this patient encounter was physically present during the encounter and was fully available. All aspects of the patient interview, examination, medical decision making process, and medical care plan development were reviewed and approved by the faculty preceptor. The faculty preceptor is aware and concurs with the plan as stated in the body of this note and will attest to such by his/her cosignature. PAIGE PELAOY DO March 07, 2020 13:46 MOHINI SAHNI MD March 10, 2020 18:35
[2020-03-07 14:00] VITALS: BP 103/65
[2020-03-07] MEDS: NORCO, ANEXSIA 5/325MG TABLET (HYDROcodone/ACETAMINOPHEN) PO PRN (16:55)
--- NOTE | 2020-03-07 19:36 | ECGEPIP ---
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
--- NOTE | 2020-03-07 19:37 | ECGEPIP ---
[facility] Test Date: 2020-03-06 Pat Name: MARRY UNDERWOOD Department: Room: [place] [address] Gender: Male Senior Manufacturing Engineer: : 1955 Requested By: MOHINI Rausch Order Number: [id number] Reading MD: Arpit Ellison Measurements Intervals [place] Rate: 99 P: 70 MS: 136 QRS: 56 QRSD: 96 T: 61 QT: 346 QTc: 444 Interpretive Statements Normal sinus rhythm Nonspecific T wave abnormality Compared to prior tracing of earlier this date at 17:07, heart rate is slower Electronically Signed on 03-07-2020 19:37:26 EDT by Arpit Ellison
[2020-03-07] MEDS: traZODone 100 MG TAB PO SCH (20:33)
[2020-03-07] MEDS: ZONISAMIDE 100 MG CAP (ZONEGRAN) PO SCH (20:33)
[2020-03-07] MEDS: AMITRIPTYLINE 25 MG TAB PO SCH (20:33)
[2020-03-07 20:34] VITALS: BP 106/66
[2020-03-08] MEDS: DOXYCYCLINE HYCLATE 100 MG in D5W MINI-BAG PLUS 100 ML IV SCH ×2 (04:33→16:23)
[2020-03-08 06:00] VITALS: BP 123/69
[2020-03-08] MEDS: HEPARIN SOD (PORCINE) 5000UNITS/ML VIAL (J1644 PER 1000UNITS) SQ SCH ×3 (06:15→22:23)
[2020-03-08] MEDS: methylPREDNISolone INJ 40 MG/1 ML VIAL (J2920) IV SCH (06:15)
[2020-03-08] MEDS: CEFEPIME HCL 2 GM in D5W 50 ML IV SCH ×3 (06:16→22:21)
[2020-03-08] MEDS: LEVOTHYROXINE 25MCG TABLET (0.025MG) PO SCH (06:16)
[2020-03-08] MEDS: ACETAMINOPHEN 650MG ER TAB (TYLENOL ARTHRITIS) PO SCH ×3 (06:16→17:51)
[2020-03-08] MEDS: NORCO, ANEXSIA 5/325MG TABLET (HYDROcodone/ACETAMINOPHEN) PO PRN ×2 (06:18→16:23)
[2020-03-08 06:47] LABS: HEMATOCRIT 34.3 % (42.0-52.0); HEMOGLOBIN 11.5 g/dl (13.5-17.5); MEAN CORPUSCULAR HGB CONC 33.5 g/dl (32.0-36.5); MEAN CORPUSCULAR VOLUME 101.5 fl (80.0-96.0); PLATELET COUNT, AUTOMATED 148 10^3/uL (150-450); RED BLOOD COUNT 3.38 10^6/uL (4.30-6.10); WHITE BLOOD COUNT 12.2 10^3/uL (4.0-10.0)
[2020-03-08 07:02] LABS: BLOOD UREA NITROGEN 22 MG/DL (7-18); CALCIUM LEVEL 8.7 MG/DL (8.8-10.2); CARBON DIOXIDE LEVEL 26 MEQ/L (21-32); CHLORIDE LEVEL 106 MEQ/L (98-107); CREATININE FOR GFR 0.87 MG/DL (0.70-1.30); GLOMERULAR FILTRATION RATE > 60.0 (>49); GLUCOSE, FASTING 139 MG/DL (70-100); SODIUM LEVEL 139 MEQ/L (136-145)
[2020-03-08] MEDS: IPRATROPIUM 0.5MG/ALBUTEROL 2.5MG INH SOL UD 3ML (DUONEB)(J7620) NEB SCH ×5 (07:21→23:26)
[2020-03-08] MEDS: TIOTROPIUM INHALER/CAPSULE (SPIRIVA) INH SCH (07:22)
[2020-03-08] MEDS: PANTOPRAZOLE 40MG VIAL (C9113 PER 1) IV SCH (09:45)
[2020-03-08] MEDS: guaiFENesin ER 600 MG TAB PO SCH ×2 (09:45→22:22)
[2020-03-08] MEDS: BACLOFEN 10 MG TAB PO SCH ×3 (09:45→22:22)
[2020-03-08] MEDS: busPIRone 10 MG TAB PO SCH ×3 (09:45→22:23)
[2020-03-08] MEDS: PROPRANOLOL 10 MG TAB PO SCH ×2 (09:46→22:23)
[2020-03-08 14:00] VITALS: BP 113/73
--- NOTE | 2020-03-08 16:54 | IPNPDOC ---
Date Seen The patient was seen on 03/08/20. Progress Note SUBJECTIVE: 64-year-old male with past medical history of severe COPD with extensive bullous disease, oxygen and oral steroid dependent, was admitted for pneumonia/COPD exacerbation. Patient has had significant clinical improvement since hospitalization, now at his baseline, having mild dyspnea/cough which is at baseline as well. He has no other complaints, no acute events overnight, denies any chest pain, nausea, vomiting, bone pain, diarrhea or constipation. 10 point review of system is negative except for above PHYSICAL EXAMINATION: VITAL SIGNS: Please see below. GENERAL: No distress HEENT: Normocephalic, atraumatic, moist mucous membranes NECK: Supple CARDIOVASCULAR EXAMINATION: S1, S2 RESPIRATORY EXAMINATION: Very poor air movement, no rhonchi, no wheezing ABDOMINAL EXAMINATION: Soft, nontender, nondistended, positive bowel sounds EXTREMITIES: Range of motion intact SKIN: No rash NEUROLOGICAL EXAMINATION: Alert and oriented 3, no focal deficits PSYCHIATRIC EXAMINATION: Calm and cooperative LABORATORY DATA, IMAGING STUDIES, MICROBIOLOGY: Please see below. ASSESSMENT AND PLAN: 64-year-old male with severe COPD is admitted for pneumonia/COPD exacerbation. PROBLEMS: 1. Pneumonia/COPD exacerbation: CT chest showing possible right lower lobe pneumonia, has extensive bullous disease, poor calcitonin negative, clinically back to baseline, discontinue IV steroids, restart home, prednisone 5 mg daily. Patient is from [facility] and unable to be discharged today as they do not accept any patients over the weekend, plan for discharge tomorrow. 2. End-stage COPD: Continue outpatient regimen. 3. Hypothyroidism: Continue levothyroxine DVT prophylaxis: Heparin subcutaneous GI prophylaxis: PPI VS, I&O, 24H, Fishbone Vital Signs/I&O Vital Signs Date Time Temp Pulse Resp B/P (MAP) Pulse Ox O2 Delivery O2 Flow Rate FiO2 03/08/20 16:23 16 94 Nasal Cannula 4.0 03/08/20 14:00 98.6 72 113/73 (86) I&O- Last 24 Hours up to 6 AM 03/08/20 06:00 Intake Total 1900 ml Output Total 0 ml Balance 1900 ml Laboratory Data 24H LABS Laboratory Tests 2 03/08/20 05:45: Nucleated Red Blood Cells % (auto) 0.0, Anion Gap 7L, Glomerular Filtration Rate > 60.0, Calcium Level 8.7L CBC/BMP Laboratory Tests 03/08/20 05:45 Microbiology Microbiology 03/06/20 Blood Culture - Preliminary, Resulted No Growth after 48 hours. All Specime... 03/06/20 Blood Culture - Preliminary, Resulted No Growth after 48 hours. All Specime... MOHINI SAHNI MD March 08, 2020 16:54
[2020-03-08 22:00] VITALS: BP 114/76
[2020-03-08] MEDS: AMITRIPTYLINE 25 MG TAB PO SCH (22:22)
[2020-03-08] MEDS: traZODone 100 MG TAB PO SCH (22:23)
[2020-03-08] MEDS: ZONISAMIDE 100 MG CAP (ZONEGRAN) PO SCH (22:24)
[2020-03-09] MEDS: ACETAMINOPHEN 650MG ER TAB (TYLENOL ARTHRITIS) PO SCH ×2 (00:03→06:18)
[2020-03-09] MEDS: IPRATROPIUM 0.5MG/ALBUTEROL 2.5MG INH SOL UD 3ML (DUONEB)(J7620) NEB SCH ×3 (02:53→11:12)
[2020-03-09] MEDS: DOXYCYCLINE HYCLATE 100 MG in D5W MINI-BAG PLUS 100 ML IV SCH (04:53)
[2020-03-09 06:00] VITALS: BP 115/71
[2020-03-09] MEDS ORDERED: CEFEPIME HCL 2 GM in D5W MINI-BAG PLUS 50 ML IV SCH (06:17)
[2020-03-09] MEDS: LEVOTHYROXINE 25MCG TABLET (0.025MG) PO SCH (06:18)
[2020-03-09] MEDS: HEPARIN SOD (PORCINE) 5000UNITS/ML VIAL (J1644 PER 1000UNITS) SQ SCH (06:18)
[2020-03-09] MEDS: NORCO, ANEXSIA 5/325MG TABLET (HYDROcodone/ACETAMINOPHEN) PO PRN (06:19)
[2020-03-09 06:31] LABS: HEMATOCRIT 34.2 % (42.0-52.0); HEMOGLOBIN 11.6 g/dl (13.5-17.5); MEAN CORPUSCULAR HEMOGLOBIN 34.5 pg (27.0-33.0); MEAN CORPUSCULAR HGB CONC 33.9 g/dl (32.0-36.5); MEAN CORPUSCULAR VOLUME 101.8 fl (80.0-96.0); PLATELET COUNT, AUTOMATED 166 10^3/uL (150-450); RED BLOOD COUNT 3.36 10^6/uL (4.30-6.10); WHITE BLOOD COUNT 11.9 10^3/uL (4.0-10.0)
[2020-03-09 06:53] LABS: BLOOD UREA NITROGEN 23 MG/DL (7-18); CALCIUM LEVEL 8.4 MG/DL (8.8-10.2); CARBON DIOXIDE LEVEL 29 MEQ/L (21-32); CHLORIDE LEVEL 106 MEQ/L (98-107); GLOMERULAR FILTRATION RATE > 60.0 (>49); GLUCOSE, FASTING 109 MG/DL (70-100); POTASSIUM SERUM 3.8 MEQ/L (3.5-5.1); SODIUM LEVEL 139 MEQ/L (136-145)
[2020-03-09] MEDS: TIOTROPIUM INHALER/CAPSULE (SPIRIVA) INH SCH (07:12)
[2020-03-09 08:09] VITALS: BP 116/71
[2020-03-09] MEDS: PROPRANOLOL 10 MG TAB PO SCH (08:09)
[2020-03-09] MEDS: guaiFENesin ER 600 MG TAB PO SCH (08:09)
[2020-03-09] MEDS: PANTOPRAZOLE 40MG VIAL (C9113 PER 1) IV SCH (08:09)
[2020-03-09] MEDS: BACLOFEN 10 MG TAB PO SCH (08:09)
[2020-03-09] MEDS: busPIRone 10 MG TAB PO SCH (08:09)
[2020-03-09] MEDS ORDERED: predniSONE 5 MG TAB PO SCH (09:00)
--- NOTE | 2020-03-09 10:33 | DS.PDOC ---
Discharge Summary General Date of Admission March 06, 2020 at 16:04 Date of Discharge 03/09/20 Attending Physician: MOHINI SAHNI MD Discharge Summary PROCEDURES PERFORMED DURING STAY: None. ADMITTING DIAGNOSES: 1. COPD exacerbation, atelectasis. DISCHARGE DIAGNOSES: 1. COPD exacerbation, atelectasis. COMPLICATIONS/CHIEF COMPLAINT: Copd Exacerbation. HISTORY OF PRESENT ILLNESS: 64-year-old male with past medical history of end- stage COPD, oxygen/oral steroid dependent, was admitted for COPD exacerbation with possible pneumonia. Patient was treated with empiric antibiotics, CAT scan showed possible right lower lobe infiltrate versus atelectasis. Clinically patient improved with IV steroids and nebulizer treatments, pro-calcitonin was negative, pneumonia is less likely, CAT scan findings, probably atelectasis given location and patient's immobility at home. IV steroids were discontinued and patient was started back on home dose of prednisone 5 mg daily, has remained asymptomatic and at baseline for over 24 hours. Patient is from assisted living at [facility], hemodynamically stable for discharge and outpatient follow-up at this time. HOSPITAL COURSE: As above. DISCHARGE MEDICATIONS: Please see below. ALLERGIES: Please see below. PHYSICAL EXAMINATION: VITAL SIGNS: Please see below. GENERAL: No distress HEENT: Normocephalic, atraumatic, moist mucous membranes NECK: Supple CARDIOVASCULAR EXAMINATION: S1, S2, no murmurs RESPIRATORY EXAMINATION: Diminished, very poor air movement, no rhonchi, no wheezing ABDOMINAL EXAMINATION: Soft, nontender, nondistended, positive bowel sounds EXTREMITIES: Range of motion intact SKIN: No rash NEUROLOGICAL EXAMINATION: Alert and oriented 3, no focal deficits PSYCHIATRIC EXAMINATION: Calm and cooperative LABORATORY DATA: Please see below. IMAGING: CT chest with right lower lobe atelectasis versus infiltrate PROGNOSIS: , Guarded ACTIVITY: As tolerated. DIET: Cardiac DISCHARGE PLAN: Follow with pulmonary and PCP in 1-2 weeks DISPOSITION: Assisted living at [facility]. DISCHARGE INSTRUCTIONS: 1. As above. DISCHARGE CONDITION: Stable. TIME SPENT ON DISCHARGE: Greater than 32 minutes. Vital Signs/I&Os Vital Signs Date Time Temp Pulse Resp B/P (MAP) Pulse Ox O2 Delivery O2 Flow Rate FiO2 03/09/20 09:00 4.0 03/09/20 08:09 72 116/71 03/09/20 06:49 18 Nasal Cannula 03/09/20 06:00 99.3 98 I&O- Last 24 Hours up to 6 AM 03/09/20 06:00 Intake Total 1670 ml Output Total 0 ml Balance 1670 ml Laboratory Data Labs 24H Laboratory Tests 2 03/09/20 06:05: Nucleated Red Blood Cells % (auto) 0.0, Anion Gap 4L, Glomerular Filtration Rate > 60.0, Calcium Level 8.4L CBC/BMP Laboratory Tests 03/09/20 06:05 Microbiology Microbiology 03/06/20 Blood Culture - Preliminary, Resulted No Growth after 48 hours. All Specime... 03/06/20 Blood Culture - Preliminary, Resulted No Growth after 48 hours. All Specime... Discharge Medications Scheduled Acetaminophen (Acetaminophen 8 Hour) 650 Mg Tablet.er, 650 MG PO Q6H, (Reported) 0000, 0600, 1200, 1800 Amitriptyline HCl (Amitriptyline HCl) 75 Mg Tablet, 75 MG PO QHS, (Reported) Baclofen (Baclofen) 10 Mg Tablet, 10 MG PO TID, (Reported) 0900, 1300, 2000 Buspirone HCl (Buspirone HCl) 30 Mg Tablet, 30 MG PO TID, (Reported) 0900, 1300, 2000 Calcium Carbonate/Vitamin D3 (Calcium 500-Vit D3 200 Tablet) 1 Each Tablet, 1 TAB PO BID, (Reported) Cetirizine HCl (Cetirizine HCl) 10 Mg Tablet, 10 MG PO QHS, (Reported) Docusate Sodium (Docusate Sodium) 100 Mg Capsule, 100 MG PO DAILY, (Reported) Ergocalciferol (Vitamin D2) (Vitamin D2) 50,000 Units Cap, 50,000 UNITS PO QWEEK, (Reported) MONDAY Fluticasone Propionate (Fluticasone Propionate) 15.8 Ml [place].susp, 1 SPRAY NA DAILY, (Reported) MAY SELF ADMINISTER AND KEEP AT BEDSIDE Furosemide (Furosemide) 80 Mg Tablet, 40 MG PO DAILY, (Reported) Gabapentin (Gabapentin) 400 Mg Capsule, 400 MG PO TID, (Reported) 0600, 1200, 1800 Guaifenesin (Mucinex) 600 Mg Tab.er.12h, 600 MG PO BID, (Reported) Levothyroxine Sodium (Levoxyl) 25 Mcg Tablet, 25 MCG PO DAILY, (Reported) Mometasone/Formoterol (Dulera 200 Mcg/5 Mcg Inhaler) 13 Gm Hfa.aer.ad, 2 PUFFS INH BID, (Reported) Naloxegol Oxalate (Movantik) 12.5 Mg Tablet, 12.5 MG PO DAILY, (Reported) [place]-3 Fatty Acids/Fish Oil ([place] 3 Fish Oil Softgel) 1 Cap Cap, 1 CAP PO DAILY, (Reported) Pantoprazole Sodium (Protonix) 40 Mg Tab, 40 MG PO DAILY, (Reported) Polyethylene Glycol 3350 (Miralax) 17 Gm Powd.pack, 17 GM PO BID, (Reported) 0800, 1700; RESIDENT WILL PLACE MEDICATION IN HIS OWN OJ AT BEDSIDE AND SELF- ADMINISTER Polyvinyl Alcohol (Artificial Tears) 15 Ml Drops, 1 DROP OD QID, (Reported) Prednisone (Prednisone) 5 Mg Tablet, 5 MG PO DAILY, (Reported) Propranolol HCl (Propranolol HCl) 10 Mg Tablet, 10 MG PO BID, (Reported) Propylene Glycol (Systane Complete) 10 Ml Drops, 1 DROP OU Q4H, (Reported) 0000, 0400, 0800, 1200, 1600, 2000 Sennosides/Docusate Sodium (Senna-S Tablet) 1 Each Tablet, 1 TAB PO DAILY, (Reported) Tiotropium [place] (Spiriva) 18 Mcg Cap, 18 MCG INH QHS, (Reported) Trazodone HCl (Trazodone HCl) 100 Mg Tablet, 100 MG PO QHS, (Reported) Zonisamide (Zonisamide) 100 Mg Capsule, 200 MG PO QHS, (Reported) Scheduled PRN Albuterol Sulf (Albuterol Sulfate) 2.5 Mg/3 Ml Nebu, 3 ML INH Q4H PRN for SHORTNESS OF BREATH, (Reported) Albuterol Sulfate (Proair Hfa) 8.5 Gm Hfa.aer.ad, 2 PUFF INH Q4H PRN for SHORTNESS OF BREATH, (Reported) Hydrocodone/Acetaminophen ([place] 5-325 Tablet) 1 Each Tablet, 2 TAB PO Q6H PRN for PAIN, (Reported) Magnesium Hydroxide (Milk of Magnesia) 400 Mg/5 Ml [place].susp, 30 ML PO DAILY PRN for CONSTIPATION, (Reported) Oxymetazoline HCl (Afrin) 15 Ml [place], 2 SPRAY NA Q12H PRN for NASAL DRYNESS, (Reported) PLACE AT BEDSIDE FOR PATIENT TO USE NEEDED Rizatriptan Benzoate (Maxalt Survey Engineer) 10 Mg Tab.rapdis, 5 MG PO BID PRN for MIGRAINE, (Reported) Sodium Chloride ([place]) 104 Ml [place], 2 SPRAY NA QID PRN for NASAL DRYNESS, (Reported) Allergies Coded Allergies: ENVIROMENTAL (Verified Allergy, Unknown, "MOST PAIN MEDS", 03/21/19) Penicillins (Verified Allergy, Unknown, 03/21/19) MOHINI SAHNI MD March 09, 2020 10:33
== END 2020-03-09 12:00 | DRG 140 ==
LOC: M ED 14:09 → M ED INP 16:04 → M MSPAV 17:28
PROVIDERS: ADMIT Internal Medicine; ATTEND Internal Medicine
DX: J44.0 Chronic obstructive pulmonary disease with (acute) lower respiratory infection (principal); J18.9 Pneumonia, unspecified organism; Z99.81 Dependence on supplemental oxygen; R00.0 Tachycardia, unspecified; G43.909 Migraine, unspecified, not intractable, without status migrainosus; J98.11 Atelectasis; R91.8 Other nonspecific abnormal finding of lung field; M81.0 Age-related osteoporosis without current pathological fracture; R60.0 Localized edema; F41.9 Anxiety disorder, unspecified; F32.9 Major depressive disorder, single episode, unspecified; E03.9 Hypothyroidism, unspecified; Z79.52 Long term (current) use of systemic steroids; Z88.0 Allergy status to penicillin; J32.9 Chronic sinusitis, unspecified; Z87.891 Personal history of nicotine dependence; J44.1 Chronic obstructive pulmonary disease with (acute) exacerbation

== ENCOUNTER → 2020-06-16 | Outpatient (REF) | payer MEDICAID ==
[~2020-06-16] MED LIST changes: -ALL10TAB29 PO; +CETI-24 PO; +MAXA10TA15 SL; +MILKSUS10 PO; +NALO12.5 PO; +POLYOPD OD
== END ==
LOC: M SFHCPLAZ 13:56
PROVIDERS: ATTEND Physician Assistant Medical
DX: E03.9 Hypothyroidism, unspecified (principal)

== ENCOUNTER → 2020-10-16 | Outpatient (REF) | payer MEDICAID | PROVIDERS: ATTEND Internal Medicine | DX: Z20.828 Contact with and (suspected) exposure to other viral communicable diseases (principal) ==

== ENCOUNTER → 2020-10-21 | Outpatient (REF) | payer MEDICAID | PROVIDERS: ATTEND Internal Medicine | DX: Z20.828 Contact with and (suspected) exposure to other viral communicable diseases (principal) ==

== ENCOUNTER → 2020-10-26 | Outpatient (REF) | payer MEDICAID | PROVIDERS: ATTEND Internal Medicine | DX: Z20.828 Contact with and (suspected) exposure to other viral communicable diseases (principal) ==

== ENCOUNTER → 2020-11-02 | Outpatient (REF) | payer MEDICAID | PROVIDERS: ATTEND Internal Medicine | DX: Z20.828 Contact with and (suspected) exposure to other viral communicable diseases (principal) ==

== ENCOUNTER → 2020-11-09 | Outpatient (REF) | payer MEDICAID | PROVIDERS: ATTEND Internal Medicine | DX: Z11.52 Encounter for screening for COVID-19 (principal) ==

== ENCOUNTER → 2020-11-16 | Outpatient (REF) | payer MEDICARE, MEDICAID | PROVIDERS: ATTEND Internal Medicine | DX: Z20.822 Contact with and (suspected) exposure to COVID-19 (principal) ==

== ENCOUNTER → 2020-11-30 | Outpatient (REF) | payer MEDICAID, MEDICARE | PROVIDERS: ATTEND Internal Medicine | DX: Z20.822 Contact with and (suspected) exposure to COVID-19 (principal) ==

== ENCOUNTER → 2020-11-30 | Outpatient (REF) | payer MEDICARE, MEDICAID | PROVIDERS: ATTEND Internal Medicine | DX: Z20.822 Contact with and (suspected) exposure to COVID-19 (principal) ==

== ENCOUNTER → 2020-12-07 | Outpatient (REF) | payer MEDICARE, MEDICAID | PROVIDERS: ATTEND Internal Medicine | DX: Z20.822 Contact with and (suspected) exposure to COVID-19 (principal) ==

== ENCOUNTER → 2020-12-14 | Outpatient (REF) | payer MEDICARE, MEDICAID | PROVIDERS: ATTEND Internal Medicine | DX: Z20.822 Contact with and (suspected) exposure to COVID-19 (principal) ==

== ENCOUNTER → 2020-12-21 | Outpatient (REF) | payer MEDICARE, MEDICAID | PROVIDERS: ATTEND Internal Medicine | DX: Z20.822 Contact with and (suspected) exposure to COVID-19 (principal) ==

== ENCOUNTER → 2021-03-30 | Outpatient (REF) | payer MEDICARE, MEDICAID ==
[~2021-03-30] MED LIST changes: +GABA-283 PO; -GABA-845 PO
[2021-03-30 17:41] LABS: BASO % 0.6 % (0.0-1.0); EOS # 0.4 10^3/uL (0.0-0.5); EOS % 5.9 % (0.0-3.0); HEMATOCRIT 38.5 % (42.0-52.0); HEMOGLOBIN 12.1 g/dl (13.5-17.5); LYMPH # 1.8 10^3/uL (1.5-5.0); LYMPH % 27.2 % (24.0-44.0); MEAN CORPUSCULAR HEMOGLOBIN 33.1 pg (27.0-33.0); MEAN CORPUSCULAR HGB CONC 31.4 g/dl (32.0-36.5); MEAN CORPUSCULAR VOLUME 105.2 fl (80.0-96.0); MONO # 0.7 10^3/uL (0.0-0.8); MONO % 10.1 % (2.0-8.0); NEUTROPHILS # 3.8 10^3/uL (1.5-8.5); NEUTROPHILS % 56.1 % (36.0-66.0); PLATELET COUNT, AUTOMATED 123 10^3/uL (150-450); RED BLOOD COUNT 3.66 10^6/uL (4.30-6.10); WHITE BLOOD COUNT 6.7 10^3/uL (4.0-10.0)
[2021-03-30 18:15] LABS: ALBUMIN 3.8 GM/DL (3.2-5.2); ALT/SGPT 21 U/L (12-78); BILIRUBIN,TOTAL 0.3 MG/DL (0.2-1.0); BLOOD UREA NITROGEN 21 MG/DL (7-18); CALCIUM LEVEL 9.4 MG/DL (8.8-10.2); CARBON DIOXIDE LEVEL 31 MEQ/L (21-32); CHLORIDE LEVEL 106 MEQ/L (98-107); CREATININE FOR GFR 0.86 MG/DL (0.70-1.30); FREE T4 1.03 NG/DL (0.76-1.46); GLOMERULAR FILTRATION RATE > 60.0 (>49); GLUCOSE, FASTING 111 MG/DL (70-100); PTH INTACT 36.3 PG/ML (18.5-88.0); SODIUM LEVEL 143 MEQ/L (136-145); TOTAL 25(OH) VITAMIN D 109.4 NG/ML (30.0-100.0); TOTAL PROTEIN 6.9 GM/DL (6.4-8.2)
== END ==
LOC: M SFHCPLAZ 15:53
PROVIDERS: ATTEND Physician Assistant Medical
DX: J30.9 Allergic rhinitis, unspecified (principal); E55.9 Vitamin D deficiency, unspecified; D64.9 Anemia, unspecified; Z79.899 Other long term (current) drug therapy

== ENCOUNTER → 2021-04-20 | Outpatient (CLI) | payer MEDICARE, MEDICAID ==
--- NOTE | 2021-04-20 14:02 | REP ---
INDICATION: LUNG SCREENING. COMPARISON: Multiple the latest 03/06/2020 a standard noncontrast enhanced chest CT TECHNIQUE: Axial noncontrast images from the thoracic inlet to the upper abdomen using low-dose lung screening technique (LDCT). As per the protocol only lung window images were sent to the read station for interpretation. FINDINGS: Once again, large and in fact huge pleural blebs are seen in the lungs status quo. Once again, these blebs are causing compressive subsegmental atelectatic changes in the remaining pulmonary parenchyma status quo. No new abnormal opacities have developed. The previously present patchy opacity in the right lower lobe has resolved. Grossly, the mediastinum and pulmonary jeses are unchanged. Grossly, the imaged upper abdomen and imaged osseous structures are unchanged. No pleural or pericardial effusions have developed. IMPRESSION: Markedly abnormal lung ford as described above. The appears stable with the exception of resolution of the previously present right lower lobe opacity. Lung rads category 2 S. <Electronically signed by Hank Roland > 04/20/21 [id number]
== END ==
LOC: M RAD 12:50
PROVIDERS: ATTEND Internal Medicine Pulmonary Disease
DX: Z87.891 Personal history of nicotine dependence (principal)

== ENCOUNTER → 2021-05-20 | Outpatient (REF) | payer MEDICARE, MEDICAID ==
[~2021-05-20] MED LIST changes: +ERGO500029 PO
[2021-05-20 11:17] LABS: BASO # 0.1 10^3/uL (0.0-0.2); BASO % 0.8 % (0.0-1.0); EOS # 0.4 10^3/uL (0.0-0.5); HEMATOCRIT 35.7 % (42.0-52.0); HEMOGLOBIN 11.4 g/dl (13.5-17.5); LYMPH # 1.8 10^3/uL (1.5-5.0); LYMPH % 29.5 % (24.0-44.0); MEAN CORPUSCULAR HEMOGLOBIN 33.8 pg (27.0-33.0); MEAN CORPUSCULAR HGB CONC 31.9 g/dl (32.0-36.5); MEAN CORPUSCULAR VOLUME 105.9 fl (80.0-96.0); MONO # 0.7 10^3/uL (0.0-0.8); MONO % 12.4 % (2.0-8.0); NEUTROPHILS % 50.1 % (36.0-66.0); PLATELET COUNT, AUTOMATED 149 10^3/uL (150-450); RED BLOOD COUNT 3.37 10^6/uL (4.30-6.10)
== END ==
PROVIDERS: ATTEND Physician Assistant Medical
DX: D64.9 Anemia, unspecified (principal)

== ENCOUNTER → 2021-06-14 | Outpatient (REF) | payer MEDICARE, MEDICAID ==
[2021-06-14 12:37] LABS: BASO % 0.6 % (0.0-1.0); EOS # 0.5 10^3/uL (0.0-0.5); EOS % 7.6 % (0.0-3.0); HEMATOCRIT 36.9 % (42.0-52.0); HEMOGLOBIN 11.7 g/dl (13.5-17.5); LYMPH # 1.4 10^3/uL (1.5-5.0); LYMPH % 22.9 % (24.0-44.0); MEAN CORPUSCULAR HEMOGLOBIN 33.1 pg (27.0-33.0); MEAN CORPUSCULAR HGB CONC 31.7 g/dl (32.0-36.5); MEAN CORPUSCULAR VOLUME 104.5 fl (80.0-96.0); MONO # 0.9 10^3/uL (0.0-0.8); MONO % 13.5 % (2.0-8.0); NEUTROPHILS # 3.5 10^3/uL (1.5-8.5); NEUTROPHILS % 55.2 % (36.0-66.0); PLATELET COUNT, AUTOMATED 146 10^3/uL (150-450); RED BLOOD COUNT 3.53 10^6/uL (4.30-6.10); WHITE BLOOD COUNT 6.3 10^3/uL (4.0-10.0)
== END ==
PROVIDERS: ATTEND Physician Assistant Medical
DX: D64.9 Anemia, unspecified (principal); D75.89 Other specified diseases of blood and blood-forming organs

== ENCOUNTER → 2021-06-22 | Outpatient (REF) | payer MEDICARE, MEDICAID | LOC: M SFHCPLAZ 17:01 | PROVIDERS: ATTEND Physician Assistant Medical | DX: J06.9 Acute upper respiratory infection, unspecified (principal) ==

== ENCOUNTER 2021-07-10 14:43 | Observation (INO) | payer MEDICARE, MEDICAID ==
[~2021-07-10] VITALS: Ht 177.8 cm; Wt 70.3 kg
[2021-07-10] MEDS ORDERED: methylPREDNISolone 125MG 2ML VIAL IV ONE (15:15)
[2021-07-10] MEDS: COMBIVENT RESPIMAT 100-20MCG INHALER 4GM INH SCH ×3 (15:23→16:14)
--- NOTE | 2021-07-10 15:32 | REP ---
INDICATION: DYSPNEA/COUGH. COMPARISON: Portable chest, 03/06/2020 TECHNIQUE: Upright AP portable chest image was obtained. FINDINGS: There is apical pleuroparenchymal scarring bilaterally. There are large emphysematous bullae in the upper lobe of the right lung and in the upper lobe of the left lung. There is compressive atelectasis of the adjacent portions of both lungs. The heart size is normal. IMPRESSION: 1. Severe upper lobe predominant bullous emphysema. 2. No significant change. <Electronically signed by Isaiah Wall > 07/10/21 [id number]
[2021-07-10 15:38] LABS: BASO % 0.3 % (0.0-1.0); EOS # 0.2 10^3/uL (0.0-0.5); EOS % 1.7 % (0.0-3.0); HEMATOCRIT 35.5 % (42.0-52.0); HEMOGLOBIN 11.7 g/dl (13.5-17.5); LYMPH # 1.6 10^3/uL (1.5-5.0); LYMPH % 17.4 % (24.0-44.0); MEAN CORPUSCULAR HEMOGLOBIN 33.6 pg (27.0-33.0); MONO % 11.1 % (2.0-8.0); NEUTROPHILS # 6.1 10^3/uL (1.5-8.5); NEUTROPHILS % 69.2 % (36.0-66.0); PLATELET COUNT, AUTOMATED 211 10^3/uL (150-450); RED BLOOD COUNT 3.48 10^6/uL (4.30-6.10); WHITE BLOOD COUNT 8.9 10^3/uL (4.0-10.0)
[2021-07-10 16:07] LABS: ALT/SGPT 21 U/L (12-78); BILIRUBIN,DIRECT 0.1 MG/DL (0.0-0.2); BILIRUBIN,TOTAL 0.4 MG/DL (0.2-1.0); BLOOD UREA NITROGEN 14 MG/DL (7-18); CALCIUM LEVEL 8.2 MG/DL (8.8-10.2); CARBON DIOXIDE LEVEL 26 MEQ/L (21-32); CHLORIDE LEVEL 111 MEQ/L (98-107); CK-MB VALUE MASS 2.3 NG/ML (<3.6); CPK CREATINE PHOSPHOKINASE 52 U/L (39-308); CREATININE FOR GFR 0.73 MG/DL (0.70-1.30); GLOMERULAR FILTRATION RATE > 60.0 (>49); GLUCOSE, FASTING 108 MG/DL (70-100); MAGNESIUM LEVEL 2.3 MG/DL (1.8-2.4); MB/CK RELATIVE INDEX 4.42 (< OR =4); NT-PRO BNP 188 PG/ML (<125); SODIUM LEVEL 141 MEQ/L (136-145); THYROID STIMULATING HORMONE 0.678 uIU/ML (0.358-3.740); THYROXINE (T4) 9.5 UG/DL (4.5-12.0); TOTAL PROTEIN 6.5 GM/DL (6.4-8.2); TROPONIN I < 0.02 NG/ML (< 0.10)
[2021-07-10] MEDS ORDERED: ISOVUE-370 76% 100ML VIAL As Ordered ONE (16:33)
--- NOTE | 2021-07-10 18:15 | REP ---
INDICATION: sob. COMPARISON: CT chest without IV contrast, 04/20/2021 TECHNIQUE: Imaging protocol: CT angiography of the chest was performed following the administration of IV contrast. Contiguous 3 mm thick axial projection images were obtained through the chest. 2D sagittal and coronal reconstructions were performed. Radiation optimization: All CT scans at this facility use at least one of these dose optimization techniques: automated exposure control; mA and/or kV adjustment per patient size (includes targeted exams where dose is matched to clinical indication); or iterative reconstruction. Contrast: 75 cc of Isovue 370 IV. FINDINGS: Lower neck: The thyroid gland is normal. There is no supraclavicular lymphadenopathy. Mediastinum: No abnormal masses or lymphadenopathy. Heart/thoracic aorta/pulmonary arterial tree: The heart size is normal. There is no pericardial effusion. There is calcific vascular disease of the thoracic aorta and coronary arteries. There are no filling defects within the pulmonary arterial tree. Upper abdomen: There is calcific vascular disease of the abdominal aorta. There is gravity dependent sludge or tiny stones in the gallbladder. Thoracic esophagus: Normal. Chest wall and axilla: The soft tissues of the chest wall are unremarkable. There is no axillary lymphadenopathy. There is osteopenia of the visualized cervicothoracic and lumbar spine and there are mild to moderate osteoporotic compression fractures, T4 through T10 and T12 through L4. There is no significant change since the CT thoracic spine exam of 01/22/2020. Lung parenchyma: There is severe bullous emphysema with large bullae in both lung apices. There is an apical pleural-parenchymal scar on the left. Just medial to the scar there is a fluid-filled bulla, and medial to that, a larger bulla with an air-fluid level (best seen image 14). There is an additional fluid-filled bolus in the upper lobe of the left lung, medially (best demonstrated on image 31). An additional upper lobe bolus demonstrated an air-fluid level is present (best seen on image 19). There are no air-fluid level seen in the right lung. There is a partially calcified pleuroparenchymal scar in the right lung apex. There are surgical clips in the right lung apex consistent with prior bullectomy. More normal appearing lung tissue is noted in the basilar segments of the lower lobe of the right lung, the middle lobe the right lung, and the lingula of the upper lobe of the left lung. There are no pleural effusions. IMPRESSION: 1. There is severe bolus emphysema. 2. Since the prior chest CT exam of 04/20/2021, there has been development of fluid-filled bullae and bullae demonstrating air-fluid levels in the upper lobe of the left lung. This may be indicative of superimposed infection. 3. Other findings as noted. <Electronically signed by Isaiah Wall > 07/10/21 [id number]
[2021-07-10] MEDS ORDERED: LevoFLOXacin IV 750 MG in IV 1 EA IV ONE (18:40)
[2021-07-10] MEDS ORDERED: ACETAMINOPHEN TAB 650MG DOSE (2X325MG) PO PRN (19:35)
[2021-07-10] MEDS ORDERED: BREO1INH INH (19:44)
[2021-07-10] MEDS ORDERED: NALO25TA PO (19:44)
[2021-07-10] MEDS ORDERED: CEPALOZ8 MT (19:44)
[2021-07-10] MEDS ORDERED: KP F1200 PO (19:44)
[2021-07-10] MEDS ORDERED: VITA500T17 PO (19:44)
[2021-07-10] MEDS ORDERED: RIZA5TAB2 PO (19:44)
[2021-07-10] MEDS ORDERED: DULO30CA9 PO (19:44)
[2021-07-10] MEDS ORDERED: GABA600T4 PO (19:44)
[2021-07-10] MEDS ORDERED: TUDO1AER3 INH (19:44)
[2021-07-10] MEDS ORDERED: HOME MED LIST COMPLETE! XX SCH (19:45)
[2021-07-10] MEDS ORDERED: OXYMETAZOLINE 0.05% NASAL SPRAY (AFRIN) PRN (20:30)
[2021-07-10] MEDS ORDERED: RIZATRIPTAN BENZOATE 10 MG TAB PO PRN (20:30)
[2021-07-10] MEDS ORDERED: SODIUM CHLORIDE NASAL 0.65% SPRAY BTL (OCEAN) PRN (20:30)
[2021-07-10] MEDS ORDERED: MOM 30ML SUSPENSION UDC PO PRN (20:30)
[2021-07-10] MEDS ORDERED: CEPACOL LOZENGE MT PRN (20:30)
--- NOTE | 2021-07-10 20:55 | HPEPDOC ---
General Date of Admission July 10, 2021 Date of Service: Jul 10, 2021 Chief Complaint The patient is a 65-year-old male admitted with a reason for visit of COUGH. Source: Patient History of Present Illness Mr. Toro is a 65-year-old male from [facility] who has COPD stage IV and chronically on 3 L of oxygen who presents with worsening fever/chills, shortness of breath, and cough. Patient tells me that he has had fever and chills over the past few months but it has been worse this past week. He also feels that his shortness of breath and cough is worse. Cough is productive with yellow to green sputum. In addition his throat hurts. He denies any sick contacts or recent travel. He is a resident of [facility]. He came into the ED for evaluation. While here vital signs have been stable. No fever. He is still on 3 L of oxygen. There is no leukocytosis. The ED provider told me prior to receiving steroids and breathing treatments, patient had wheezing. CT angio chest demonstrates severe bullous emphysema and fluid-filled bullae and bullae demonstrating air-fluid levels in the upper lobe of the left lung. I touch base with pulmonary, Dr. Mora. He looked at the imaging and he does have severe bullous of eczema. Only one bullae has some fluid in it. There is nothing we need to do for it. Patient will be admitted for COPD exacerbation. Home Medications Scheduled Acetaminophen (Acetaminophen 8 Hour) 650 Mg Tablet.er, 650 MG PO Q6H, (Reported) 0000, 0600, 1200, 1800 Aclidinium [place] (Tudorza Pressair) 400 Mcg Aer.pow.ba, 1 PUFF INH BID, (Reported) Amitriptyline HCl (Amitriptyline HCl) 75 Mg Tablet, 75 MG PO QHS, (Reported) Baclofen (Baclofen) 10 Mg Tablet, 10 MG PO TID, (Reported) 0900, 1300, 2000 Buspirone HCl (Buspirone HCl) 30 Mg Tablet, 30 MG PO TID, (Reported) 0900, 1300, 2000 Calcium Carbonate/Vitamin D3 (Calcium 500-Vit D3 200 Tablet) 1 Each Tablet, 1 TAB PO BID, (Reported) Cetirizine HCl (Cetirizine HCl) 10 Mg Tablet, 10 MG PO QHS, (Reported) Cyanocobalamin (Vitamin B-12) (Vitamin B-12) 500 Mcg Tablet, 500 MCG PO DAILY, (Reported) Docusate Sodium (Docusate Sodium) 100 Mg Capsule, 100 MG PO DAILY, (Reported) Duloxetine Hcl (Duloxetine HCl) 30 Mg Capsule.dr, 30 MG PO DAILY, (Reported) Ergocalciferol (Vitamin D2) (Vitamin D2) 50,000 Units Cap, 50,000 UNITS PO QWEEK, (Reported) MONDAY Fish Oil/Dha/Epa (Fish Oil 1,200 mg Fish Oil) 1 Each Capsule, 1 CAP PO DAILY, (Reported) Fluticasone Propionate (Fluticasone Propionate) 15.8 Ml [place].susp, 1 SPRAY NA DAILY, (Reported) MAY SELF ADMINISTER AND KEEP AT BEDSIDE Fluticasone/Vilanterol (Breo Ellipta 100-25 Mcg INH) 1 Each Blst.w.dev, 1 PUFF INH DAILY, (Reported) Furosemide (Furosemide) 80 Mg Tablet, 40 MG PO DAILY, (Reported) Gabapentin (Gabapentin) 600 Mg Tablet, 600 MG PO TID, (Reported) 0600, 1200, 1800 Guaifenesin (Mucinex) 600 Mg Tab.er.12h, 600 MG PO BID, (Reported) Levothyroxine Sodium (Levoxyl) 25 Mcg Tablet, 25 MCG PO DAILY, (Reported) Mometasone/Formoterol (Dulera 200 Mcg/5 Mcg Inhaler) 13 Gm Hfa.aer.ad, 2 PUFFS INH BID, (Reported) Naloxegol Oxalate (Movantik) 25 Mg Tablet, 25 MG PO DAILY, (Reported) Pantoprazole Sodium (Protonix) 40 Mg Tab, 40 MG PO DAILY, (Reported) Polyethylene Glycol 3350 (Miralax) 17 Gm Powd.pack, 17 GM PO BID, (Reported) 0800, 1700; RESIDENT WILL PLACE MEDICATION IN HIS OWN OJ AT BEDSIDE AND SELF- ADMINISTER Polyvinyl Alcohol (Artificial Tears) 15 Ml Drops, 1 DROP OD QID, (Reported) 0600, 1000, 1400, 2000 Propylene Glycol (Systane Complete) 10 Ml Drops, 1 DROP OU Q4H, (Reported) 0000, 0400, 0800, 1200, 1600, 2000 Sennosides/Docusate Sodium (Senna-S Tablet) 1 Each Tablet, 1 TAB PO DAILY, (Reported) Zonisamide (Zonisamide) 100 Mg Capsule, 200 MG PO QHS, (Reported) Scheduled PRN Albuterol Sulf (Albuterol Sulfate) 2.5 Mg/3 Ml Nebu, 3 ML INH Q4H PRN for SHORTNESS OF BREATH, (Reported) Albuterol Sulfate (Proair Hfa) 8.5 Gm Hfa.aer.ad, 2 PUFF INH Q4H PRN for SHORTNESS OF BREATH, (Reported) Benzocaine/Menthol (Cepacol Sore Throat Lozenge) 1 Each Lozenge, 1 NELLY MT Q6H PRN for SORE THROAT, (Reported) Magnesium Hydroxide (Milk of Magnesia) 400 Mg/5 Ml Oral.susp, 30 ML PO DAILY PRN for CONSTIPATION, (Reported) Oxymetazoline HCl (Afrin) 15 Ml [place], 2 SPRAY NA Q12H PRN for NASAL DRYNESS, (Reported) PLACE AT BEDSIDE FOR PATIENT TO USE NEEDED Rizatriptan Benzoate (Rizatriptan) 5 Mg Tablet, 5 MG PO DAILY PRN for MIGRAINE, (Reported) Sodium Chloride ([place]) 104 Ml [place], 2 SPRAY NA QID PRN for NASAL DRYNESS, (Reported) Allergies Coded Allergies: ENVIRONMENTAL (Verified Allergy, Unknown, "MOST PAIN MEDS", 03/21/19) Penicillins (Verified Allergy, Unknown, 03/21/19) Past Medical History Medical History 1. COPD Gold stage IV 2. DDD lumbar 3. GERD 4. Anxiety 5. Chronic constipation 6. Hypothyroidism Surgical History 1. Left venous malformation removed Family History Father: History of COPD Mother: History of multiple myeloma Social History * Smoker: former Smoker Alcohol: Denies Drugs: denies A-FIB/CHADSVASC A-FIB History Current/History of A-Fib/PAF?: No Review of Systems Constitutional: Reports: Chills, Fever Eyes: Reports: Other (Reports having poor vision) ENT: Reports: Sore Throat Skin: Reports: Rash (Reports having a sacral sore) Pulmonary: Reports: Dyspnea, Cough (Sometimes productive with yellow-green phlegm) Cardiovascular: Denies: Chest Pain Gastrointestinal: Reports: Diarrhea (3-4 times of watery diarrhea); Denies: Nausea, Abdominal Pain Genitourinary: Denies: Dysuria Hematologic: Denies: Bruising Neurological: Reports: Other Symptoms (Neuropathy of toes bilateral) Psych: Reports: Mood Normal Physical Examination General Exam: Positive: Alert, Cooperative Eye Exam: Positive: EOMI; Negative: Sclera icteric ENT Exam: Positive: Atraumatic Neck Exam: Positive: Supple Chest Exam: Positive: Diminished Heart Exam: Positive: Rate Normal, Regular Rhythm Abdomen Exam: Positive: Normal bowel sounds, Soft; Negative: Tenderness Extremity Exam: Negative: Edema Neuro Exam: Positive: Normal Speech, Cranial Nerves 3-12 NL Psych Exam: Positive: Mental status NL, Mood NL Vital Signs Vital Signs Date Time Temp Pulse Resp B/P (MAP) Pulse Ox O2 Delivery O2 Flow Rate FiO2 07/10/21 18:30 99.1 75 20 109/62 (78) 97 07/10/21 15:11 Nasal Cannula 3.0 Laboratory Data Labs 24H Laboratory Tests 2 07/10/21 15:25: Immature Granulocyte % (Auto) 0.3, Neutrophils (%) (Auto) 69.2H, Lymphocytes (%) (Auto) 17.4L, Monocytes (%) (Auto) 11.1H, Eosinophils (%) (Auto) 1.7, Basophils (%) (Auto) 0.3, Neutrophils # (Auto) 6.1, Lymphocytes # (Auto) 1.6, Monocytes # (Auto) 1.0H, Eosinophils # (Auto) 0.2, Basophils # (Auto) 0.0, Nucleated Red Blood Cells % (auto) 0.0, Anion Gap 4L, Glomerular Filtration Rate > 60.0, Lactic Acid Level 1.0, Calcium Level 8.2L, Magnesium Level 2.3, Total Bilirubin 0.4, Direct Bilirubin 0.1, Aspartate Amino Transf (AST/SGOT) 11, Alanine Aminotransferase (ALT/SGPT) 21, Alkaline Phosphatase 86, Total Creatine Kinase 52, Creatine Kinase MB 2.3, Creatine Kinase MB Relative Index 4.42H, Troponin I < 0.02, EV-Enk-S-Type Natriuretic Peptide 188H, Total Protein 6.5, Albumin 3.0L, Albumin/Globulin Ratio 0.9, Thyroid Stimulating Hormone (TSH) 0.678, Thyroxine (T4) 9.5 07/10/21 15:34: POC pH (Misc Panel) 7.347L, POC Base Excess (Misc Panel) -3.0L, POC Saturated Percent O2 (Misc) 97, POC pO2 (Misc Panel) 95.0, POC pCO2 (Misc Panel) 40.7, POC HCO3 (Misc Panel) 22.3, POC Total CO2 (Misc Panel) 24.0 CBC/BMP Laboratory Tests 07/10/21 15:25 Microbiology Microbiology 07/10/21 Blood Culture, Received Pending 07/10/21 Blood Culture, Received Pending 07/10/21 Respiratory Virus Panel (PCR) ([facility]) - Final, Complete Assessment/Plan Mr. Toro is a 65-year-old male from [facility] who has COPD stage IV and chronically on 3 L of oxygen who presents with worsening fever/chills, shortness of breath, and cough. Patient was admitted for COPD exacerbation. Will give IV steroids, IV antibiotics, breathing treatments scheduled and as needed. Plan / VTE VTE Prophylaxis Ordered?: Yes Plan Plan 1. COPD exacerbation IV steroids IV antibiotics Breathing treatments scheduled and as needed Advair 2. Allergies Continue cetirizine and Flonase 3. Constipation Patient is on Colace and Senokot-S Holding naloxegol and MiraLAX Patient has a history of constipation, but tells me his diarrhea is chronic Patient's PCP may want to adjust bowel regimen 4. Anxiety/depression Continue to Loxitane, amitriptyline, and buspirone 5. GERD Continue pantoprazole 6. Hypothyroidism Continue levothyroxine 7. Chronic pain Continue gabapentin and baclofen 8. DVT prophylaxis SCDs and teds Disposition: Pending clinical improvement DANISH BLAKE DO Jul 10, 2021 20:54
[2021-07-10] MEDS ORDERED: POLYVINYL ALCOHOL OPHTH SOLN 15 ML(LIQUITEARS) OD SCH (21:00)
[2021-07-10] MEDS ORDERED: busPIRone 10 MG TAB PO SCH (21:00)
[2021-07-10] MEDS ORDERED: MIRALAX *UNIT DOSE* 17GM PACKET PO SCH (21:00)
[2021-07-10] MEDS: IPRATROPIUM 0.5MG/ALBUTEROL 2.5MG INH SOL UD 3ML (DUONEB) NEB PRN (21:15)
[2021-07-10 22:08] VITALS: BP 115/74
[2021-07-10] MEDS: IPRATROPIUM 0.5MG/ALBUTEROL 2.5MG INH SOL UD 3ML (DUONEB) NEB SCH (23:08)
[2021-07-10] MEDS: POLYVINYL ALCOHOL OPHTH SOLN 15 ML(LIQUITEARS) OU SCH (23:21)
[2021-07-10] MEDS: CALCIUM/VITAMIN D 500 MG TAB PO SCH (23:21)
[2021-07-10] MEDS: AMITRIPTYLINE 25MG TABLET PO SCH (23:22)
[2021-07-10] MEDS: ZONISAMIDE 100 MG CAP (ZONEGRAN) PO SCH (23:22)
[2021-07-10] MEDS: CETIRIZINE (ZyrTEC) 10 MG TAB PO SCH (23:22)
[2021-07-10] MEDS: guaiFENesin ER 600 MG TAB PO SCH (23:22)
[2021-07-10] MEDS: BACLOFEN 10 MG TAB PO SCH (23:22)
[2021-07-10] MEDS: GABAPENTIN 300 MG CAP PO SCH (23:24)
[2021-07-11] MEDS: IPRATROPIUM 0.5MG/ALBUTEROL 2.5MG INH SOL UD 3ML (DUONEB) NEB SCH ×6 (04:00→20:07)
[2021-07-11 06:00] VITALS: BP 106/63
[2021-07-11] MEDS: LEVOTHYROXINE 25MCG TABLET (0.025MG) PO SCH (06:18)
[2021-07-11] MEDS: GABAPENTIN 300 MG CAP PO SCH ×3 (06:18→17:47)
[2021-07-11 06:32] LABS: HEMATOCRIT 35.8 % (42.0-52.0); HEMOGLOBIN 11.8 g/dl (13.5-17.5); MEAN CORPUSCULAR HEMOGLOBIN 33.2 pg (27.0-33.0); MEAN CORPUSCULAR VOLUME 100.8 fl (80.0-96.0); PLATELET COUNT, AUTOMATED 213 10^3/uL (150-450); RED BLOOD COUNT 3.55 10^6/uL (4.30-6.10); WHITE BLOOD COUNT 6.9 10^3/uL (4.0-10.0)
[2021-07-11 06:37] LABS: BLOOD UREA NITROGEN 18 MG/DL (7-18); CALCIUM LEVEL 8.9 MG/DL (8.8-10.2); CARBON DIOXIDE LEVEL 21 MEQ/L (21-32); CHLORIDE LEVEL 110 MEQ/L (98-107); CREATININE FOR GFR 0.74 MG/DL (0.70-1.30); GLOMERULAR FILTRATION RATE > 60.0 (>49); GLUCOSE, FASTING 136 MG/DL (70-100); POTASSIUM SERUM 4.2 MEQ/L (3.5-5.1); SODIUM LEVEL 137 MEQ/L (136-145)
[2021-07-11] MEDS: ADVAIR HFA 230/21MCG INHALER INH SCH ×2 (07:12→20:05)
[2021-07-11] MEDS ORDERED: methylPREDNISolone 40MG 1ML VIAL IV SCH (09:00)
[2021-07-11] MEDS ORDERED: PREVNAR 13 VACCINE SYRINGE IM ONE (09:00)
[2021-07-11] MEDS: POLYVINYL ALCOHOL OPHTH SOLN 15 ML(LIQUITEARS) OU SCH ×4 (09:47→22:09)
[2021-07-11] MEDS: PANTOPRAZOLE 40MG TAB (PROTONIX) PO SCH (09:47)
[2021-07-11] MEDS: FLUTICASONE PROP 0.05% NASAL SPRAY 16 GM (FLONASE) NARES SCH (09:47)
[2021-07-11] MEDS: CYANOCOBALAMIN 500 MCG TAB PO SCH (09:48)
[2021-07-11] MEDS: DULoxetine 30 MG CAP (CYMBALTA) PO SCH (09:48)
[2021-07-11] MEDS: CALCIUM/VITAMIN D 500 MG TAB PO SCH ×2 (09:48→22:07)
[2021-07-11] MEDS: guaiFENesin ER 600 MG TAB PO SCH ×2 (09:48→22:08)
[2021-07-11] MEDS: FUROSEMIDE 40 MG TAB PO SCH (09:49)
[2021-07-11] MEDS: DOCUSATE SODIUM 100MG CAPSULE PO SCH (09:49)
[2021-07-11] MEDS: SENOKOT S TAB PO SCH (09:49)
[2021-07-11] MEDS: BACLOFEN 10 MG TAB PO SCH ×3 (09:49→22:08)
[2021-07-11 14:00] VITALS: BP 112/69
--- NOTE | 2021-07-11 17:26 | IPNPDOC ---
Date Seen The patient was seen on 07/11/21. Progress Note SUBJECTIVE: Patient was seen examined at bedside. Doing well overnight no issues. Shortness of breath has resolved. Patient is currently at baseline with 3 L of oxygen surgery 95%. He has no cough no wheezing no chest pain no palpitations no nausea no vomiting no fevers no chills. OBJECTIVE PHYSICAL EXAMINATION: VITAL SIGNS: please see below General: NAD, comfortable HEENT: PERRLA, EOMI, sclerae clear nasal cannula in place Neck: supple, normal ROM, no JVD Respiratory: Fair inspiratory effort, no wheeze, no rales, no crackles CVS: RRR, normal S1, S2, no murmurs Abdo: soft, no masses, no hepatosplenomegaly, BS+, no rebound tenderness Extremities: no edema, pulses 2+ MSK: no joint deformities, normal ROM Neuro: no focal neuro deficits, moving all 4 extremities, CN2-12 intact. Streng th 5/5 in all 4 extremities. No nystagmus. Psych: calm, cooperative, AAO x 3 LABORATORY DATA, IMAGING STUDIES, MICROBIOLOGY: Please see below. DVT prophylaxis ordered?: Yes Lovenox ASSESSMENT AND PLAN:Mr. Toro is a 65-year-old male from [facility] who has COPD stage IV and chronically on 3 L of oxygen who presents with worsening fever/chills, shortness of breath, and cough. Patient was admitted for COPD exacerbation. Will give IV steroids, IV antibiotics, breathing treatments scheduled and as needed. PROBLEMS: 1. COPD exacerbation Exacerbation has resolved. Patient is no longer wheezing. Will continue on prednisone 40 mg/day. Converted Levaquin to p.o. daily x5 days 2. Allergies Continue cetirizine and Flonase 3. Constipation Patient is on Colace and Senokot-S Holding naloxegol and MiraLAX Patient has a history of constipation, but tells me his diarrhea is chronic Patient's PCP may want to adjust bowel regimen 4. Anxiety/depression Continue to Loxitane, amitriptyline, and buspirone 5. GERD Continue pantoprazole 6. Hypothyroidism Continue levothyroxine 7. Chronic pain Continue gabapentin and baclofen 8. DVT prophylaxis SCDs and teds Disposition: Patient was cleared medically cleared for discharge today however due to the holiday patient will be unable to be discharged until 07/13/2021 VS, I&O, 24H, [place] Vital Signs/I&O Vital Signs Date Time Temp Pulse Resp B/P (MAP) Pulse Ox O2 Delivery O2 Flow Rate FiO2 07/11/21 10:00 3.0 07/11/21 06:00 98.0 97 22 106/63 (77) 95 Nasal Cannula I&O- Last 24 Hours up to 6 AM 07/11/21 06:00 Intake Total 450 ml Output Total 100 ml Balance 350 ml Laboratory Data 24H LABS Laboratory Tests 2 07/10/21 23:54: 07/11/21 05:51: 07/11/21 05:52: Nucleated Red Blood Cells % (auto) 0.3H, Anion Gap 6L, Glomerular Filtration Rate > 60.0, Calcium Level 8.9 CBC/BMP Laboratory Tests 07/11/21 05:52 Microbiology Microbiology 07/10/21 Blood Culture - Preliminary, Resulted No growth after 24 hours . All specim... 07/10/21 Blood Culture - Preliminary, Resulted No growth after 24 hours . All specim... 07/10/21 Respiratory Virus Panel (PCR) ([facility]) - Final, Complete CATHY CHRISTINE MD Jul 11, 2021 17:26
[2021-07-11] MEDS: LevoFLOXacin 750 MG TABLET PO SCH (17:47)
[2021-07-11] MEDS ORDERED: LevoFLOXacin IV 750 MG in IV 1 EA IV SCH (19:00)
[2021-07-11 22:00] VITALS: BP 131/69
[2021-07-11] MEDS: ENOXAPARIN 40MG/0.4ML SYRINGE (J1650 PER 10MG) SC SCH (22:06)
[2021-07-11] MEDS: AMITRIPTYLINE 25MG TABLET PO SCH (22:07)
[2021-07-11] MEDS: CETIRIZINE (ZyrTEC) 10 MG TAB PO SCH (22:08)
[2021-07-11] MEDS: ZONISAMIDE 100 MG CAP (ZONEGRAN) PO SCH (22:08)
[2021-07-12] MEDS: IPRATROPIUM 0.5MG/ALBUTEROL 2.5MG INH SOL UD 3ML (DUONEB) NEB SCH ×7 (04:00→22:33)
[2021-07-12 06:00] VITALS: BP 106/64
[2021-07-12] MEDS: GABAPENTIN 300 MG CAP PO SCH ×3 (06:13→17:39)
[2021-07-12] MEDS: LEVOTHYROXINE 25MCG TABLET (0.025MG) PO SCH (06:13)
[2021-07-12 06:32] LABS: HEMATOCRIT 33.3 % (42.0-52.0); HEMOGLOBIN 10.9 g/dl (13.5-17.5); MEAN CORPUSCULAR HEMOGLOBIN 33.3 pg (27.0-33.0); MEAN CORPUSCULAR HGB CONC 32.7 g/dl (32.0-36.5); MEAN CORPUSCULAR VOLUME 101.8 fl (80.0-96.0); PLATELET COUNT, AUTOMATED 236 10^3/uL (150-450); RED BLOOD COUNT 3.27 10^6/uL (4.30-6.10); WHITE BLOOD COUNT 10.1 10^3/uL (4.0-10.0)
[2021-07-12 06:52] LABS: BLOOD UREA NITROGEN 21 MG/DL (7-18); CALCIUM LEVEL 8.4 MG/DL (8.8-10.2); CARBON DIOXIDE LEVEL 26 MEQ/L (21-32); CHLORIDE LEVEL 107 MEQ/L (98-107); CREATININE FOR GFR 0.79 MG/DL (0.70-1.30); GLOMERULAR FILTRATION RATE > 60.0 (>49); GLUCOSE, FASTING 111 MG/DL (70-100); POTASSIUM SERUM 3.7 MEQ/L (3.5-5.1); SODIUM LEVEL 140 MEQ/L (136-145)
[2021-07-12] MEDS: ADVAIR HFA 230/21MCG INHALER INH SCH ×2 (07:07→20:16)
[2021-07-12] MEDS: FLUTICASONE PROP 0.05% NASAL SPRAY 16 GM (FLONASE) NARES SCH (09:09)
[2021-07-12] MEDS: SENOKOT S TAB PO SCH (09:09)
[2021-07-12] MEDS: POLYVINYL ALCOHOL OPHTH SOLN 15 ML(LIQUITEARS) OU SCH ×4 (09:09→20:46)
[2021-07-12] MEDS: PANTOPRAZOLE 40MG TAB (PROTONIX) PO SCH (09:10)
[2021-07-12] MEDS: DOCUSATE SODIUM 100MG CAPSULE PO SCH (09:10)
[2021-07-12] MEDS: CALCIUM/VITAMIN D 500 MG TAB PO SCH ×2 (09:10→20:46)
[2021-07-12] MEDS: guaiFENesin ER 600 MG TAB PO SCH ×2 (09:10→20:46)
[2021-07-12] MEDS: CYANOCOBALAMIN 500 MCG TAB PO SCH (09:10)
[2021-07-12] MEDS: predniSONE 20 MG TAB PO SCH (09:10)
[2021-07-12] MEDS: BACLOFEN 10 MG TAB PO SCH ×3 (09:10→20:48)
[2021-07-12] MEDS: DULoxetine 30 MG CAP (CYMBALTA) PO SCH (09:10)
[2021-07-12] MEDS: FUROSEMIDE 40 MG TAB PO SCH (09:12)
[2021-07-12 14:00] VITALS: BP 114/69
--- NOTE | 2021-07-12 16:39 | ECGEPIP ---
[facility] - ED Test Date: 2021-07-10 Pat Name: MARRY UNDERWOOD Department: Room: - Gender: Male [employer]: LR : 1955 Requested By: Elías Lee Order Number: [id number] Reading MD: Heather Almendarez Measurements Intervals [place] Rate: 80 P: 81 IN: 138 QRS: 77 QRSD: 84 T: 80 QT: 372 QTc: 429 Interpretive Statements Normal sinus rhythm NSTTW abnormalities baseline artifact may affect interpretation decreased rate 03/06/20 Electronically Signed on 07-12-2021 16:38:52 EDT by Heather Almendarez
[2021-07-12] MEDS: LevoFLOXacin 750 MG TABLET PO SCH (17:39)
[2021-07-12] MEDS: ENOXAPARIN 40MG/0.4ML SYRINGE (J1650 PER 10MG) SC SCH (20:46)
[2021-07-12] MEDS: CETIRIZINE (ZyrTEC) 10 MG TAB PO SCH (20:46)
[2021-07-12] MEDS: AMITRIPTYLINE 25MG TABLET PO SCH (20:46)
[2021-07-12 22:00] VITALS: BP 111/70
[2021-07-12] MEDS: ZONISAMIDE 100 MG CAP (ZONEGRAN) PO SCH (22:22)
[2021-07-12] MEDS ORDERED: PILL CUTTER 1 EACH XX PRN (22:30)
[2021-07-12] MEDS: IPRATROPIUM 0.5MG/ALBUTEROL 2.5MG INH SOL UD 3ML (DUONEB) NEB PRN (22:32)
[2021-07-13] MEDS: IPRATROPIUM 0.5MG/ALBUTEROL 2.5MG INH SOL UD 3ML (DUONEB) NEB SCH ×3 (03:09→11:09)
[2021-07-13] MEDS: GABAPENTIN 300 MG CAP PO SCH ×2 (05:51→12:00)
[2021-07-13] MEDS: LEVOTHYROXINE 25MCG TABLET (0.025MG) PO SCH (05:51)
[2021-07-13 06:00] VITALS: BP 91/63
[2021-07-13 06:15] VITALS: BP 118/82
[2021-07-13 06:42] LABS: HEMATOCRIT 39.6 % (42.0-52.0); MEAN CORPUSCULAR HGB CONC 33.1 g/dl (32.0-36.5); MEAN CORPUSCULAR VOLUME 102.9 fl (80.0-96.0); PLATELET COUNT, AUTOMATED 275 10^3/uL (150-450); RED BLOOD COUNT 3.85 10^6/uL (4.30-6.10); WHITE BLOOD COUNT 10.9 10^3/uL (4.0-10.0)
[2021-07-13 06:44] LABS: HEMOGLOBIN 13.1 g/dl (13.5-17.5)
[2021-07-13 07:03] LABS: BLOOD UREA NITROGEN 20 MG/DL (7-18); CALCIUM LEVEL 9.4 MG/DL (8.8-10.2); CARBON DIOXIDE LEVEL 30 MEQ/L (21-32); CHLORIDE LEVEL 103 MEQ/L (98-107); CREATININE FOR GFR 0.85 MG/DL (0.70-1.30); GLOMERULAR FILTRATION RATE > 60.0 (>49); GLUCOSE, FASTING 111 MG/DL (70-100); POTASSIUM SERUM 3.9 MEQ/L (3.5-5.1); SODIUM LEVEL 138 MEQ/L (136-145)
[2021-07-13] MEDS: ADVAIR HFA 230/21MCG INHALER INH SCH (07:28)
[2021-07-13] MEDS: predniSONE 20 MG TAB PO SCH (08:04)
[2021-07-13] MEDS: CALCIUM/VITAMIN D 500 MG TAB PO SCH (08:04)
[2021-07-13] MEDS: guaiFENesin ER 600 MG TAB PO SCH (08:04)
[2021-07-13] MEDS: DOCUSATE SODIUM 100MG CAPSULE PO SCH (08:05)
[2021-07-13] MEDS: BACLOFEN 10 MG TAB PO SCH (08:05)
[2021-07-13] MEDS: DULoxetine 30 MG CAP (CYMBALTA) PO SCH (08:05)
[2021-07-13] MEDS: PANTOPRAZOLE 40MG TAB (PROTONIX) PO SCH (08:05)
[2021-07-13] MEDS: SENOKOT S TAB PO SCH (08:05)
[2021-07-13] MEDS: CYANOCOBALAMIN 500 MCG TAB PO SCH (08:05)
[2021-07-13] MEDS: FUROSEMIDE 40 MG TAB PO SCH (08:06)
[2021-07-13] MEDS: POLYVINYL ALCOHOL OPHTH SOLN 15 ML(LIQUITEARS) OU SCH (08:07)
[2021-07-13] MEDS: FLUTICASONE PROP 0.05% NASAL SPRAY 16 GM (FLONASE) NARES SCH (08:07)
[2021-07-13] MEDS ORDERED: IPRAINH INH (11:21)
[2021-07-13] MEDS ORDERED: PRED10TA2 PO (11:21)
[2021-07-13] MEDS ORDERED: LEVO750T13 PO (11:21)
--- NOTE | 2021-07-13 19:07 | DS.PDOC ---
Discharge Summary General Date of Admission Jul 10, 2021 at 19:35 Date of Discharge 07/13/21 Discharge Summary PROCEDURES PERFORMED DURING STAY: [None]. ADMITTING DIAGNOSES: COPD exacerbation Allergies Constipation Anxiety/depression GERD Hypothyroidism Chronic pain DISCHARGE DIAGNOSES: COPD exacerbation Allergies Constipation Anxiety/depression GERD Hypothyroidism Chronic pain COMPLICATIONS/CHIEF COMPLAINT: Copd Exacerbation. HISTORY OF PRESENT ILLNESS: Pt haris 65-year-old male from [facility] who has COPD stage IV and chronically on 3 L of oxygen who presents with worsening fever/chills, shortness of breath, and cough. Patient was admitted for COPD exacerbation. Patient received IV steroids, IV antibiotics, breathing treatments scheduled and as needed. HOSPITAL COURSE: During the hospital stay with the following issue addressed 1. COPD exacerbation Exacerbation has resolved. Patient is no longer wheezing. Patient received 40 mg/day. Converted Levaquin to p.o. daily x5 days 2. Allergies Continue cetirizine and Flonase 3. Constipation Patient is on Colace and Senokot-S Holding naloxegol and MiraLAX Patient has a history of constipation, but tells me his diarrhea is chronic Patient's PCP may want to adjust bowel regimen 4. Anxiety/depression Continue to Loxitane, amitriptyline, and buspirone 5. GERD Continue pantoprazole 6. Hypothyroidism Continue levothyroxine DISCHARGE MEDICATIONS: Please see below. ALLERGIES: Please see below. PHYSICAL EXAMINATION ON DISCHARGE: VITAL SIGNS: Please see below. General: NAD, comfortable HEENT: PERRLA, EOMI, sclerae clear nasal cannula in place Neck: supple, normal ROM, no JVD Respiratory: Fair inspiratory effort, no wheeze, no rales, no crackles CVS: RRR, normal S1, S2, no murmurs Abdo: soft, no masses, no hepatosplenomegaly, BS+, no rebound tenderness Extremities: no edema, pulses 2+ MSK: no joint deformities, normal ROM Neuro: no focal neuro deficits, moving all 4 extremities, CN2-12 intact. Strength 5/5 in all 4 extremities. No nystagmus. Psych: calm, cooperative, AAO x 3 LABORATORY DATA: Please see below. PROGNOSIS: Fair ACTIVITY: [As tolerated]. DIET: Regular DISPOSITION: 63 D/T [employer] [facility] 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 TIME SPENT ON DISCHARGE:50 minutes. Vital Signs/I&Os Vital Signs Date Time Temp Pulse Resp B/P (MAP) Pulse Ox O2 Delivery O2 Flow Rate FiO2 07/13/21 08:00 3.0 07/13/21 06:15 118/82 (94) 07/13/21 06:00 98.2 90 20 98 Nasal Cannula I&O- Last 24 Hours up to 6 AM 07/13/21 06:00 Intake Total 1750 ml Output Total 1375 ml Balance 375 ml Laboratory Data Labs 24H Laboratory Tests 2 07/13/21 06:04: Nucleated Red Blood Cells % (auto) 0.0, Anion Gap 5L, Glomerular Filtration Rate > 60.0, Calcium Level 9.4 CBC/BMP Laboratory Tests 07/13/21 06:04 Microbiology Microbiology 07/11/21 Gram Stain - Final, Complete 07/11/21 Sputum Culture - Final, Complete 07/10/21 Blood Culture - Preliminary, Resulted No Growth after 72 hours. All specime... 07/10/21 Blood Culture - Preliminary, Resulted No Growth after 72 hours. All specime... 07/10/21 Respiratory Virus Panel (PCR) ([facility]) - Final, Complete Discharge Medications Scheduled Acetaminophen (Acetaminophen 8 Hour) 650 Mg Tablet.er, 650 MG PO Q6H, (Reported) 0000, 0600, 1200, 1800 Aclidinium [place] (Tudorza Pressair) 400 Mcg Aer.pow.ba, 1 PUFF INH BID, (Reported) Amitriptyline HCl (Amitriptyline HCl) 75 Mg Tablet, 75 MG PO QHS, (Reported) Baclofen (Baclofen) 10 Mg Tablet, 10 MG PO TID, (Reported) 0900, 1300, 2000 Calcium Carbonate/Vitamin D3 (Calcium 500-Vit D3 200 Tablet) 1 Each Tablet, 1 TAB PO BID, (Reported) Cetirizine HCl (Cetirizine HCl) 10 Mg Tablet, 10 MG PO QHS, (Reported) Cyanocobalamin (Vitamin B-12) (Vitamin B-12) 500 Mcg Tablet, 500 MCG PO DAILY, (Reported) Docusate Sodium (Docusate Sodium) 100 Mg Capsule, 100 MG PO DAILY, (Reported) Duloxetine Hcl (Duloxetine HCl) 30 Mg Capsule.dr, 30 MG PO DAILY, (Reported) Ergocalciferol (Vitamin D2) (Vitamin D2) 50,000 Units Cap, 50,000 UNITS PO QWEEK, (Reported) MONDAY Fish Oil/Dha/Epa (Fish Oil 1,200 mg Fish Oil) 1 Each Capsule, 1 CAP PO DAILY, (Reported) Fluticasone Propionate (Fluticasone Propionate) 15.8 Ml [place].susp, 1 SPRAY NA DAILY, (Reported) MAY SELF ADMINISTER AND KEEP AT BEDSIDE Fluticasone/Vilanterol (Breo Ellipta 100-25 Mcg INH) 1 Each Blst.w.dev, 1 PUFF INH DAILY, (Reported) Furosemide (Furosemide) 80 Mg Tablet, 40 MG PO DAILY, (Reported) Gabapentin (Gabapentin) 600 Mg Tablet, 600 MG PO TID, (Reported) 0600, 1200, 1800 Guaifenesin (Mucinex) 600 Mg Tab.er.12h, 600 MG PO BID, (Reported) Ipratropium [place] (Atrovent Hfa) 12.9 Gm Hfa.aer.ad, 2 PUFF INH QID Levofloxacin (Levofloxacin) 750 Mg Tablet, 750 MG PO DAILY@1800 Levothyroxine Sodium (Levoxyl) 25 Mcg Tablet, 25 MCG PO DAILY, (Reported) Mometasone/Formoterol (Dulera 200 Mcg/5 Mcg Inhaler) 13 Gm Hfa.aer.ad, 2 PUFFS INH BID, (Reported) Naloxegol Oxalate (Movantik) 25 Mg Tablet, 25 MG PO DAILY, (Reported) Pantoprazole Sodium (Protonix) 40 Mg Tab, 40 MG PO DAILY, (Reported) Polyethylene Glycol 3350 (Miralax) 17 Gm Powd.pack, 17 GM PO BID, (Reported) 0800, 1700; RESIDENT WILL PLACE MEDICATION IN HIS OWN OJ AT BEDSIDE AND SELF- ADMINISTER Polyvinyl Alcohol (Artificial Tears) 15 Ml Drops, 1 DROP OD QID, (Reported) 0600, 1000, 1400, 2000 Prednisone (Prednisone) 10 Mg Tablet, 10 MG PO TAPER Take 4 tabs daily x 3 days, then 3 tabs daily x 3 days, then 2 tabs daily x 3 days, then 1 tab daily x 3 days and stop Propylene Glycol (Systane Complete) 10 Ml Drops, 1 DROP OU Q4H, (Reported) 0000, 0400, 0800, 1200, 1600, 2000 Sennosides/Docusate Sodium (Senna-S Tablet) 1 Each Tablet, 1 TAB PO DAILY, (Reported) Zonisamide (Zonisamide) 100 Mg Capsule, 200 MG PO QHS, (Reported) Scheduled PRN Albuterol Sulf (Albuterol Sulfate) 2.5 Mg/3 Ml Nebu, 3 ML INH Q4H PRN for SHORTNESS OF BREATH, (Reported) Albuterol Sulfate (Proair Hfa) 8.5 Gm Hfa.aer.ad, 2 PUFF INH Q4H PRN for SHORTNESS OF BREATH, (Reported) Benzocaine/Menthol (Cepacol Sore Throat Lozenge) 1 Each Lozenge, 1 NELLY MT Q6H PRN for SORE THROAT, (Reported) Magnesium Hydroxide (Milk of Magnesia) 400 Mg/5 Ml Oral.susp, 30 ML PO DAILY PRN for CONSTIPATION, (Reported) Oxymetazoline HCl (Afrin) 15 Ml [place], 2 SPRAY NA Q12H PRN for NASAL DRYNESS, (Reported) PLACE AT BEDSIDE FOR PATIENT TO USE NEEDED Rizatriptan Benzoate (Rizatriptan) 5 Mg Tablet, 5 MG PO DAILY PRN for MIGRAINE, (Reported) Sodium Chloride ([place]) 104 Ml [place], 2 SPRAY NA QID PRN for NASAL DRYNESS, (Reported) Allergies Coded Allergies: ENVIRONMENTAL (Verified Allergy, Unknown, "MOST PAIN MEDS", 03/21/19) Penicillins (Verified Allergy, Unknown, 03/21/19) YENY ZAMBRANO DO Jul 13, 2021 19:07
[2021-07-14 20:08] LABS: BODY FLUID CULTURE Not indicated. (.); LEGIONELLA ANTIGEN URINE Negative (Negative); ORGANISM ID Not indicated. (.); SPECIMEN SOURCE Urine (.); URINE STREP PNEUMONIAE ANTIGEN Negative (Negative)
== END 2021-07-13 12:11 ==
LOC: M ED 14:43 → EDBD 14:43 → M ED INP 19:35 → M MSPAV 22:10
PROVIDERS: ADMIT Internal Medicine; ATTEND Internal Medicine
DX: J44.1 Chronic obstructive pulmonary disease with (acute) exacerbation (principal); J30.9 Allergic rhinitis, unspecified; K59.00 Constipation, unspecified; F41.9 Anxiety disorder, unspecified; F32.9 Major depressive disorder, single episode, unspecified; K21.9 Gastro-esophageal reflux disease without esophagitis; E03.9 Hypothyroidism, unspecified; G89.4 Chronic pain syndrome; Z99.81 Dependence on supplemental oxygen; J02.9 Acute pharyngitis, unspecified; R50.9 Fever, unspecified; R06.02 Shortness of breath; Z79.899 Other long term (current) drug therapy; Z79.2 Long term (current) use of antibiotics; Z79.51 Long term (current) use of inhaled steroids; Z79.52 Long term (current) use of systemic steroids; Z88.0 Allergy status to penicillin; Z88.5 Allergy status to narcotic agent; Z87.891 Personal history of nicotine dependence
CPT/HCPCS: 36415; 36600; 71045; 71275; 80048; 80076; 82550; 82553; 82803; 83605; 83735; 83880; 84145; 84436; 84443; 84484; 85025; 85027; 87040; 87070; 87205; 87449; 87798; 87899; 90670; 93005; 93041; 94640; 96365; 96375; 96376; 97161; 99285; G0009; G0378; J1650; J1956; J2920; J2930; J7512; Q9967

== ENCOUNTER → 2021-09-06 | Outpatient (REF) | payer MEDICARE, MEDICAID ==
[~2021-09-06] MED LIST changes: +BREO1INH INH; +CEPALOZ8 MT; +DULO30CA9 PO; +GABA600T4 PO; +IPRAINH INH; +KP F1200 PO; +LEVO750T13 PO; +NALO25TA PO; +PRED10TA2 PO; +RIZA5TAB2 PO; +TUDO1AER3 INH; +VITA500T17 PO
== END ==
LOC: M LAB REF 15:04
PROVIDERS: ATTEND Physician Assistant Medical
DX: R05.9 Cough, unspecified (principal); R09.89 Other specified symptoms and signs involving the circulatory and respiratory systems; R53.83 Other fatigue

== ENCOUNTER → 2021-09-14 | Outpatient (CLI) | payer MEDICARE, MEDICAID ==
[2021-09-14 15:21] LABS: BASO # 0.1 10^3/uL (0.0-0.2); BASO % 0.6 % (0.0-1.0); EOS # 0.3 10^3/uL (0.0-0.5); EOS % 3.6 % (0.0-3.0); HEMATOCRIT 40.4 % (42.0-52.0); LYMPH # 1.3 10^3/uL (1.5-5.0); LYMPH % 16.3 % (24.0-44.0); MEAN CORPUSCULAR HEMOGLOBIN 32.7 pg (27.0-33.0); MEAN CORPUSCULAR HGB CONC 32.2 g/dl (32.0-36.5); MEAN CORPUSCULAR VOLUME 101.5 fl (80.0-96.0); MONO # 0.7 10^3/uL (0.0-0.8); MONO % 8.8 % (2.0-8.0); NEUTROPHILS # 5.6 10^3/uL (1.5-8.5); NEUTROPHILS % 70.4 % (36.0-66.0); PLATELET COUNT, AUTOMATED 183 10^3/uL (150-450); RED BLOOD COUNT 3.98 10^6/uL (4.30-6.10)
[2021-09-14 15:54] LABS: ERYTHROCYTE SEDIMENTATION RATE 43 mm/hr (0-20)
== END ==
LOC: M PLAIMG 12:53
PROVIDERS: ATTEND Physician Assistant Medical
DX: J06.9 Acute upper respiratory infection, unspecified (principal); D69.6 Thrombocytopenia, unspecified

== ENCOUNTER → 2021-09-14 | Outpatient (REF) | payer MEDICARE, MEDICAID | LOC: M SFHCPLAZ 16:55 | PROVIDERS: ATTEND Physician Assistant Medical | DX: J06.9 Acute upper respiratory infection, unspecified (principal) ==

== ENCOUNTER → 2021-10-17 | Outpatient (REF) | payer MEDICARE, MEDICAID | PROVIDERS: ATTEND Physician Assistant Medical | DX: R05.8 Other specified cough (principal) ==

== ENCOUNTER → 2021-12-15 | Outpatient (REF) | payer MEDICARE, MEDICAID ==
[2021-12-15 10:11] LABS: BASO % 0.7 % (0.0-1.0); EOS # 0.4 10^3/uL (0.0-0.5); HEMATOCRIT 36.3 % (42.0-52.0); HEMOGLOBIN 11.6 g/dl (13.5-17.5); LYMPH # 1.8 10^3/uL (1.5-5.0); LYMPH % 29.3 % (24.0-44.0); MEAN CORPUSCULAR VOLUME 103.1 fl (80.0-96.0); MONO # 0.7 10^3/uL (0.0-0.8); MONO % 11.2 % (2.0-8.0); NEUTROPHILS # 3.2 10^3/uL (1.5-8.5); NEUTROPHILS % 52.6 % (36.0-66.0); PLATELET COUNT, AUTOMATED 151 10^3/uL (150-450); RED BLOOD COUNT 3.52 10^6/uL (4.30-6.10); WHITE BLOOD COUNT 6.1 10^3/uL (4.0-10.0)
[2021-12-15 10:47] LABS: C REACTIVE PROTEIN QUANTITATIV < 0.30 MG/DL (0.00-0.30); FREE T4 1.02 NG/DL (0.76-1.46); TOTAL PROTEIN 6.3 GM/DL (6.4-8.2)
[2021-12-16 10:18] LABS: ALBUMIN % 58.7 % (55.8-66.1); ALPHA-1-GLOBULIN % 3.9 % (2.9-4.9); ALPHA-1-GLOBULINS 0.25 GM/DL (0.17-0.41); ALPHA-2-GLOBULINS 0.83 GM/DL (0.42-0.99); ALPHA-2-GLOBULINS % 13.1 % (7.1-11.8); BETA-1-GLOBULINS 0.32 GM/DL (0.28-0.60); BETA-1-GLOBULINS % 5.1 % (4.7-7.2); BETA-2-GLOBULINS 0.37 GM/DL (0.19-0.55); BETA-2-GLOBULINS % 5.9 % (3.2-6.5); GAMMA GLOBULIN % 13.3 % (11.1-18.8); GAMMA GLOBULINS 0.84 GM/DL (0.65-1.58)
== END ==
PROVIDERS: ATTEND Physician Assistant Medical
DX: J06.9 Acute upper respiratory infection, unspecified (principal); D64.9 Anemia, unspecified; F41.9 Anxiety disorder, unspecified

== ENCOUNTER → 2021-12-17 | Outpatient (REF) | payer MEDICARE, MEDICAID | PROVIDERS: ATTEND Physician Assistant Medical | DX: R09.89 Other specified symptoms and signs involving the circulatory and respiratory systems (principal) ==

== ENCOUNTER → 2021-12-20 | Outpatient (CLI) | payer MEDICARE, MEDICAID | LOC: M PLALAB 15:29 | PROVIDERS: ATTEND Physician Assistant Medical | DX: M50.30 Other cervical disc degeneration, unspecified cervical region (principal) ==

== ENCOUNTER → 2022-01-05 | Outpatient (CLI) | payer MEDICARE, MEDICAID ==
[2022-01-05 14:01] LABS: HEMATOCRIT 37.5 % (42.0-52.0)
[2022-01-05 14:02] LABS: BASO # 0.1 10^3/uL (0.0-0.2); BASO % 0.7 % (0.0-1.0); EOS # 0.4 10^3/uL (0.0-0.5); EOS % 5.2 % (0.0-3.0); HEMATOCRIT 37.4 % (42.0-52.0); HEMOGLOBIN 12.2 g/dl (13.5-17.5); LYMPH # 1.2 10^3/uL (1.5-5.0); LYMPH % 17.3 % (24.0-44.0); MEAN CORPUSCULAR HEMOGLOBIN 33.2 pg (27.0-33.0); MEAN CORPUSCULAR HGB CONC 32.6 g/dl (32.0-36.5); MEAN CORPUSCULAR VOLUME 101.9 fl (80.0-96.0); MONO # 0.9 10^3/uL (0.0-0.8); MONO % 12.2 % (2.0-8.0); NEUTROPHILS # 4.6 10^3/uL (1.5-8.5); NEUTROPHILS % 64.3 % (36.0-66.0); PLATELET COUNT, AUTOMATED 166 10^3/uL (150-450); RED BLOOD COUNT 3.67 10^6/uL (4.30-6.10); WHITE BLOOD COUNT 7.1 10^3/uL (4.0-10.0)
[2022-01-05 15:53] LABS: ALBUMIN 3.7 GM/DL (3.2-5.2); ALT/SGPT 33 U/L (12-78); BILIRUBIN,TOTAL 0.2 MG/DL (0.2-1.0); BLOOD UREA NITROGEN 27 MG/DL (7-18); CALCIUM LEVEL 9.1 MG/DL (8.8-10.2); CARBON DIOXIDE LEVEL 34 MEQ/L (21-32); CHLORIDE LEVEL 105 MEQ/L (98-107); CHOLESTEROL LEVEL 159 MG/DL (<200); CHOLESTEROL RISK RATIO 2.373 (<5); CREATININE FOR GFR 1.04 MG/DL (0.70-1.30); FREE T4 1.11 NG/DL (0.76-1.46); GLOMERULAR FILTRATION RATE > 60.0 (>49); GLUCOSE, FASTING 105 MG/DL (70-100); HDL CHOLESTEROL 67 MG/DL (>40); LDL CHOLESTEROL 84 MG/DL (<100); NON-HDL-C 92 MG/DL; SODIUM LEVEL 141 MEQ/L (136-145); TOTAL PROTEIN 7.1 GM/DL (6.4-8.2); TRIGLYCERIDES LEVEL 41 MG/DL (<150)
[2022-01-05 15:55] LABS: PTH INTACT 48.1 PG/ML (18.5-88.0); TOTAL 25(OH) VITAMIN D 105.8 NG/ML (30.0-100.0); VITAMIN B12 LEVEL 768 PG/ML (247-911)
== END ==
LOC: M PLALAB 10:40
PROVIDERS: ATTEND Physician Assistant Medical
DX: E03.9 Hypothyroidism, unspecified (principal); D75.89 Other specified diseases of blood and blood-forming organs; E55.9 Vitamin D deficiency, unspecified; D64.9 Anemia, unspecified; Z12.5 Encounter for screening for malignant neoplasm of prostate; Z13.220 Encounter for screening for lipoid disorders

== ENCOUNTER → 2022-03-23 | Outpatient (CLI) | payer MEDICARE, MEDICAID ==
[~2022-03-23] MED LIST changes: -AFRI0.058; +BENZ1LOZ9 MT; -CEPALOZ8 MT; +OXYM15SP2; +TUDO1AER2 INH; -TUDO1AER3 INH; -ZONI100C17 PO; +ZONI100C67 PO
== END ==
LOC: M CARPUL 11:32
PROVIDERS: ATTEND Family Medicine
DX: I50.32 Chronic diastolic (congestive) heart failure (principal)

== ENCOUNTER → 2022-04-15 | Outpatient (CLI) | payer MEDICARE, MEDICAID ==
[~2022-04-15] MED LIST changes: +ALBU2.5V10 INH; -ALBU83IN INH
== END ==
LOC: M WHC 13:54
PROVIDERS: ATTEND Physician Assistant Medical
DX: M81.0 Age-related osteoporosis without current pathological fracture (principal)

== ENCOUNTER → 2022-04-19 | Outpatient (REF) | payer MEDICARE, MEDICAID | LOC: M SFHCPLAZ 16:43 | PROVIDERS: ATTEND Physician Assistant | DX: R05.9 Cough, unspecified (principal) ==

== ENCOUNTER → 2022-04-29 | Outpatient (CLI) | payer MEDICARE, MEDICAID | LOC: M RAD 12:58 | PROVIDERS: ATTEND Internal Medicine Pulmonary Disease | DX: Z12.2 Encounter for screening for malignant neoplasm of respiratory organs (principal); Z87.891 Personal history of nicotine dependence ==

== ENCOUNTER → 2022-05-30 | Outpatient (REF) | payer MEDICARE, MEDICAID | PROVIDERS: ATTEND Physician Assistant Medical | DX: Z20.822 Contact with and (suspected) exposure to COVID-19 (principal) ==

== ENCOUNTER → 2022-06-13 | Outpatient (REF) | payer MEDICARE, MEDICAID ==
[~2022-06-13] MED LIST changes: -DULE200A INH; +LEVO1TAB40 PO; -LEVO750T13 PO; +MOME13HF7 INH
[2022-06-13 11:42] LABS: BASO % 0.6 % (0.0-1.0); EOS # 0.3 10^3/uL (0.0-0.5); EOS % 4.2 % (0.0-3.0); HEMATOCRIT 40.1 % (42.0-52.0); HEMOGLOBIN 12.6 g/dl (13.5-17.5); LYMPH # 1.6 10^3/uL (1.5-5.0); LYMPH % 21.9 % (24.0-44.0); MEAN CORPUSCULAR HEMOGLOBIN 34.1 pg (27.0-33.0); MEAN CORPUSCULAR HGB CONC 31.4 g/dl (32.0-36.5); MEAN CORPUSCULAR VOLUME 108.4 fl (80.0-96.0); MONO # 0.8 10^3/uL (0.0-0.8); MONO % 11.3 % (2.0-8.0); NEUTROPHILS # 4.4 10^3/uL (1.5-8.5); NEUTROPHILS % 61.6 % (36.0-66.0); PLATELET COUNT, AUTOMATED 146 10^3/uL (150-450); WHITE BLOOD COUNT 7.2 10^3/uL (4.0-10.0)
[2022-06-13 12:56] LABS: ALBUMIN 3.6 GM/DL (3.2-5.2); BLOOD UREA NITROGEN 18 MG/DL (7-18); CARBON DIOXIDE LEVEL 31 MEQ/L (21-32); CHLORIDE LEVEL 104 MEQ/L (98-107); CREATININE FOR GFR 0.96 MG/DL (0.70-1.30); FERRITIN 30 NG/ML (26-388); GLOMERULAR FILTRATION RATE > 60.0 (>49); GLUCOSE, FASTING 97 MG/DL (70-100); NT-PRO BNP 43 PG/ML (<125); PHOSPHORUS LEVEL 2.5 MG/DL (2.5-4.9); POTASSIUM SERUM 4.1 MEQ/L (3.5-5.1); SODIUM LEVEL 141 MEQ/L (136-145)
== END ==
PROVIDERS: ATTEND Family Medicine
DX: Z12.11 Encounter for screening for malignant neoplasm of colon (principal); D75.89 Other specified diseases of blood and blood-forming organs

== ENCOUNTER → 2022-06-29 | Outpatient (REF) | payer MEDICARE, MEDICAID ==
[~2022-06-29] MED LIST changes: +DULE200A INH; -MOME13HF7 INH
== END ==
LOC: M SFHCPLAZ 12:47
PROVIDERS: ATTEND Physician Assistant Medical
DX: J02.9 Acute pharyngitis, unspecified (principal); R09.81 Nasal congestion

== ENCOUNTER → 2022-08-17 | Outpatient (REF) | payer MEDICARE, MEDICAID ==
[~2022-08-17] MED LIST changes: -DULE200A INH; +MOME13HF7 INH
== END ==
PROVIDERS: ATTEND Physician Assistant Medical
DX: Z20.822 Contact with and (suspected) exposure to COVID-19 (principal)

== ENCOUNTER → 2022-10-24 | Outpatient (REF) | payer MEDICARE, MEDICAID | PROVIDERS: ATTEND Physician Assistant Medical | DX: Z20.822 Contact with and (suspected) exposure to COVID-19 (principal) ==

== ENCOUNTER → 2022-11-08 | Outpatient (REF) | payer MEDICARE, MEDICAID | LOC: M LAB REF 17:00 | PROVIDERS: ATTEND Internal Medicine Pulmonary Disease | DX: J44.9 Chronic obstructive pulmonary disease, unspecified (principal) ==

== ENCOUNTER → 2022-12-15 | Outpatient (CLI) | payer MEDICARE, MEDICAID ==
[2022-12-15 15:50] LABS: ALBUMIN 3.8 G/DL (3.2-5.2); ALKALINE PHOSPHATASE 86 U/L (46-116); ALT/SGPT 22 U/L (7.0-40); AST/SGOT 21 U/L (<34); BILIRUBIN,TOTAL 0.2 MG/DL (0.3-1.2); BLOOD UREA NITROGEN 26 MG/DL (9-23); CALCIUM LEVEL 9.1 MG/DL (8.3-10.6); CARBON DIOXIDE LEVEL 30 MMOL/L (20-31); CHLORIDE LEVEL 105 MMOL/L (98-107); CREATININE FOR GFR 1.01 MG/DL (0.70-1.30); GLOMERULAR FILTRATION RATE > 60.0 (>49); GLUCOSE, FASTING 105 MG/DL (74-106); POTASSIUM SERUM 3.9 MMOL/L (3.5-5.1); PTH INTACT 31.3 PG/ML (18.5-88.0); SODIUM LEVEL 139 MMOL/L (136-145); TOTAL PROTEIN 6.6 G/DL (5.7-8.2)
[2022-12-15 15:52] LABS: TOTAL 25(OH) VITAMIN D 74.2 NG/ML (20.0-100.0)
== END ==
LOC: M PLALAB 11:31
PROVIDERS: ATTEND Physician Assistant Medical
DX: M89.8X9 Other specified disorders of bone, unspecified site (principal)

== ENCOUNTER 2023-02-01 00:32 | Emergency (ER) | payer MEDICARE, MEDICAID ==
[~2023-02-01] VITALS: Ht 180.3 cm; Wt 72.7 kg
[2023-02-01 01:06] LABS: BASO % 0.4 % (0.0-1.0); EOS # 0.1 10^3/uL (0.0-0.5); EOS % 0.7 % (0.0-3.0); HEMATOCRIT 41.5 % (42.0-52.0); HEMOGLOBIN 13.5 g/dl (13.5-17.5); LYMPH # 1.3 10^3/uL (1.5-5.0); LYMPH % 13.3 % (24.0-44.0); MEAN CORPUSCULAR HEMOGLOBIN 33.3 pg (27.0-33.0); MEAN CORPUSCULAR HGB CONC 32.5 g/dl (32.0-36.5); MEAN CORPUSCULAR VOLUME 102.5 fl (80.0-96.0); MONO # 1.1 10^3/uL (0.0-0.8); MONO % 10.7 % (2.0-8.0); NEUTROPHILS # 7.4 10^3/uL (1.5-8.5); NEUTROPHILS % 74.7 % (36.0-66.0); PLATELET COUNT, AUTOMATED 165 10^3/uL (150-450); RED BLOOD COUNT 4.05 10^6/uL (4.30-6.10); WHITE BLOOD COUNT 9.9 10^3/uL (4.0-10.0)
[2023-02-01 01:18] LABS: BLOOD UREA NITROGEN 37 MG/DL (9-23); CALCIUM LEVEL 9.4 MG/DL (8.3-10.6); CARBON DIOXIDE LEVEL 26 MMOL/L (20-31); CHLORIDE LEVEL 105 MMOL/L (98-107); CREATININE FOR GFR 0.93 MG/DL (0.70-1.30); GLOMERULAR FILTRATION RATE > 60.0 (>49); GLUCOSE, FASTING 116 MG/DL (74-106); POTASSIUM SERUM 4.2 MMOL/L (3.5-5.1); SODIUM LEVEL 138 MMOL/L (136-145)
[2023-02-01 01:42] LABS: RSV AMPLIFICATION NEGATIVE (NEGATIVE)
[2023-02-01] MEDS ORDERED: ONDA-195 PO (02:35)
[2023-02-01] MEDS ORDERED: BREO1INH3 INH (02:35)
[2023-02-01] MEDS ORDERED: PRED10TA2 PO (02:35)
[2023-02-01] MEDS ORDERED: FOLI1TAB11 PO (02:35)
[2023-02-01] MEDS ORDERED: DOXY-259 PO (02:35)
[2023-02-01] MEDS ORDERED: [UNRECOGNIZED DRUG - CODE] EXT (02:35)
[2023-02-01] MEDS ORDERED: AMMO12CR7 TOP ×2 (02:35)
[2023-02-01] MEDS ORDERED: ALBU8.5H INH (02:35)
[2023-02-01] MEDS ORDERED: CELE1CAP4 PO (02:35)
[2023-02-01] MEDS ORDERED: XIID5DRO OU (02:35)
[2023-02-01] MEDS ORDERED: SENN-122 PO (02:35)
[2023-02-01] MEDS ORDERED: EQ HPAD EXT (02:35)
[2023-02-01] MEDS ORDERED: TYML3120 SC (02:35)
[2023-02-01] MEDS ORDERED: ACET650T15 PO (02:35)
[2023-02-01] MEDS ORDERED: ALBU2.5V10 INH (02:35)
[2023-02-01] MEDS ORDERED: HOME MED LIST COMPLETE! XX SCH (02:40)
[2023-02-01] MEDS ORDERED: IPRATROPIUM 0.5MG/ALBUTEROL 2.5MG INH SOL UD 3ML (DUONEB) NEB ONE (03:40)
[2023-02-01] MEDS ORDERED: ONDANSETRON 4MG 2ML VIAL IV ONE (03:50)
[2023-02-01] MEDS ORDERED: PRED20TA PO (04:34)
[2023-02-01] MEDS ORDERED: methylPREDNISolone 125MG 2ML VIAL IV ONE (04:35)
[2023-02-01 04:45] VITALS: BP 113/76
== END 2023-02-01 05:31 | disposition home or self-care (01) ==
LOC: EDBD 00:32 → M ED 00:32
DX: J06.9 Acute upper respiratory infection, unspecified (principal); B34.9 Viral infection, unspecified; J44.9 Chronic obstructive pulmonary disease, unspecified; Z99.81 Dependence on supplemental oxygen; K21.9 Gastro-esophageal reflux disease without esophagitis; E03.9 Hypothyroidism, unspecified; Z88.0 Allergy status to penicillin; Z79.51 Long term (current) use of inhaled steroids; Z79.899 Other long term (current) drug therapy; Z79.890 Hormone replacement therapy
CPT/HCPCS: 71046; 80048; 85025; 87040; 87486; 87581; 87631; 87633; 87798; 93005; 94640; 96374; 99284; J2930

== ENCOUNTER → 2023-03-15 | Outpatient (REF) | payer MEDICARE, MEDICAID ==
[~2023-03-15] MED LIST changes: +ACET650T15 PO; +ALBU8.5H INH; +AMMO12CR7 TOP; +ARTIDRO4 OD; +BREO1INH3 INH; +CELE1CAP4 PO; +DOXY-259 PO; +EQ HPAD EXT; +FOLI1TAB11 PO; +ONDA-195 PO; -POLYOPD OD; +PRED20TA PO; +SENN-122 PO; +TYML3120 SC; +XIID5DRO OU; +[UNRECOGNIZED DRUG - CODE] EXT
[2023-03-15 10:33] LABS: BASO # 0.1 10^3/uL (0.0-0.2); BASO % 0.7 % (0.0-1.0); EOS # 0.2 10^3/uL (0.0-0.5); HEMATOCRIT 35.5 % (42.0-52.0); HEMOGLOBIN 11.2 g/dl (13.5-17.5); LYMPH # 1.6 10^3/uL (1.5-5.0); LYMPH % 20.9 % (24.0-44.0); MEAN CORPUSCULAR HGB CONC 31.5 g/dl (32.0-36.5); MEAN CORPUSCULAR VOLUME 107.9 fl (80.0-96.0); MONO # 0.9 10^3/uL (0.0-0.8); MONO % 11.4 % (2.0-8.0); NEUTROPHILS # 4.8 10^3/uL (1.5-8.5); NEUTROPHILS % 63.5 % (36.0-66.0); PLATELET COUNT, AUTOMATED 162 10^3/uL (150-450); RED BLOOD COUNT 3.29 10^6/uL (4.30-6.10); WHITE BLOOD COUNT 7.6 10^3/uL (4.0-10.0)
[2023-03-15 11:01] LABS: ALKALINE PHOSPHATASE 70 U/L (46-116); ALT/SGPT 16 U/L (7.0-40); AST/SGOT 17 U/L (<34); BILIRUBIN,TOTAL 0.3 MG/DL (0.3-1.2); BLOOD UREA NITROGEN 34 MG/DL (9-23); CALCIUM LEVEL 8.5 MG/DL (8.3-10.6); CARBON DIOXIDE LEVEL 31 MMOL/L (20-31); CHLORIDE LEVEL 108 MMOL/L (98-107); CREATININE FOR GFR 0.96 MG/DL (0.70-1.30); GLOMERULAR FILTRATION RATE > 60.0 (>49); GLUCOSE, FASTING 95 MG/DL (74-106); IRON (FE) 97 UG/DL (65-175); POTASSIUM SERUM 4.3 MMOL/L (3.5-5.1); SODIUM LEVEL 145 MMOL/L (136-145); TOTAL PROTEIN 5.5 G/DL (5.7-8.2)
[2023-03-15 12:16] LABS: FERRITIN 25.5 NG/ML (10.5-307.3); FREE T4 0.95 NG/DL (0.89-1.76); THYROID STIMULATING HORMONE 1.827 uIU/ML (0.55-4.78); VITAMIN B12 LEVEL 762 PG/ML (211-911)
[2023-03-17 18:07] LABS: IMMUNOTYPING SERUM IGA SO 266 mg/dL (61-437); IMMUNOTYPING SERUM IGM SO 29 mg/dL (20-172)
== END ==
PROVIDERS: ATTEND Physician Assistant Medical
DX: D78.89 Other postprocedural complications of the spleen (principal); D64.9 Anemia, unspecified; E03.9 Hypothyroidism, unspecified; Z13.220 Encounter for screening for lipoid disorders

== ENCOUNTER → 2023-03-21 | Outpatient (CLI) | payer MEDICARE, MEDICAID | LOC: M PLAIMG 14:27 | PROVIDERS: ATTEND Physician Assistant Medical | DX: M47.816 Spondylosis without myelopathy or radiculopathy, lumbar region (principal); M47.817 Spondylosis without myelopathy or radiculopathy, lumbosacral region; M47.812 Spondylosis without myelopathy or radiculopathy, cervical region; M19.011 Primary osteoarthritis, right shoulder; M79.2 Neuralgia and neuritis, unspecified ==

== ENCOUNTER → 2023-06-19 | Outpatient (CLI) | payer MEDICARE, MEDICAID ==
[~2023-06-19] MED LIST changes: -GABA-283 PO; +GABA-284 PO; -MAXA10TA15 PO; -MAXA10TA15 SL; +RIZA10TA66 PO; +RIZA10TA66 SL
== END ==
LOC: M RAD 12:03
PROVIDERS: ATTEND Internal Medicine Pulmonary Disease
DX: Z87.891 Personal history of nicotine dependence (principal)

== ENCOUNTER 2023-07-17 07:57 | Inpatient (IN) | payer MEDICARE, MEDICAID ==
[~2023-07-17] VITALS: Ht 180.3 cm; Wt 78.9 kg
[2023-07-17] VITALS (18 sets, daily range): BP systolic 96–121; BP diastolic 58–78; TEMP 97.4–100.7; O2SAT 86–100
[2023-07-17] MEDS ORDERED: ETOMIDATE INJ 20MG/10ML VIAL IV ONE (08:15)
[2023-07-17] MEDS ORDERED: MIDAZOLAM 100MG/100ML-0.9%NACL 100 MG in IV 1 EA IV SCH (08:15)
[2023-07-17] MEDS ORDERED: MIDAZOLAM INJ 2MG/2ML VIAL IV ONE (08:15)
[2023-07-17] MEDS ORDERED: ROCURONIUM BROMIDE 50MG/5ML VIAL IV ONE (08:15)
[2023-07-17] MEDS ORDERED: NS 1,000 ML IV ONE (08:35)
[2023-07-17 08:44] LABS: ABG pH (ARTERIAL) 7.357 UNITS (7.350-7.450)
[2023-07-17 08:45] LABS: ABG BASE EXCESS 3.1 (-2.0-2.0); ABG HCO3 29.5 MMOL/L (22.0-26.0); ABG O2 SATURATION 97.1 % (95.0-99.0); ABG PARTIAL PRESSURE CO2 53.8 mmHg (35.0-45.0); ABG PARTIAL PRESSURE O2 96.3 mmHg (75.0-100.0); ABG STANDARD HCO3 27.2 MMOL/L. (22.0-26.0); ABG TOTAL CO2 31.2 MMOL/L (23.0-31.0)
[2023-07-17] MEDS ORDERED: MED REC IN PROGRESS XX SCH (09:10)
[2023-07-17 09:17] LABS: ETHYL ALCOHOL (ETHANOL) < 0.003 % (0.000-0.010)
[2023-07-17 09:18] LABS: ACETAMINOPHEN LEVEL 8.4 UG/ML (10.0-20.0)
[2023-07-17 09:19] LABS: BLOOD UREA NITROGEN 41 MG/DL (9-23); CALCIUM LEVEL 9.5 MG/DL (8.3-10.6); CARBON DIOXIDE LEVEL 33 MMOL/L (20-31); CHLORIDE LEVEL 100 MMOL/L (98-107); GLUCOSE, FASTING 118 MG/DL (74-106); POTASSIUM SERUM 4.4 MMOL/L (3.5-5.1); SALICYLATE LEVEL < 3.0 MG/DL (<30); SODIUM LEVEL 139 MMOL/L (136-145)
[2023-07-17 09:21] LABS: BASO % 0.4 % (0.0-1.0); EOS # 0.1 10^3/uL (0.0-0.5); EOS % 0.9 % (0.0-3.0); HEMATOCRIT 39.7 % (42.0-52.0); HEMOGLOBIN 12.5 g/dl (13.5-17.5); LYMPH # 0.9 10^3/uL (1.5-5.0); MEAN CORPUSCULAR HEMOGLOBIN 33.5 pg (27.0-33.0); MEAN CORPUSCULAR HGB CONC 31.5 g/dl (32.0-36.5); MEAN CORPUSCULAR VOLUME 106.4 fl (80.0-96.0); MONO # 1.5 10^3/uL (0.0-0.8); MONO % 13.3 % (2.0-8.0); NEUTROPHILS # 8.4 10^3/uL (1.5-8.5); PLATELET COUNT, AUTOMATED 190 10^3/uL (150-450); RED BLOOD COUNT 3.73 10^6/uL (4.30-6.10); THYROID STIMULATING HORMONE 1.797 uIU/ML (0.55-4.78); WHITE BLOOD COUNT 10.9 10^3/uL (4.0-10.0)
[2023-07-17] MEDS ORDERED: XALA0.007 OU (09:33)
[2023-07-17 09:39] LABS: AMPHETAMINES LEVEL URINE NEGATIVE (NEGATIVE); BARBITURATES URINE NEGATIVE (NEGATIVE); BENZODIAZEPINES URINE NEGATIVE (NEGATIVE); COCAINE METABOLITE URINE NEGATIVE (NEGATIVE); METHADONE URINE NEGATIVE (NEGATIVE); OPIATES URINE NEGATIVE (NEGATIVE); PHENCYCLIDINE URINE NEGATIVE (NEGATIVE)
[2023-07-17] MEDS ORDERED: FERR32TA PO (09:39)
[2023-07-17 09:44] LABS: CANNABINOIDS URINE POSITIVE (NEGATIVE)
[2023-07-17] MEDS ORDERED: HOME MED LIST COMPLETE! XX SCH (09:45)
[2023-07-17 09:46] LABS: PROCALCITONIN 0.45 ng/ml
[2023-07-17 10:32] LABS: ABG BASE EXCESS 1.9 (-2.0-2.0); ABG HCO3 29.7 MMOL/L (22.0-26.0); ABG O2 SATURATION 96.8 % (95.0-99.0); ABG PARTIAL PRESSURE O2 94.2 mmHg (75.0-100.0); ABG STANDARD HCO3 26.1 MMOL/L. (22.0-26.0); ABG TOTAL CO2 31.6 MMOL/L (23.0-31.0); ABG pH (ARTERIAL) 7.293 UNITS (7.350-7.450)
[2023-07-17 10:35] LABS: ABG PARTIAL PRESSURE CO2 62.7 mmHg (35.0-45.0)
[2023-07-17] MEDS ORDERED: propofoL 1,000 MG in IV 1 EA IV SCH (11:35)
[2023-07-17] MEDS: PANTOPRAZOLE 40MG VIAL IV SCH (12:34)
[2023-07-17 13:47] LABS: VENOUS BASE EXCESS 2.4 (-2.0-2.0); VENOUS O2 SATURATION 99.2 % (60.0-80.0); VENOUS PARTIAL PRESSURE CO2 60.4 mmHg (38.0-50.0); VENOUS PARTIAL PRESSURE O2 199.8 mmHg (30.0-50.0); VENOUS PH 7.314 UNITS (7.330-7.430); VENOUS STANDARD HCO3 26.6 MMOL/L; VENOUS TOTAL CO2 31.9 MMOL/L (24.0-28.0)
[2023-07-17] MEDS ORDERED: MAGNESIUM SULFATE IV STA ×2 (13:54)
[2023-07-17] MEDS ORDERED: WATER IV STA ×2 (13:54)
[2023-07-17] MEDS ORDERED: LR 1,000 ML IV SCH (13:55)
[2023-07-17] MEDS: HEPARIN SOD (PORCINE) 5000UNITS/ML 1ML VIAL/SYRINGE SC SCH ×2 (15:02→21:07)
[2023-07-17 15:57] LABS: PHOSPHORUS LEVEL 3.4 MG/DL (2.4-5.1)
[2023-07-17] MEDS ORDERED: MAG SULF 1GM/100ML (MAG RUN) 1 GM in IV 1 EA IV ONE (16:00)
[2023-07-17] MEDS: POLYVINYL ALCOHOL OPHTH SOLN 15ML (LIQUITEARS) OU SCH ×2 (17:02→21:07)
[2023-07-17] MEDS: MIDAZOLAM 100MG/100ML-0.9%NACL 100 MG in IV 1 EA IV SCH (19:00)
[2023-07-17] MEDS: ALBUTEROL SULFATE 2.5MG/0.5ML INH NEB SOLN NEB SCH (19:06)
[2023-07-17] MEDS: CHLORHEXIDINE GLUCONATE 0.12 % 15ML UDC (PERIDEX ORAL RINSE) MT SCH (21:06)
[2023-07-17] MEDS: NYSTATIN 500,000U/5ML SUSP UDC SS SCH (21:07)
[2023-07-17] MEDS: LATANOPROST 0.005% OPHTH SOLN 2.5 ML OU SCH (21:07)
[2023-07-17] MEDS: ZONISAMIDE PO SCH (21:27)
[2023-07-17] MEDS: LR 1,000 ML IV SCH (23:54)
[2023-07-18] VITALS (31 sets, daily range): BP systolic 81–124; BP diastolic 51–79; TEMP 98.6–101.4; O2SAT 94–97
[2023-07-18] MEDS ORDERED: ACETAMINOPHEN *IV* 1,000 MG in IV 1 EA IV ONE ×2 (00:30→09:00)
[2023-07-18] MEDS ORDERED: MIDAZOLAM INJ 2MG/2ML VIAL IV ONE (00:30)
[2023-07-18] MEDS: LR 1,000 ML IV SCH (03:57)
[2023-07-18] MEDS: LEVOTHYROXINE 25MCG TABLET (0.025MG) XX SCH (05:19)
[2023-07-18] MEDS: HEPARIN SOD (PORCINE) 5000UNITS/ML 1ML VIAL/SYRINGE SC SCH (05:19)
[2023-07-18 05:42] LABS: BASO % 0.2 % (0.0-1.0); EOS # 0.2 10^3/uL (0.0-0.5); EOS % 2.2 % (0.0-3.0); HEMATOCRIT 34.4 % (42.0-52.0); LYMPH # 1.3 10^3/uL (1.5-5.0); MEAN CORPUSCULAR HEMOGLOBIN 33.5 pg (27.0-33.0); MEAN CORPUSCULAR VOLUME 104.9 fl (80.0-96.0); MONO # 1.2 10^3/uL (0.0-0.8); NEUTROPHILS # 6.3 10^3/uL (1.5-8.5); NEUTROPHILS % 70.4 % (36.0-66.0); PLATELET COUNT, AUTOMATED 157 10^3/uL (150-450); RED BLOOD COUNT 3.28 10^6/uL (4.30-6.10); WHITE BLOOD COUNT 8.9 10^3/uL (4.0-10.0)
[2023-07-18] MEDS: MIDAZOLAM 100MG/100ML-0.9%NACL 100 MG in IV 1 EA IV SCH (06:00)
[2023-07-18 06:12] LABS: BLOOD UREA NITROGEN 34 MG/DL (9-23); CALCIUM LEVEL 8.3 MG/DL (8.3-10.6); CARBON DIOXIDE LEVEL 32 MMOL/L (20-31); CHLORIDE LEVEL 103 MMOL/L (98-107); GLOMERULAR FILTRATION RATE > 60.0 (>49); GLUCOSE, FASTING 120 MG/DL (74-106); SODIUM LEVEL 140 MMOL/L (136-145)
[2023-07-18 06:24] LABS: CPK CREATINE PHOSPHOKINASE 1248 U/L (46-171)
[2023-07-18] MEDS: ALBUTEROL SULFATE 2.5MG/0.5ML INH NEB SOLN NEB SCH (07:41)
[2023-07-18] MEDS: PANTOPRAZOLE 40MG VIAL IV SCH (08:16)
[2023-07-18] MEDS: FUROSEMIDE 20MG/2ML VIAL IV SCH (08:18)
[2023-07-18] MEDS: CHLORHEXIDINE GLUCONATE 0.12 % 15ML UDC (PERIDEX ORAL RINSE) MT SCH (08:22)
[2023-07-18] MEDS: methylPREDNISolone 125MG 2ML VIAL IV SCH ×2 (08:28→20:45)
[2023-07-18] MEDS: NYSTATIN 500,000U/5ML SUSP UDC SS SCH ×2 (08:33→20:44)
[2023-07-18] MEDS: POLYVINYL ALCOHOL OPHTH SOLN 15ML (LIQUITEARS) OU SCH ×4 (08:34→20:46)
[2023-07-18] MEDS ORDERED: methylPREDNISolone 40MG 1ML VIAL IV SCH (09:00)
[2023-07-18] MEDS ORDERED: BISACODYL 10MG SUPP PR PRN (11:55)
[2023-07-18] MEDS ORDERED: OXYMETAZOLINE 0.05% NASAL SPRAY (AFRIN) PRN (11:55)
[2023-07-18] MEDS ORDERED: MOM 30ML SUSPENSION UDC PO PRN (11:55)
[2023-07-18] MEDS ORDERED: CEPACOL LOZENGE MT PRN (11:55)
[2023-07-18] MEDS: ACETAMINOPHEN 650MG ER TAB (TYLENOL ARTHRITIS) PO SCH ×2 (12:00→17:28)
[2023-07-18] MEDS ORDERED: ALBUTEROL SULFATE 2.5MG/0.5ML INH NEB SOLN NEB SCH (12:00)
[2023-07-18] MEDS: DOCUSATE SODIUM 100MG CAPSULE PO SCH (12:51)
[2023-07-18] MEDS: SENOKOT S TAB PO SCH (12:51)
[2023-07-18] MEDS: FOLIC ACID 1MG TAB PO SCH (12:52)
[2023-07-18] MEDS: CYANOCOBALAMIN 500 MCG TAB PO SCH (12:54)
[2023-07-18] MEDS: guaiFENesin ER 600 MG TAB PO SCH ×2 (12:54→20:47)
[2023-07-18] MEDS: BACLOFEN 10 MG TAB PO SCH ×2 (15:18→20:43)
[2023-07-18] MEDS: ADVAIR HFA 115/21MCG INHALER INH SCH ×2 (15:42→20:48)
[2023-07-18] MEDS: IPRATROPIUM 0.5MG/ALBUTEROL 2.5MG INH SOL UD 3ML (DUONEB) NEB PRN (18:00)
[2023-07-18] MEDS: CelecoXIB (CeleBREX) 100 MG CAP PO SCH (20:43)
[2023-07-18] MEDS: ZONISAMIDE PO SCH (20:46)
[2023-07-18] MEDS: ENOXAPARIN 40MG/0.4ML SYRINGE (J1650 PER 10MG) SC SCH (20:46)
[2023-07-18] MEDS: LATANOPROST 0.005% OPHTH SOLN 2.5 ML OU SCH (20:47)
[2023-07-18] MEDS: LACTIC ACID 12% LOTION 225 GM BTL TOP SCH (20:47)
[2023-07-18] MEDS: ACETYLCYSTEINE 20% 4 ML VIAL (200MG/ML) INH SCH (20:48)
[2023-07-18] MEDS ORDERED: MIRALAX *UNIT DOSE* 17GM PACKET PO SCH (21:00)
[2023-07-19] VITALS: BP 91/54; TEMP 99.4; O2SAT 92
[2023-07-19] MEDS: ACETAMINOPHEN 650MG ER TAB (TYLENOL ARTHRITIS) PO SCH ×5 (00:28→23:54)
[2023-07-19 04:00] VITALS: BP 94/51; TEMP 100.1; O2SAT 94
[2023-07-19 05:11] LABS: BASO % 0.1 % (0.0-1.0); HEMATOCRIT 30.5 % (42.0-52.0); HEMOGLOBIN 9.9 g/dl (13.5-17.5); LYMPH # 0.6 10^3/uL (1.5-5.0); LYMPH % 6.3 % (24.0-44.0); MEAN CORPUSCULAR HEMOGLOBIN 33.3 pg (27.0-33.0); MEAN CORPUSCULAR HGB CONC 32.5 g/dl (32.0-36.5); MEAN CORPUSCULAR VOLUME 102.7 fl (80.0-96.0); MONO # 0.7 10^3/uL (0.0-0.8); MONO % 7.2 % (2.0-8.0); NEUTROPHILS # 8.6 10^3/uL (1.5-8.5); NEUTROPHILS % 86.2 % (36.0-66.0); PLATELET COUNT, AUTOMATED 162 10^3/uL (150-450); RED BLOOD COUNT 2.97 10^6/uL (4.30-6.10)
[2023-07-19 05:32] LABS: BLOOD UREA NITROGEN 33 MG/DL (9-23); CALCIUM LEVEL 8.1 MG/DL (8.3-10.6); CARBON DIOXIDE LEVEL 32 MMOL/L (20-31); CHLORIDE LEVEL 103 MMOL/L (98-107); CREATININE FOR GFR 0.87 MG/DL (0.70-1.30); GLOMERULAR FILTRATION RATE > 60.0 (>49); GLUCOSE, FASTING 143 MG/DL (74-106); POTASSIUM SERUM 4.1 MMOL/L (3.5-5.1); SODIUM LEVEL 141 MMOL/L (136-145)
[2023-07-19] MEDS: LEVOTHYROXINE 25MCG TABLET (0.025MG) XX SCH (05:54)
[2023-07-19 08:00] VITALS: BP 106/69; TEMP 98.7; O2SAT 96
[2023-07-19] MEDS: POLYVINYL ALCOHOL OPHTH SOLN 15ML (LIQUITEARS) OU SCH ×4 (08:20→20:15)
[2023-07-19] MEDS ORDERED: PILL CUTTER 1 EACH XX PRN (08:20)
[2023-07-19] MEDS: PANTOPRAZOLE 40MG VIAL IV SCH (08:21)
[2023-07-19] MEDS: LACTIC ACID 12% LOTION 225 GM BTL TOP SCH ×2 (08:21→20:14)
[2023-07-19] MEDS: guaiFENesin ER 600 MG TAB PO SCH ×2 (08:22→20:17)
[2023-07-19] MEDS: FUROSEMIDE 20MG/2ML VIAL IV SCH (08:22)
[2023-07-19] MEDS: NYSTATIN 500,000U/5ML SUSP UDC SS SCH ×2 (08:22→20:16)
[2023-07-19] MEDS: BACLOFEN 10 MG TAB PO SCH ×3 (08:23→20:17)
[2023-07-19] MEDS: FOLIC ACID 1MG TAB PO SCH (08:23)
[2023-07-19] MEDS: CYANOCOBALAMIN 500 MCG TAB PO SCH (08:23)
[2023-07-19] MEDS: CelecoXIB (CeleBREX) 100 MG CAP PO SCH ×2 (08:24→20:17)
[2023-07-19] MEDS: SENOKOT S TAB PO SCH (08:39)
[2023-07-19] MEDS: ACETYLCYSTEINE 20% 4 ML VIAL (200MG/ML) INH SCH ×2 (08:49→19:04)
[2023-07-19] MEDS: ADVAIR HFA 115/21MCG INHALER INH SCH ×2 (08:49→19:03)
[2023-07-19] MEDS: IPRATROPIUM 0.5MG/ALBUTEROL 2.5MG INH SOL UD 3ML (DUONEB) NEB PRN (08:49)
[2023-07-19] MEDS ORDERED: MIRALAX *UNIT DOSE* 17GM PACKET PO PRN (08:55)
[2023-07-19] MEDS: DOCUSATE SODIUM 100MG CAPSULE PO SCH (09:00)
[2023-07-19] MEDS ORDERED: methylPREDNISolone 40MG 1ML VIAL IV SCH (09:00)
[2023-07-19] MEDS: RIZATRIPTAN BENZOATE 10 MG TAB PO PRN (09:24)
[2023-07-19] MEDS: predniSONE 20 MG TAB PO SCH ×2 (09:58→20:17)
[2023-07-19 12:00] VITALS: BP 127/74; TEMP 98.6; O2SAT 95
[2023-07-19] MEDS: DOXYCYCLINE HYCLATE 100MG TABLET PO SCH ×2 (12:21→20:17)
[2023-07-19] MEDS: ONDANSETRON 4MG TAB PO PRN (13:37)
[2023-07-19] MEDS: ALBUTEROL SULFATE 2.5MG/0.5ML INH NEB SOLN NEB SCH ×2 (15:00→19:04)
[2023-07-19 20:00] VITALS: BP 103/70; TEMP 98.4; O2SAT 95
[2023-07-19] MEDS: LATANOPROST 0.005% OPHTH SOLN 2.5 ML OU SCH (20:15)
[2023-07-19] MEDS: ENOXAPARIN 40MG/0.4ML SYRINGE (J1650 PER 10MG) SC SCH (20:16)
[2023-07-19] MEDS: ZONISAMIDE PO SCH (20:17)
[2023-07-20 04:00] VITALS: BP 97/54; TEMP 98.5; O2SAT 97
[2023-07-20 05:34] LABS: BLOOD UREA NITROGEN 35 MG/DL (9-23); CALCIUM LEVEL 8.5 MG/DL (8.3-10.6); CARBON DIOXIDE LEVEL 29 MMOL/L (20-31); CHLORIDE LEVEL 105 MMOL/L (98-107); CREATININE FOR GFR 0.89 MG/DL (0.70-1.30); GLOMERULAR FILTRATION RATE > 60.0 (>49); GLUCOSE, FASTING 115 MG/DL (74-106); POTASSIUM SERUM 4.5 MMOL/L (3.5-5.1); SODIUM LEVEL 141 MMOL/L (136-145)
[2023-07-20] MEDS: LEVOTHYROXINE 25MCG TABLET (0.025MG) XX SCH (05:37)
[2023-07-20] MEDS: ACETAMINOPHEN 650MG ER TAB (TYLENOL ARTHRITIS) PO SCH ×3 (05:37→17:38)
[2023-07-20] MEDS: ADVAIR HFA 115/21MCG INHALER INH SCH ×2 (07:15→19:10)
[2023-07-20] MEDS: ACETYLCYSTEINE 20% 4 ML VIAL (200MG/ML) INH SCH ×2 (07:15→19:10)
[2023-07-20] MEDS: ALBUTEROL SULFATE 2.5MG/0.5ML INH NEB SOLN NEB SCH ×2 (07:15→19:10)
[2023-07-20 08:00] VITALS: BP 118/70; TEMP 97.3; O2SAT 96
[2023-07-20] MEDS: CelecoXIB (CeleBREX) 100 MG CAP PO SCH ×2 (08:29→20:58)
[2023-07-20] MEDS: LACTIC ACID 12% LOTION 225 GM BTL TOP SCH ×2 (08:29→20:56)
[2023-07-20] MEDS: POLYVINYL ALCOHOL OPHTH SOLN 15ML (LIQUITEARS) OU SCH ×4 (08:29→20:56)
[2023-07-20] MEDS: DOXYCYCLINE HYCLATE 100MG TABLET PO SCH ×2 (08:30→20:58)
[2023-07-20] MEDS: FOLIC ACID 1MG TAB PO SCH (08:30)
[2023-07-20] MEDS: PANTOPRAZOLE 40MG TAB (PROTONIX) PO SCH (08:31)
[2023-07-20] MEDS: BACLOFEN 10 MG TAB PO SCH ×3 (08:31→20:58)
[2023-07-20] MEDS: FUROSEMIDE 40 MG TAB PO SCH (08:31)
[2023-07-20] MEDS: predniSONE 20 MG TAB PO SCH ×2 (08:31→20:58)
[2023-07-20] MEDS: CYANOCOBALAMIN 500 MCG TAB PO SCH (08:31)
[2023-07-20] MEDS: guaiFENesin ER 600 MG TAB PO SCH ×2 (08:32→20:58)
[2023-07-20] MEDS: NYSTATIN 500,000U/5ML SUSP UDC SS SCH ×2 (08:32→20:57)
[2023-07-20] MEDS: DOCUSATE SODIUM 100MG CAPSULE PO SCH (08:32)
[2023-07-20] MEDS: SENOKOT S TAB PO SCH (08:32)
[2023-07-20] MEDS ORDERED: DOXY100T PO (10:21)
[2023-07-20] MEDS ORDERED: PRED20TA PO (10:21)
[2023-07-20] MEDS: ONDANSETRON 4MG TAB PO PRN (10:45)
[2023-07-20 12:00] VITALS: BP 133/74; TEMP 98; O2SAT 93
[2023-07-20] MEDS: RIZATRIPTAN BENZOATE 10 MG TAB PO PRN (13:39)
[2023-07-20] MEDS: IPRATROPIUM 0.5MG/ALBUTEROL 2.5MG INH SOL UD 3ML (DUONEB) NEB PRN (15:24)
[2023-07-20 20:00] VITALS: BP 126/78; TEMP 98.2; O2SAT 96
[2023-07-20] MEDS: LATANOPROST 0.005% OPHTH SOLN 2.5 ML OU SCH (20:57)
[2023-07-20] MEDS: ENOXAPARIN 40MG/0.4ML SYRINGE (J1650 PER 10MG) SC SCH (20:57)
[2023-07-20] MEDS: ZONISAMIDE PO SCH (20:59)
[2023-07-20] MEDS ORDERED: AMITRIPTYLINE 25MG TABLET PO SCH (21:00)
[2023-07-21 04:00] VITALS: BP 113/58; TEMP 98.4; O2SAT 95
[2023-07-21] MEDS: LEVOTHYROXINE 25MCG TABLET (0.025MG) XX SCH (06:08)
[2023-07-21] MEDS: ACETAMINOPHEN 650MG ER TAB (TYLENOL ARTHRITIS) PO SCH ×2 (06:08)
[2023-07-21] MEDS: ALBUTEROL SULFATE 2.5MG/0.5ML INH NEB SOLN NEB SCH (07:33)
[2023-07-21] MEDS: ACETYLCYSTEINE 20% 4 ML VIAL (200MG/ML) INH SCH (07:33)
[2023-07-21] MEDS: ADVAIR HFA 115/21MCG INHALER INH SCH (07:33)
[2023-07-21 07:45] VITALS: BP 131/75; TEMP 98.3; O2SAT 97
[2023-07-21] MEDS: CelecoXIB (CeleBREX) 100 MG CAP PO SCH (08:12)
[2023-07-21] MEDS: FOLIC ACID 1MG TAB PO SCH (08:12)
[2023-07-21] MEDS: CYANOCOBALAMIN 500 MCG TAB PO SCH (08:12)
[2023-07-21] MEDS: DOXYCYCLINE HYCLATE 100MG TABLET PO SCH (08:12)
[2023-07-21] MEDS: FUROSEMIDE 40 MG TAB PO SCH (08:12)
[2023-07-21] MEDS: SENOKOT S TAB PO SCH (08:12)
[2023-07-21] MEDS: guaiFENesin ER 600 MG TAB PO SCH (08:12)
[2023-07-21] MEDS: NYSTATIN 500,000U/5ML SUSP UDC SS SCH (08:13)
[2023-07-21] MEDS: PANTOPRAZOLE 40MG TAB (PROTONIX) PO SCH (08:13)
[2023-07-21] MEDS: POLYVINYL ALCOHOL OPHTH SOLN 15ML (LIQUITEARS) OU SCH (08:13)
[2023-07-21] MEDS: LACTIC ACID 12% LOTION 225 GM BTL TOP SCH (08:13)
[2023-07-21] MEDS: BACLOFEN 10 MG TAB PO SCH (08:13)
[2023-07-21] MEDS: DOCUSATE SODIUM 100MG CAPSULE PO SCH (08:13)
[2023-07-21] MEDS: predniSONE 20 MG TAB PO SCH (08:13)
== END 2023-07-21 09:33 | DRG 917 ==
LOC: EDBD 07:57 → M ED 07:57 → M ED INP 11:32 → ENRESERV 12:26 → M ICU 13:20
PROVIDERS: ADMIT Internal Medicine Pulmonary Disease; ATTEND Internal Medicine Pulmonary Disease
PROC: 5A1935Z Respiratory Ventilation, Less than 24 Consecutive Hours (ICD-10-PCS; principal; 2023-07-17)
DX: T40.711A Poisoning by cannabis, accidental (unintentional), initial encounter (principal); G93.41 Metabolic encephalopathy; J96.90 Respiratory failure, unspecified, unspecified whether with hypoxia or hypercapnia; J44.1 Chronic obstructive pulmonary disease with (acute) exacerbation; N17.9 Acute kidney failure, unspecified; M62.82 Rhabdomyolysis; M51.36 Other intervertebral disc degeneration, lumbar region; K21.9 Gastro-esophageal reflux disease without esophagitis; F41.9 Anxiety disorder, unspecified; K59.09 Other constipation; E03.9 Hypothyroidism, unspecified; Z87.891 Personal history of nicotine dependence; D53.9 Nutritional anemia, unspecified; Z79.890 Hormone replacement therapy; Z79.52 Long term (current) use of systemic steroids; Z79.899 Other long term (current) drug therapy; Z88.0 Allergy status to penicillin; Z91.048 Other nonmedicinal substance allergy status; Z99.81 Dependence on supplemental oxygen

== ENCOUNTER → 2023-08-22 | Outpatient (CLI) | payer MEDICARE, MEDICAID ==
[~2023-08-22] MED LIST changes: +DOXY100T PO; +FERR32TA PO; +XALA0.007 OU
== END ==
LOC: M PLAIMG 15:16
PROVIDERS: ATTEND Physician Assistant Medical
DX: M53.3 Sacrococcygeal disorders, not elsewhere classified (principal)

== ENCOUNTER → 2023-09-01 | Outpatient (REF) | payer MEDICARE, MEDICAID ==
[2023-09-01 09:54] LABS: BASO % 0.5 % (0.0-1.0); EOS # 0.2 10^3/uL (0.0-0.5); EOS % 1.7 % (0.0-3.0); HEMOGLOBIN 11.2 g/dl (13.5-17.5); LYMPH # 1.6 10^3/uL (1.5-5.0); LYMPH % 17.8 % (24.0-44.0); MEAN CORPUSCULAR HGB CONC 32.9 g/dl (32.0-36.5); MEAN CORPUSCULAR VOLUME 103.3 fl (80.0-96.0); MONO % 11.1 % (2.0-8.0); NEUTROPHILS % 68.6 % (36.0-66.0); PLATELET COUNT, AUTOMATED 229 10^3/uL (150-450); RED BLOOD COUNT 3.29 10^6/uL (4.30-6.10); WHITE BLOOD COUNT 8.7 10^3/uL (4.0-10.0)
[2023-09-01 10:18] LABS: ALBUMIN 3.2 G/DL (3.2-5.2); ALKALINE PHOSPHATASE 91 U/L (46-116); ALT/SGPT 22 U/L (7.0-40); AST/SGOT 17 U/L (<34); BILIRUBIN,TOTAL 0.4 MG/DL (0.3-1.2); BLOOD UREA NITROGEN 22 MG/DL (9-23); CALCIUM LEVEL 8.7 MG/DL (8.3-10.6); CARBON DIOXIDE LEVEL 27 MMOL/L (20-31); CHLORIDE LEVEL 106 MMOL/L (98-107); CREATININE FOR GFR 0.73 MG/DL (0.70-1.30); GLOMERULAR FILTRATION RATE > 60.0 (>49); GLUCOSE, FASTING 93 MG/DL (74-106); SODIUM LEVEL 141 MMOL/L (136-145)
== END ==
PROVIDERS: ATTEND Physician Assistant Medical
DX: I10 Essential (primary) hypertension (principal)

== ENCOUNTER → 2023-09-14 | Outpatient (CLI) | payer MEDICARE, MEDICAID | LOC: M PLAIMG 12:51 | PROVIDERS: ATTEND Physician Assistant Medical | DX: M43.16 Spondylolisthesis, lumbar region (principal) ==

== ENCOUNTER 2023-09-20 13:39 | Emergency (ER) | payer MEDICARE, MEDICAID ==
[~2023-09-20] VITALS: Ht 180.3 cm; Wt 77.2 kg
[2023-09-20 14:33] LABS: BASO % 0.3 % (0.0-1.0); EOS # 0.1 10^3/uL (0.0-0.5); EOS % 0.9 % (0.0-3.0); HEMATOCRIT 40.2 % (42.0-52.0); HEMOGLOBIN 12.7 g/dl (13.5-17.5); LYMPH # 0.9 10^3/uL (1.5-5.0); LYMPH % 7.8 % (24.0-44.0); MEAN CORPUSCULAR HEMOGLOBIN 33.5 pg (27.0-33.0); MEAN CORPUSCULAR HGB CONC 31.6 g/dl (32.0-36.5); MEAN CORPUSCULAR VOLUME 106.1 fl (80.0-96.0); MONO # 0.9 10^3/uL (0.0-0.8); MONO % 7.7 % (2.0-8.0); NEUTROPHILS # 9.7 10^3/uL (1.5-8.5); PLATELET COUNT, AUTOMATED 252 10^3/uL (150-450); RED BLOOD COUNT 3.79 10^6/uL (4.30-6.10); WHITE BLOOD COUNT 11.7 10^3/uL (4.0-10.0)
[2023-09-20 14:49] LABS: BLOOD UREA NITROGEN 31 MG/DL (9-23); CALCIUM LEVEL 9.3 MG/DL (8.3-10.6); CARBON DIOXIDE LEVEL 31 MMOL/L (20-31); CHLORIDE LEVEL 102 MMOL/L (98-107); CREATININE FOR GFR 1.07 MG/DL (0.70-1.30); GLOMERULAR FILTRATION RATE > 60.0 (>49); GLUCOSE, FASTING 123 MG/DL (74-106); POTASSIUM SERUM 4.5 MMOL/L (3.5-5.1); SODIUM LEVEL 139 MMOL/L (136-145)
[2023-09-20] MEDS ORDERED: ONDA4TAB6 PO (17:12)
[2023-09-20 18:30] VITALS: BP 109/60; TEMP 98.4; O2SAT 99
== END 2023-09-20 18:36 | disposition home or self-care (01) ==
LOC: M ED 13:39
DX: K59.00 Constipation, unspecified (principal); R11.2 Nausea with vomiting, unspecified; Z88.0 Allergy status to penicillin

== ENCOUNTER → 2023-12-21 | Outpatient (REF) | payer MEDICARE, MEDICAID ==
[~2023-12-21] MED LIST changes: -MIRA1POW3 PO; +MIRA33506 PO; +ONDA4TAB6 PO
== END ==
LOC: M SFHCPLAZ 17:07
PROVIDERS: ATTEND Physician Assistant Medical
DX: J06.9 Acute upper respiratory infection, unspecified (principal)

== ENCOUNTER → 2023-12-22 | Outpatient (REF) | payer MEDICARE, MEDICAID ==
[2023-12-22 10:34] LABS: HEMATOCRIT 35.9 % (42.0-52.0)
[2023-12-22 10:36] LABS: BASO # 0.1 10^3/uL (0.0-0.2); BASO % 0.4 % (0.0-1.0); EOS # 0.2 10^3/uL (0.0-0.5); EOS % 1.4 % (0.0-3.0); HEMATOCRIT 35.8 % (42.0-52.0); HEMOGLOBIN 11.7 g/dl (13.5-17.5); LYMPH # 1.2 10^3/uL (1.5-5.0); LYMPH % 9.3 % (24.0-44.0); MEAN CORPUSCULAR HEMOGLOBIN 32.2 pg (27.0-33.0); MEAN CORPUSCULAR HGB CONC 32.7 g/dl (32.0-36.5); MEAN CORPUSCULAR VOLUME 98.6 fl (80.0-96.0); MONO # 1.5 10^3/uL (0.0-0.8); MONO % 11.5 % (2.0-8.0); NEUTROPHILS # 10.2 10^3/uL (1.5-8.5); NEUTROPHILS % 76.7 % (36.0-66.0); PLATELET COUNT, AUTOMATED 480 10^3/uL (150-450); RED BLOOD COUNT 3.63 10^6/uL (4.30-6.10); WHITE BLOOD COUNT 13.3 10^3/uL (4.0-10.0)
[2023-12-22 10:53] LABS: IRON (FE) 19 UG/DL (65-175)
[2023-12-22 10:55] LABS: ALBUMIN 2.7 G/DL (3.2-5.2); ALKALINE PHOSPHATASE 109 U/L (46-116); ALT/SGPT 37 U/L (7.0-40); AST/SGOT 38 U/L (<34); BILIRUBIN,TOTAL < 0.2 MG/DL (0.3-1.2); BLOOD UREA NITROGEN 47 MG/DL (9-23); CALCIUM LEVEL 8.7 MG/DL (8.3-10.6); CARBON DIOXIDE LEVEL 27 MMOL/L (20-31); CHLORIDE LEVEL 102 MMOL/L (98-107); CREATININE FOR GFR 1.14 MG/DL (0.70-1.30); GLOMERULAR FILTRATION RATE > 60.0 (>49); GLUCOSE, FASTING 132 MG/DL (74-106); POTASSIUM SERUM 3.9 MMOL/L (3.5-5.1); SODIUM LEVEL 137 MMOL/L (136-145); TOTAL PROTEIN 6.5 G/DL (5.7-8.2)
[2023-12-22 11:00] LABS: THYROID STIMULATING HORMONE 0.727 uIU/ML (0.55-4.78); TOTAL 25(OH) VITAMIN D 99.1 NG/ML (20.0-100.0)
[2023-12-22 11:01] LABS: FERRITIN 242.2 NG/ML (10.5-307.3); FREE T4 1.09 NG/DL (0.89-1.76); VITAMIN B12 LEVEL 1570 PG/ML (211-911)
[2023-12-23 16:46] LABS: PTH INTACT 24.8 PG/ML (18.5-88.0)
== END ==
PROVIDERS: ATTEND Physician Assistant Medical
DX: R05.8 Other specified cough (principal); E03.9 Hypothyroidism, unspecified; E61.1 Iron deficiency; E55.9 Vitamin D deficiency, unspecified; E53.8 Deficiency of other specified B group vitamins; Z79.899 Other long term (current) drug therapy

== ENCOUNTER 2023-12-30 22:17 | Emergency (ER) | payer MEDICARE, MEDICAID ==
[~2023-12-30] VITALS: Ht 185.4 cm; Wt 73.1 kg
[2023-12-31 00:11] LABS: ALBUMIN 2.7 G/DL (3.2-5.2); ALKALINE PHOSPHATASE 116 U/L (46-116); ALT/SGPT 25 U/L (7.0-40); AST/SGOT 24 U/L (<34); BILIRUBIN,DIRECT < 0.1 MG/DL (<0.4); BILIRUBIN,TOTAL 0.3 MG/DL (0.3-1.2); BLOOD UREA NITROGEN 32 MG/DL (9-23); CALCIUM LEVEL 8.9 MG/DL (8.3-10.6); CARBON DIOXIDE LEVEL 26 MMOL/L (20-31); CHLORIDE LEVEL 104 MMOL/L (98-107); CREATININE FOR GFR 0.81 MG/DL (0.70-1.30); GLOMERULAR FILTRATION RATE > 60.0 (>49); GLUCOSE, FASTING 110 MG/DL (74-106); POTASSIUM SERUM 4.9 MMOL/L (3.5-5.1); SODIUM LEVEL 137 MMOL/L (136-145); TOTAL PROTEIN 6.7 G/DL (5.7-8.2)
[2023-12-31 00:16] LABS: BASO # 0.1 10^3/uL (0.0-0.2); BASO % 0.4 % (0.0-1.0); EOS % 0.3 % (0.0-3.0); HEMATOCRIT 39.1 % (42.0-52.0); HEMOGLOBIN 12.5 g/dl (13.5-17.5); LYMPH # 1.1 10^3/uL (1.5-5.0); LYMPH % 8.1 % (24.0-44.0); MEAN CORPUSCULAR HEMOGLOBIN 32.4 pg (27.0-33.0); MEAN CORPUSCULAR VOLUME 101.3 fl (80.0-96.0); MONO # 1.2 10^3/uL (0.0-0.8); MONO % 8.5 % (2.0-8.0); NEUTROPHILS # 11.1 10^3/uL (1.5-8.5); NEUTROPHILS % 81.3 % (36.0-66.0); PLATELET COUNT, AUTOMATED 435 10^3/uL (150-450); RED BLOOD COUNT 3.86 10^6/uL (4.30-6.10); WHITE BLOOD COUNT 13.6 10^3/uL (4.0-10.0)
[2023-12-31 03:08] VITALS: BP 120/71; TEMP 96.8; O2SAT 96
== END 2023-12-31 03:23 | disposition home or self-care (01) ==
LOC: M ED 22:17
DX: J18.9 Pneumonia, unspecified organism (principal); J44.9 Chronic obstructive pulmonary disease, unspecified; E03.9 Hypothyroidism, unspecified; G43.909 Migraine, unspecified, not intractable, without status migrainosus; Z87.891 Personal history of nicotine dependence; Z88.0 Allergy status to penicillin; Z79.899 Other long term (current) drug therapy; Z79.52 Long term (current) use of systemic steroids; Z79.51 Long term (current) use of inhaled steroids; Z99.81 Dependence on supplemental oxygen

== ENCOUNTER → 2024-01-08 | Outpatient (CLI) | payer MEDICARE, MEDICAID ==
[~2024-01-08] MED LIST changes: -BENZ1LOZ9 MT; +BENZ1LOZ9 PO; +DICL100G10 TOP; +DIPH25TA4 PO; +DOXY-444 PO; +EMOL250L TOP; +ENSU-12 PO; -EQ HPAD EXT; +EQ HPAD TOP; -FLUT50SP33; +FLUT50SP33 NARES; +LORA1TAB23 PO; +ONDA-83 PO; +OYST500T10 PO; -SENN1TAB41 PO; +SENN1TAB85 PO; +TOPI100T9 PO; -[UNRECOGNIZED DRUG - CODE] EXT; +[UNRECOGNIZED DRUG - CODE] TOP
[2024-01-08 18:09] LABS: BASO # 0.1 10^3/uL (0.0-0.2); BASO % 0.5 % (0.0-1.0); EOS % 0.4 % (0.0-3.0); HEMOGLOBIN 11.5 g/dl (13.5-17.5); LYMPH # 0.8 10^3/uL (1.5-5.0); LYMPH % 7.7 % (24.0-44.0); MEAN CORPUSCULAR HEMOGLOBIN 32.1 pg (27.0-33.0); MEAN CORPUSCULAR HGB CONC 31.9 g/dl (32.0-36.5); MEAN CORPUSCULAR VOLUME 100.6 fl (80.0-96.0); MONO # 0.8 10^3/uL (0.0-0.8); MONO % 7.2 % (2.0-8.0); NEUTROPHILS # 9.1 10^3/uL (1.5-8.5); NEUTROPHILS % 83.7 % (36.0-66.0); PLATELET COUNT, AUTOMATED 291 10^3/uL (150-450); RED BLOOD COUNT 3.58 10^6/uL (4.30-6.10); WHITE BLOOD COUNT 10.8 10^3/uL (4.0-10.0)
== END ==
LOC: M PLAIMG 15:35
PROVIDERS: ATTEND Physician Assistant Medical
DX: R09.02 Hypoxemia (principal); J90 Pleural effusion, not elsewhere classified; J43.9 Emphysema, unspecified

== ENCOUNTER 2024-01-13 04:09 | Inpatient (IN) | payer MEDICARE, MEDICAID ==
[~2024-01-13] VITALS: Ht 177.8 cm; Wt 75.8 kg
[~2024-01-13 04:09] MED LIST changes: -DICL100G10 TOP; -DIPH25TA4 PO; -DOXY-444 PO; -EMOL250L TOP; -ENSU-12 PO; -LORA1TAB23 PO; -ONDA-83 PO; -OYST500T10 PO; -TOPI100T9 PO
[2024-01-13] MEDS: IPRATROPIUM 0.5MG/ALBUTEROL 2.5MG INH SOL UD 3ML (DUONEB) NEB PRN (05:01)
[2024-01-13 05:05] LABS: ABG BASE EXCESS 5.6 (-2.0-2.0); ABG HCO3 33.1 MMOL/L (22.0-26.0); ABG O2 SATURATION 95.4 % (95.0-99.0); ABG PARTIAL PRESSURE O2 80.3 mmHg (75.0-100.0); ABG STANDARD HCO3 29.5 MMOL/L. (22.0-26.0); ABG pH (ARTERIAL) 7.334 UNITS (7.350-7.450)
[2024-01-13 05:12] LABS: ABG PARTIAL PRESSURE CO2 63.6 mmHg (35.0-45.0)
[2024-01-13 05:13] VITALS: O2SAT 94
[2024-01-13 05:19] LABS: BASO % 0.3 % (0.0-1.0); EOS # 0.2 10^3/uL (0.0-0.5); EOS % 2.4 % (0.0-3.0); HEMATOCRIT 37.2 % (42.0-52.0); HEMOGLOBIN 11.5 g/dl (13.5-17.5); LYMPH # 1.5 10^3/uL (1.5-5.0); LYMPH % 15.2 % (24.0-44.0); MEAN CORPUSCULAR HEMOGLOBIN 32.1 pg (27.0-33.0); MEAN CORPUSCULAR HGB CONC 30.9 g/dl (32.0-36.5); MEAN CORPUSCULAR VOLUME 103.9 fl (80.0-96.0); MONO # 1.1 10^3/uL (0.0-0.8); MONO % 11.2 % (2.0-8.0); NEUTROPHILS # 6.8 10^3/uL (1.5-8.5); NEUTROPHILS % 70.5 % (36.0-66.0); PLATELET COUNT, AUTOMATED 286 10^3/uL (150-450); RED BLOOD COUNT 3.58 10^6/uL (4.30-6.10); WHITE BLOOD COUNT 9.7 10^3/uL (4.0-10.0)
[2024-01-13] MEDS ORDERED: ISOVUE-370 76% 100ML VIAL As Ordered ONE (06:14)
[2024-01-13 06:36] LABS: ETHYL ALCOHOL (ETHANOL) 0.005 % (0.000-0.010)
[2024-01-13 06:38] LABS: ALBUMIN 2.8 G/DL (3.2-5.2); ALKALINE PHOSPHATASE 118 U/L (46-116); ALT/SGPT 27 U/L (7.0-40); AST/SGOT 26 U/L (<34); BILIRUBIN,DIRECT < 0.1 MG/DL (<0.4); BILIRUBIN,TOTAL 0.2 MG/DL (0.3-1.2); BLOOD UREA NITROGEN 28 MG/DL (9-23); CALCIUM LEVEL 8.9 MG/DL (8.3-10.6); CARBON DIOXIDE LEVEL 33 MMOL/L (20-31); CHLORIDE LEVEL 103 MMOL/L (98-107); CK-MB VALUE MASS 5.8 NG/ML (<3.6); CPK CREATINE PHOSPHOKINASE 168 U/L (46-171); GLOMERULAR FILTRATION RATE 58.4 (>49); GLUCOSE, FASTING 111 MG/DL (74-106); MB/CK RELATIVE INDEX 3.45 (< OR =4); POTASSIUM SERUM 4.3 MMOL/L (3.5-5.1); SALICYLATE LEVEL < 3.0 MG/DL (<30); SODIUM LEVEL 138 MMOL/L (136-145); TOTAL PROTEIN 6.7 G/DL (5.7-8.2)
[2024-01-13 06:40] LABS: THYROID STIMULATING HORMONE 0.942 uIU/ML (0.55-4.78)
[2024-01-13 09:38] LABS: ABG HCO3 30.7 MMOL/L (22.0-26.0); ABG O2 SATURATION 96.5 % (95.0-99.0); ABG PARTIAL PRESSURE CO2 57.7 mmHg (35.0-45.0); ABG PARTIAL PRESSURE O2 89.5 mmHg (75.0-100.0); ABG TOTAL CO2 32.5 MMOL/L (23.0-31.0); ABG pH (ARTERIAL) 7.344 UNITS (7.350-7.450)
[2024-01-13] MEDS ORDERED: ONDA-83 PO (10:04)
[2024-01-13] MEDS ORDERED: DIPH25TA4 PO (10:04)
[2024-01-13] MEDS ORDERED: TOPI100T9 PO (10:04)
[2024-01-13] MEDS ORDERED: LORA1TAB23 PO (10:04)
[2024-01-13] MEDS ORDERED: DICL100G10 TOP (10:04)
[2024-01-13] MEDS ORDERED: OYST500T10 PO (10:04)
[2024-01-13] MEDS ORDERED: EMOL250L TOP (10:08)
[2024-01-13] MEDS ORDERED: ENSU-12 PO (10:08)
[2024-01-13] MEDS ORDERED: HOME MED LIST COMPLETE! XX SCH (10:10)
[2024-01-13] MEDS ORDERED: MED REC IN PROGRESS XX SCH (10:15)
[2024-01-13] MEDS: MOXIFLOXACIN HCL 400 MG in IV 1 EA IV ONE (10:31)
[2024-01-13] MEDS: NS 1,000 ML IV ONE ×3 (10:31→12:40)
[2024-01-13] MEDS: dexAMETHasone 20MG/5ML VIAL IV ONE (10:31)
[2024-01-13 12:00] VITALS: BP 114/58; TEMP 97.1; O2SAT 98
[2024-01-13 12:09] LABS: AMPHETAMINES LEVEL URINE NEGATIVE (NEGATIVE)
[2024-01-13 12:10] LABS: BARBITURATES URINE NEGATIVE (NEGATIVE); BENZODIAZEPINES URINE NEGATIVE (NEGATIVE); COCAINE METABOLITE URINE NEGATIVE (NEGATIVE); METHADONE URINE NEGATIVE (NEGATIVE); OPIATES URINE NEGATIVE (NEGATIVE); PHENCYCLIDINE URINE NEGATIVE (NEGATIVE)
[2024-01-13 12:14] LABS: CANNABINOIDS URINE POSITIVE (NEGATIVE)
[2024-01-13] MEDS: MIDODRINE 5 MG TAB PO ONE (12:25)
[2024-01-13] MEDS ORDERED: MOM 30ML SUSPENSION UDC PO PRN (15:45)
[2024-01-13] MEDS ORDERED: CEPACOL LOZENGE PO PRN (15:45)
[2024-01-13 16:00] VITALS: BP 102/59; TEMP 97.6; O2SAT 93
[2024-01-13] MEDS: LEVALBUTEROL 1.25MG 0.5ML CONCENTRATE NEB INH SCH (16:10)
[2024-01-13] MEDS: IPRATROPIUM 0.02% SOLN 0.5MG 2.5ML NEB INH SCH (16:10)
[2024-01-13] MEDS: LEVOTHYROXINE 25MCG TABLET (0.025MG) PO SCH (17:28)
[2024-01-13] MEDS: methylPREDNISolone 125MG 2ML VIAL IV SCH (17:50)
[2024-01-13] MEDS: CYANOCOBALAMIN 500 MCG TAB PO SCH (17:51)
[2024-01-13] MEDS: DOCUSATE SODIUM 100MG CAPSULE PO SCH (17:51)
[2024-01-13] MEDS: FOLIC ACID 1MG TAB PO SCH (17:51)
[2024-01-13] MEDS: PANTOPRAZOLE 40MG TAB (PROTONIX) PO SCH (17:51)
[2024-01-13 19:49] VITALS: BP 110/62; TEMP 98.2; O2SAT 91
[2024-01-13] MEDS: CelecoXIB (CeleBREX) 100 MG CAP PO SCH (20:26)
[2024-01-13] MEDS: ACETAMINOPHEN 650MG ER TAB (TYLENOL ARTHRITIS) PO SCH (20:26)
[2024-01-13] MEDS: LATANOPROST 0.005% OPHTH SOLN 2.5 ML OU SCH (20:26)
[2024-01-13] MEDS: CETIRIZINE (ZyrTEC) 10 MG TAB PO SCH (20:26)
[2024-01-13 23:31] VITALS: BP 111/58; TEMP 98.5; O2SAT 90
[2024-01-14] MEDS: ALBUTEROL 90 MCG/ACT 8GM HFA INHALER INH PRN (01:59)
[2024-01-14 03:53] VITALS: BP 103/56; TEMP 97.9; O2SAT 98
[2024-01-14] MEDS: MOXIFLOXACIN 400 MG TAB PO SCH (05:43)
[2024-01-14 06:09] LABS: HEMATOCRIT 27.8 % (42.0-52.0); MEAN CORPUSCULAR HEMOGLOBIN 32.4 pg (27.0-33.0); MEAN CORPUSCULAR HGB CONC 31.7 g/dl (32.0-36.5); MEAN CORPUSCULAR VOLUME 102.2 fl (80.0-96.0); PLATELET COUNT, AUTOMATED 256 10^3/uL (150-450); RED BLOOD COUNT 2.72 10^6/uL (4.30-6.10); WHITE BLOOD COUNT 10.9 10^3/uL (4.0-10.0)
[2024-01-14 06:12] LABS: HEMOGLOBIN 8.8 g/dl (13.5-17.5)
[2024-01-14 06:14] LABS: BLOOD UREA NITROGEN 31 MG/DL (9-23); CALCIUM LEVEL 8.4 MG/DL (8.3-10.6); CARBON DIOXIDE LEVEL 29 MMOL/L (20-31); CHLORIDE LEVEL 107 MMOL/L (98-107); CREATININE FOR GFR 0.85 MG/DL (0.70-1.30); GLOMERULAR FILTRATION RATE > 60.0 (>49); GLUCOSE, FASTING 148 MG/DL (74-106); POTASSIUM SERUM 4.2 MMOL/L (3.5-5.1); SODIUM LEVEL 141 MMOL/L (136-145)
[2024-01-14 07:51] LABS: ABG BASE EXCESS 3.9 (-2.0-2.0); ABG HCO3 28.6 MMOL/L (22.0-26.0); ABG O2 SATURATION 94.3 % (95.0-99.0); ABG PARTIAL PRESSURE O2 69.7 mmHg (75.0-100.0); ABG STANDARD HCO3 27.9 MMOL/L. (22.0-26.0); ABG pH (ARTERIAL) 7.431 UNITS (7.350-7.450)
[2024-01-14] MEDS: MIDODRINE 5 MG TAB PO ONE (08:00)
[2024-01-14 08:18] VITALS: BP 113/65; TEMP 98.1; O2SAT 92
[2024-01-14] MEDS: FERROUS GLUCONATE 324 MG TAB PO SCH (11:00)
[2024-01-14 14:00] VITALS: BP 122/66; TEMP 99; O2SAT 93
[2024-01-14] MEDS: ALBUTEROL SULFATE 2.5MG/0.5ML INH NEB SOLN INH PRN (14:09)
[2024-01-14] MEDS: predniSONE 20 MG TAB PO SCH (20:54)
[2024-01-14 21:55] VITALS: BP 128/77; TEMP 98.8; O2SAT 92
[2024-01-14] MEDS: PINK BISMUTH SUSP 524MG/30ML ORAL SYRINGE PO PRN (22:09)
[2024-01-15 06:00] VITALS: BP 114/60; TEMP 98.2; O2SAT 92
[2024-01-15] MEDS ORDERED: ALBU8.5H INH (06:32)
[2024-01-15] MEDS ORDERED: PRED20TA PO (06:32)
[2024-01-15] MEDS ORDERED: LEVO1TAB40 PO (06:34)
[2024-01-15] MEDS ORDERED: DOXY-444 PO (06:34)
[2024-01-15] MEDS ORDERED: PRED10TA2 PO (06:34)
[2024-01-15 06:52] LABS: HEMATOCRIT 32.8 % (42.0-52.0); HEMOGLOBIN 10.6 g/dl (13.5-17.5); MEAN CORPUSCULAR HEMOGLOBIN 32.6 pg (27.0-33.0); MEAN CORPUSCULAR HGB CONC 32.3 g/dl (32.0-36.5); MEAN CORPUSCULAR VOLUME 100.9 fl (80.0-96.0); PLATELET COUNT, AUTOMATED 299 10^3/uL (150-450); RED BLOOD COUNT 3.25 10^6/uL (4.30-6.10); WHITE BLOOD COUNT 14.4 10^3/uL (4.0-10.0)
[2024-01-15 07:28] LABS: BLOOD UREA NITROGEN 33 MG/DL (9-23); CALCIUM LEVEL 8.3 MG/DL (8.3-10.6); CARBON DIOXIDE LEVEL 28 MMOL/L (20-31); CHLORIDE LEVEL 105 MMOL/L (98-107); CREATININE FOR GFR 0.81 MG/DL (0.70-1.30); GLOMERULAR FILTRATION RATE > 60.0 (>49); GLUCOSE, FASTING 144 MG/DL (74-106); POTASSIUM SERUM 4.3 MMOL/L (3.5-5.1); SODIUM LEVEL 139 MMOL/L (136-145)
[2024-01-15] MEDS: ONDANSETRON 4MG 2ML VIAL IV PRN (09:30)
== END 2024-01-15 11:55 | disposition home health service (06) | DRG 871 ==
LOC: M ED 04:09 → EDBD 04:09 → M ED INP 10:38 → M PCU 12:04 → M MS5PR 01-14 11:28
PROVIDERS: ADMIT General Practice; ATTEND General Practice
DX: A41.9 Sepsis, unspecified organism (principal); J96.22 Acute and chronic respiratory failure with hypercapnia; J69.0 Pneumonitis due to inhalation of food and vomit; G92.8 Other toxic encephalopathy; J96.11 Chronic respiratory failure with hypoxia; J44.1 Chronic obstructive pulmonary disease with (acute) exacerbation; J44.0 Chronic obstructive pulmonary disease with (acute) lower respiratory infection; E87.29 Other acidosis; E03.9 Hypothyroidism, unspecified; G89.29 Other chronic pain; Z99.81 Dependence on supplemental oxygen; M51.36 Other intervertebral disc degeneration, lumbar region; K59.09 Other constipation; E55.9 Vitamin D deficiency, unspecified; F43.10 Post-traumatic stress disorder, unspecified; F40.10 Social phobia, unspecified; F41.9 Anxiety disorder, unspecified; R26.89 Other abnormalities of gait and mobility; F32.A Depression, unspecified; G43.909 Migraine, unspecified, not intractable, without status migrainosus; Z87.891 Personal history of nicotine dependence; Z79.890 Hormone replacement therapy; Z79.52 Long term (current) use of systemic steroids; Z79.899 Other long term (current) drug therapy; Z88.0 Allergy status to penicillin

== ENCOUNTER → 2024-01-17 | Outpatient (CLI) | payer MEDICARE, MEDICAID ==
[~2024-01-17] MED LIST changes: +DICL100G10 TOP; +DIPH25TA4 PO; +DOXY-444 PO; +EMOL250L TOP; +ENSU-12 PO; +LORA1TAB23 PO; +ONDA-83 PO; +OYST500T10 PO; +TOPI100T9 PO
[2024-01-17 14:50] LABS: BASO % 0.1 % (0.0-1.0); EOS # 0.1 10^3/uL (0.0-0.5); EOS % 1.3 % (0.0-3.0); HEMATOCRIT 38.6 % (42.0-52.0); HEMOGLOBIN 12.1 g/dl (13.5-17.5); LYMPH % 18.4 % (24.0-44.0); MEAN CORPUSCULAR HEMOGLOBIN 32.4 pg (27.0-33.0); MEAN CORPUSCULAR HGB CONC 31.3 g/dl (32.0-36.5); MEAN CORPUSCULAR VOLUME 103.5 fl (80.0-96.0); MONO % 9.8 % (2.0-8.0); NEUTROPHILS # 7.4 10^3/uL (1.5-8.5); NEUTROPHILS % 69.9 % (36.0-66.0); PLATELET COUNT, AUTOMATED 309 10^3/uL (150-450); RED BLOOD COUNT 3.73 10^6/uL (4.30-6.10); WHITE BLOOD COUNT 10.6 10^3/uL (4.0-10.0)
[2024-01-17 15:17] LABS: ALBUMIN 2.8 G/DL (3.2-5.2); ALKALINE PHOSPHATASE 107 U/L (46-116); ALT/SGPT 50 U/L (7.0-40); AST/SGOT 27 U/L (<34); BILIRUBIN,TOTAL 0.2 MG/DL (0.3-1.2); BLOOD UREA NITROGEN 35 MG/DL (9-23); CALCIUM LEVEL 8.3 MG/DL (8.3-10.6); CARBON DIOXIDE LEVEL 28 MMOL/L (20-31); CHLORIDE LEVEL 104 MMOL/L (98-107); CREATININE FOR GFR 1.07 MG/DL (0.70-1.30); GLOMERULAR FILTRATION RATE > 60.0 (>49); GLUCOSE, FASTING 84 MG/DL (74-106); IRON (FE) 41 UG/DL (65-175); POTASSIUM SERUM 3.9 MMOL/L (3.5-5.1); SODIUM LEVEL 138 MMOL/L (136-145); TOTAL PROTEIN 6.3 G/DL (5.7-8.2)
[2024-01-17 15:21] LABS: FERRITIN 72.1 NG/ML (10.5-307.3); THYROID STIMULATING HORMONE 2.064 uIU/ML (0.55-4.78)
[2024-01-17 15:24] LABS: FREE T4 1.14 NG/DL (0.89-1.76)
== END ==
LOC: M PLALAB 10:17
PROVIDERS: ATTEND Physician Assistant Medical
DX: R91.8 Other nonspecific abnormal finding of lung field (principal); J96.12 Chronic respiratory failure with hypercapnia; K21.9 Gastro-esophageal reflux disease without esophagitis; E55.9 Vitamin D deficiency, unspecified; E03.9 Hypothyroidism, unspecified; D69.6 Thrombocytopenia, unspecified

== ENCOUNTER → 2024-02-21 | Outpatient (REF) | payer MEDICARE, MEDICAID ==
[2024-02-21 12:08] LABS: BASO % 0.5 % (0.0-1.0); EOS # 0.2 10^3/uL (0.0-0.5); EOS % 1.9 % (0.0-3.0); HEMATOCRIT 39.4 % (42.0-52.0); HEMOGLOBIN 12.3 g/dl (13.5-17.5); LYMPH # 1.5 10^3/uL (1.5-5.0); LYMPH % 17.5 % (24.0-44.0); MEAN CORPUSCULAR HEMOGLOBIN 32.6 pg (27.0-33.0); MEAN CORPUSCULAR HGB CONC 31.2 g/dl (32.0-36.5); MEAN CORPUSCULAR VOLUME 104.5 fl (80.0-96.0); MONO # 1.1 10^3/uL (0.0-0.8); MONO % 13.8 % (2.0-8.0); NEUTROPHILS # 5.5 10^3/uL (1.5-8.5); NEUTROPHILS % 65.9 % (36.0-66.0); PLATELET COUNT, AUTOMATED 211 10^3/uL (150-450); RED BLOOD COUNT 3.77 10^6/uL (4.30-6.10); WHITE BLOOD COUNT 8.3 10^3/uL (4.0-10.0)
== END ==
PROVIDERS: ATTEND Physician Assistant Medical
DX: E61.1 Iron deficiency (principal)

== ENCOUNTER 2024-03-02 15:19 | Emergency (ER) | payer MEDICARE, MEDICAID ==
[~2024-03-02] VITALS: Ht 180.3 cm; Wt 71.4 kg
[2024-03-02] MEDS: NS 500 ML IV ONE (15:58)
[2024-03-02 16:06] LABS: BASO # 0.1 10^3/uL (0.0-0.2); BASO % 0.5 % (0.0-1.0); EOS # 0.1 10^3/uL (0.0-0.5); HEMATOCRIT 40.4 % (42.0-52.0); HEMOGLOBIN 13.1 g/dl (13.5-17.5); LYMPH # 0.7 10^3/uL (1.5-5.0); LYMPH % 5.6 % (24.0-44.0); MEAN CORPUSCULAR HEMOGLOBIN 32.7 pg (27.0-33.0); MEAN CORPUSCULAR HGB CONC 32.4 g/dl (32.0-36.5); MEAN CORPUSCULAR VOLUME 100.7 fl (80.0-96.0); MONO % 7.9 % (2.0-8.0); NEUTROPHILS # 10.2 10^3/uL (1.5-8.5); NEUTROPHILS % 84.6 % (36.0-66.0); PLATELET COUNT, AUTOMATED 220 10^3/uL (150-450); RED BLOOD COUNT 4.01 10^6/uL (4.30-6.10)
[2024-03-02 16:23] LABS: CK-MB VALUE MASS 2.7 NG/ML (<3.6)
[2024-03-02 16:26] LABS: LIPASE 25 U/L (12-53)
[2024-03-02 16:29] LABS: FREE T4 1.11 NG/DL (0.89-1.76)
[2024-03-02 16:30] LABS: THYROID STIMULATING HORMONE 1.376 uIU/ML (0.55-4.78)
[2024-03-02 16:33] LABS: ALBUMIN 3.8 G/DL (3.2-5.2); ALKALINE PHOSPHATASE 108 U/L (46-116); ALT/SGPT 18 U/L (7.0-40); AST/SGOT 19 U/L (<34); BILIRUBIN,DIRECT 0.1 MG/DL (<0.4); BILIRUBIN,TOTAL 0.5 MG/DL (0.3-1.2); BLOOD UREA NITROGEN 30 MG/DL (9-23); CALCIUM LEVEL 9.4 MG/DL (8.3-10.6); CARBON DIOXIDE LEVEL 30 MMOL/L (20-31); CHLORIDE LEVEL 102 MMOL/L (98-107); CPK CREATINE PHOSPHOKINASE 97 U/L (46-171); CREATININE FOR GFR 1.02 MG/DL (0.70-1.30); GLOMERULAR FILTRATION RATE > 60.0 (>49); GLUCOSE, FASTING 110 MG/DL (74-106); MB/CK RELATIVE INDEX 2.78 (< OR =4); POTASSIUM SERUM 4.1 MMOL/L (3.5-5.1); SODIUM LEVEL 141 MMOL/L (136-145); TOTAL PROTEIN 6.9 G/DL (5.7-8.2)
[2024-03-02] MEDS ORDERED: ISOVUE-370 76% 100ML VIAL As Ordered ONE (16:46)
[2024-03-02 17:24] LABS: CK-MB VALUE MASS 2.2 NG/ML (<3.6)
[2024-03-02 17:27] LABS: MB/CK RELATIVE INDEX 2.03 (< OR =4)
[2024-03-02] MEDS: IPRATROPIUM 0.5MG/ALBUTEROL 2.5MG INH SOL UD 3ML (DUONEB) NEB ONE (17:35)
[2024-03-02] MEDS: ALBUTEROL SULFATE 2.5MG/0.5ML INH NEB SOLN INH ONE (17:35)
[2024-03-02] MEDS ORDERED: MOXI400T11 PO (17:35)
[2024-03-02] MEDS ORDERED: PRED10TA2 PO (17:36)
[2024-03-02] MEDS: methylPREDNISolone 125MG 2ML VIAL IV ONE (17:41)
[2024-03-02] MEDS: MOXIFLOXACIN HCL 400 MG in IV 1 EA IV ONE (17:52)
[2024-03-02 18:00] LABS: ABG BASE EXCESS 2.9 (-2.0-2.0); ABG HCO3 28.7 MMOL/L (22.0-26.0); ABG O2 SATURATION 97.7 % (95.0-99.0); ABG PARTIAL PRESSURE CO2 49.1 mmHg (35.0-45.0); ABG PARTIAL PRESSURE O2 102.7 mmHg (75.0-100.0); ABG TOTAL CO2 30.2 MMOL/L (23.0-31.0); ABG pH (ARTERIAL) 7.384 UNITS (7.350-7.450)
[2024-03-02 19:16] VITALS: BP 117/61; TEMP 97.9; O2SAT 95
== END 2024-03-02 19:26 | disposition home or self-care (01) ==
LOC: M ED 15:19
DX: J44.1 Chronic obstructive pulmonary disease with (acute) exacerbation (principal); J18.9 Pneumonia, unspecified organism; R91.8 Other nonspecific abnormal finding of lung field; F43.10 Post-traumatic stress disorder, unspecified; F17.210 Nicotine dependence, cigarettes, uncomplicated; F12.10 Cannabis abuse, uncomplicated; Z88.0 Allergy status to penicillin; Z91.09 Other allergy status, other than to drugs and biological substances; Z79.899 Other long term (current) drug therapy; Z79.51 Long term (current) use of inhaled steroids; Z79.1 Long term (current) use of non-steroidal anti-inflammatories (NSAID); Z79.52 Long term (current) use of systemic steroids
CPT/HCPCS: 36600; 71045; 71275; 80047; 80048; 80076; 82550; 82553; 82803; 83690; 84439; 84443; 84484; 85025; 87070; 87205; 87486; 87581; 87633; 87798; 93005; 93041; 94640; 94760; 96361; 96365; 96366; 96374; 99285; J2280; J2919; Q9967

== ENCOUNTER → 2024-03-11 | Outpatient (CLI) | payer MEDICARE, MEDICAID ==
[~2024-03-11] MED LIST changes: +DOXY-440 PO; -DOXY-444 PO; +MOXI400T11 PO
[2024-03-11 17:41] LABS: BASO % 0.2 % (0.0-1.0); EOS % 0.1 % (0.0-3.0); HEMATOCRIT 37.1 % (42.0-52.0); HEMOGLOBIN 11.6 g/dl (13.5-17.5); LYMPH # 0.4 10^3/uL (1.5-5.0); LYMPH % 4.6 % (24.0-44.0); MEAN CORPUSCULAR HGB CONC 31.3 g/dl (32.0-36.5); MEAN CORPUSCULAR VOLUME 105.7 fl (80.0-96.0); MONO # 0.3 10^3/uL (0.0-0.8); MONO % 3.6 % (2.0-8.0); NEUTROPHILS # 8.6 10^3/uL (1.5-8.5); NEUTROPHILS % 91.1 % (36.0-66.0); PLATELET COUNT, AUTOMATED 236 10^3/uL (150-450); RED BLOOD COUNT 3.51 10^6/uL (4.30-6.10); WHITE BLOOD COUNT 9.5 10^3/uL (4.0-10.0)
[2024-03-11 17:53] LABS: ERYTHROCYTE SEDIMENTATION RATE 41 mm/hr (0-20)
== END ==
LOC: M PLALAB 14:50
PROVIDERS: ATTEND Physician Assistant Medical
DX: J18.9 Pneumonia, unspecified organism (principal)

== ENCOUNTER 2024-04-07 15:56 | Inpatient (IN) | payer MEDICARE, MEDICAID ==
[~2024-04-07] VITALS: Ht 177.8 cm; Wt 71.0 kg
[2024-04-07] MEDS: LATANOPROST 0.005% OPHTH SOLN 2.5 ML OU SCH (02:30)
[2024-04-07] MEDS: prednisoLONE ACET 1% OPHTH SUSP 5ML OU SCH (02:30)
[~2024-04-07 15:56] MED LIST changes: +ONDA-282 PO; -ONDA4TAB6 PO
[2024-04-07] MEDS: ALBUTEROL SULFATE 2.5MG/0.5ML INH NEB SOLN INH ONE (16:31)
[2024-04-07] MEDS: IPRATROPIUM 0.5MG/ALBUTEROL 2.5MG INH SOL UD 3ML (DUONEB) NEB ONE (16:31)
[2024-04-07 17:01] LABS: VENOUS BASE EXCESS 3.7 (-2.0-2.0); VENOUS HCO3 30.9 MMOL/L (23.0-27.0); VENOUS O2 SATURATION 63.2 % (60.0-80.0); VENOUS PARTIAL PRESSURE CO2 58.2 mmHg (38.0-50.0); VENOUS PARTIAL PRESSURE O2 34.3 mmHg (30.0-50.0); VENOUS PH 7.343 UNITS (7.330-7.430); VENOUS TOTAL CO2 32.7 MMOL/L (24.0-28.0)
[2024-04-07 17:10] LABS: BASO % 0.3 % (0.0-1.0); EOS # 0.1 10^3/uL (0.0-0.5); EOS % 0.8 % (0.0-3.0); HEMOGLOBIN 12.5 g/dl (13.5-17.5); LYMPH # 1.1 10^3/uL (1.5-5.0); LYMPH % 8.7 % (24.0-44.0); MEAN CORPUSCULAR HEMOGLOBIN 33.3 pg (27.0-33.0); MEAN CORPUSCULAR HGB CONC 32.1 g/dl (32.0-36.5); MONO # 0.9 10^3/uL (0.0-0.8); MONO % 7.5 % (2.0-8.0); NEUTROPHILS % 82.3 % (36.0-66.0); PLATELET COUNT, AUTOMATED 310 10^3/uL (150-450); RED BLOOD COUNT 3.75 10^6/uL (4.30-6.10); WHITE BLOOD COUNT 12.2 10^3/uL (4.0-10.0)
[2024-04-07] MEDS: MOXIFLOXACIN HCL 400 MG in IV 1 EA IV ONE (17:19)
[2024-04-07] MEDS: NS 2,270 ML in IV 1 EA IV ONE (17:19)
[2024-04-07 17:28] LABS: ALBUMIN 2.9 G/DL (3.2-5.2); ALKALINE PHOSPHATASE 106 U/L (46-116); ALT/SGPT 26 U/L (7.0-40); AST/SGOT 25 U/L (<34); BILIRUBIN,DIRECT 0.1 MG/DL (<0.4); BILIRUBIN,TOTAL 0.5 MG/DL (0.3-1.2); BLOOD UREA NITROGEN 26 MG/DL (9-23); CALCIUM LEVEL 9.1 MG/DL (8.3-10.6); CARBON DIOXIDE LEVEL 33 MMOL/L (20-31); CHLORIDE LEVEL 101 MMOL/L (98-107); CK-MB VALUE MASS < 1.0 NG/ML (<3.6); CPK CREATINE PHOSPHOKINASE 68 U/L (46-171); CREATININE FOR GFR 0.83 MG/DL (0.70-1.30); GLOMERULAR FILTRATION RATE > 60.0 (>49); GLUCOSE, FASTING 138 MG/DL (74-106); MB/CK RELATIVE INDEX 1.47 (< OR =4); POTASSIUM SERUM 3.5 MMOL/L (3.5-5.1); SODIUM LEVEL 141 MMOL/L (136-145); TOTAL PROTEIN 6.8 G/DL (5.7-8.2)
[2024-04-07 17:30] LABS: THYROID STIMULATING HORMONE 1.176 uIU/ML (0.55-4.78)
[2024-04-07] MEDS: ACETAMINOPHEN TAB 650MG DOSE (2X325MG) PO ONE (17:32)
[2024-04-07 17:39] LABS: PROCALCITONIN 1.19 ng/ml
[2024-04-07] MEDS ORDERED: NS 1,000 ML IV ONE (18:00)
[2024-04-07] MEDS ORDERED: PREDOPD OU (18:11)
[2024-04-07] MEDS ORDERED: BACL1TAB9 PO (18:11)
[2024-04-07] MEDS: guaiFENesin ER TABLET 600 MG TAB PO SCH (18:12)
[2024-04-07] MEDS ORDERED: HOME MED LIST COMPLETE! XX SCH (18:15)
[2024-04-07] MEDS: AZITHROMYCIN 250MG TABLET PO ONE (18:27)
[2024-04-07] MEDS: IPRATROPIUM 0.02% SOLN 0.5MG 2.5ML NEB INH SCH (18:57)
[2024-04-07] MEDS ORDERED: CEPACOL LOZENGE PO PRN (19:05)
[2024-04-07] MEDS ORDERED: MOM 30ML SUSPENSION UDC PO PRN (19:05)
[2024-04-07] MEDS ORDERED: PILL CUTTER 1 EACH XX PRN (19:25)
[2024-04-07] MEDS: RIZATRIPTAN BENZOATE 10 MG TAB PO PRN (19:58)
[2024-04-07] MEDS: LEVALBUTEROL 1.25MG 0.5ML CONCENTRATE NEB INH SCH (20:00)
[2024-04-07 20:50] VITALS: BP 104/69; TEMP 99.9; O2SAT 89
[2024-04-07] MEDS: BACLOFEN 10 MG TAB PO SCH (22:08)
[2024-04-07] MEDS: GABAPENTIN 300 MG CAP PO SCH (22:09)
[2024-04-07] MEDS: AMITRIPTYLINE 25MG TABLET PO SCH (22:10)
[2024-04-07] MEDS: CETIRIZINE (ZyrTEC) 10 MG TAB PO SCH (22:10)
[2024-04-07] MEDS: HEPARIN SOD (PORCINE) 5000UNITS/ML 1ML VIAL/SYRINGE SQ SCH (22:12)
[2024-04-07 22:21] VITALS: O2SAT 86
[2024-04-07] MEDS: ERTAPENEM SODIUM 1 GM in NS MINI-BAG PLUS 50 ML IV SCH (22:21)
[2024-04-07 22:27] VITALS: BP 101/65; O2SAT 90
[2024-04-07] MEDS: NS 500 ML IV ONE (23:17)
[2024-04-07 23:50] VITALS: BP 101/67; TEMP 100.2; O2SAT 91
[2024-04-08] VITALS (19 sets, daily range): BP systolic 101–119; BP diastolic 66–71; TEMP 98–100.4; O2SAT 75–97
[2024-04-08] MEDS: LEVALBUTEROL 1.25MG 0.5ML CONCENTRATE NEB INH PRN (04:36)
[2024-04-08] MEDS: LEVOTHYROXINE 25MCG TABLET (0.025MG) PO SCH (06:16)
[2024-04-08] MEDS: TIOTROPIUM INHALER/CAPSULE (SPIRIVA) INH SCH (07:11)
[2024-04-08] MEDS: AZITHROMYCIN 250MG TABLET PO SCH (08:55)
[2024-04-08] MEDS: PANTOPRAZOLE 40MG TAB (PROTONIX) PO SCH (08:56)
[2024-04-08] MEDS: predniSONE 10MG TAB PO SCH (08:56)
[2024-04-08] MEDS: FOLIC ACID 1MG TAB PO SCH (08:56)
[2024-04-08] MEDS: DOCUSATE SODIUM 100MG CAPSULE PO SCH (08:56)
[2024-04-08] MEDS: CYANOCOBALAMIN 500 MCG TAB PO SCH (08:57)
[2024-04-08] MEDS: ACETAMINOPHEN TAB 650MG DOSE (2X325MG) PO PRN (09:03)
[2024-04-08] MEDS: IBUPROFEN 400MG TAB PO PRN (09:03)
[2024-04-08] MEDS: MOM 30ML SUSPENSION UDC PO PRN (09:03)
[2024-04-08] MEDS: guaiFENesin ER TABLET 600 MG TAB PO SCH (09:04)
[2024-04-08] MEDS ORDERED: ACETAMINOPHEN *IV* 1,000 MG in IV 1 EA IV ONE (09:10)
[2024-04-08] MEDS: NS 500 ML IV ONE (10:14)
[2024-04-08] MEDS: ONDANSETRON 4MG 2ML VIAL IV ONE (10:14)
[2024-04-08] MEDS: MOXIFLOXACIN HCL 400 MG in IV 1 EA IV SCH (16:43)
[2024-04-08] MEDS ORDERED: MOXIFLOXACIN HCL 400 MG in IV 1 EA IV SCH (17:00)
[2024-04-09 04:00] VITALS: BP 113/76; TEMP 98.8; O2SAT 89
[2024-04-09 08:00] VITALS: BP 114/77; TEMP 99; O2SAT 92
[2024-04-09] MEDS: FERROUS GLUCONATE 324 MG TAB PO SCH (08:20)
[2024-04-09] MEDS: ONDANSETRON 4MG 2ML VIAL IV PRN (08:26)
[2024-04-09] MEDS: SENOKOT S TAB PO PRN (08:26)
[2024-04-09 09:29] VITALS: TEMP 101.4
[2024-04-09 09:50] LABS: BASO # 0.1 10^3/uL (0.0-0.2); BASO % 0.5 % (0.0-1.0); EOS # 0.2 10^3/uL (0.0-0.5); EOS % 1.6 % (0.0-3.0); HEMATOCRIT 40.4 % (42.0-52.0); HEMOGLOBIN 12.5 g/dl (13.5-17.5); LYMPH # 1.6 10^3/uL (1.5-5.0); LYMPH % 12.3 % (24.0-44.0); MEAN CORPUSCULAR HEMOGLOBIN 32.3 pg (27.0-33.0); MEAN CORPUSCULAR HGB CONC 30.9 g/dl (32.0-36.5); MEAN CORPUSCULAR VOLUME 104.4 fl (80.0-96.0); MONO # 1.7 10^3/uL (0.0-0.8); MONO % 13.9 % (2.0-8.0); NEUTROPHILS # 8.9 10^3/uL (1.5-8.5); NEUTROPHILS % 71.1 % (36.0-66.0); PLATELET COUNT, AUTOMATED 287 10^3/uL (150-450); RED BLOOD COUNT 3.87 10^6/uL (4.30-6.10); WHITE BLOOD COUNT 12.6 10^3/uL (4.0-10.0)
[2024-04-09 10:12] LABS: BLOOD UREA NITROGEN 22 MG/DL (9-23); CALCIUM LEVEL 9.2 MG/DL (8.3-10.6); CARBON DIOXIDE LEVEL 30 MMOL/L (20-31); CHLORIDE LEVEL 102 MMOL/L (98-107); CREATININE FOR GFR 0.73 MG/DL (0.70-1.30); GLOMERULAR FILTRATION RATE > 60.0 (>49); GLUCOSE, FASTING 108 MG/DL (74-106); POTASSIUM SERUM 4.2 MMOL/L (3.5-5.1); SODIUM LEVEL 138 MMOL/L (136-145)
[2024-04-09 10:18] LABS: PROCALCITONIN 0.72 ng/ml
[2024-04-09 12:00] VITALS: BP 102/67; TEMP 100.8; O2SAT 94
[2024-04-09] MEDS: VANCOMYCIN HCL 1,000 MG, VIAL MATE ADAPTER 1 EACH in D5W 250 ML IV ONE (16:05)
[2024-04-09] MEDS: LACTOBACILLUS ACIDOPHILUS CAP (BACID) PO SCH (17:29)
[2024-04-09] MEDS: AZTREONAM 2 GM in D5W MINI-BAG PLUS 50 ML IV SCH (17:29)
[2024-04-09] MEDS: metroNIDAZOLE 500 MG in IV 1 EA IV SCH (18:15)
[2024-04-09 20:00] VITALS: BP 103/69; TEMP 100; O2SAT 94
[2024-04-09] MEDS: VANCOMYCIN HCL 750 MG, VIAL MATE ADAPTER 1 EACH in D5W 250 ML IV SCH (20:24)
[2024-04-09] MEDS: VANCOMYCIN HCL 500 MG in D5W MINI-BAG PLUS 100 ML IV SCH (21:50)
[2024-04-10] VITALS (9 sets, daily range): BP systolic 105–107; BP diastolic 69; TEMP 98.9–100.4; O2SAT 85–94
[2024-04-10 08:29] LABS: BASO % 0.3 % (0.0-1.0); EOS # 0.2 10^3/uL (0.0-0.5); EOS % 1.6 % (0.0-3.0); HEMOGLOBIN 11.6 g/dl (13.5-17.5); LYMPH # 1.4 10^3/uL (1.5-5.0); LYMPH % 11.9 % (24.0-44.0); MEAN CORPUSCULAR HEMOGLOBIN 32.5 pg (27.0-33.0); MEAN CORPUSCULAR HGB CONC 31.4 g/dl (32.0-36.5); MEAN CORPUSCULAR VOLUME 103.6 fl (80.0-96.0); MONO # 1.7 10^3/uL (0.0-0.8); MONO % 14.3 % (2.0-8.0); NEUTROPHILS # 8.2 10^3/uL (1.5-8.5); NEUTROPHILS % 71.5 % (36.0-66.0); PLATELET COUNT, AUTOMATED 267 10^3/uL (150-450); RED BLOOD COUNT 3.57 10^6/uL (4.30-6.10); WHITE BLOOD COUNT 11.5 10^3/uL (4.0-10.0)
[2024-04-10 08:51] LABS: BLOOD UREA NITROGEN 19 MG/DL (9-23); CALCIUM LEVEL 8.9 MG/DL (8.3-10.6); CARBON DIOXIDE LEVEL 32 MMOL/L (20-31); CHLORIDE LEVEL 99 MMOL/L (98-107); CREATININE FOR GFR 0.81 MG/DL (0.70-1.30); GLOMERULAR FILTRATION RATE > 60.0 (>49); GLUCOSE, FASTING 98 MG/DL (74-106); POTASSIUM SERUM 4.2 MMOL/L (3.5-5.1); SODIUM LEVEL 135 MMOL/L (136-145); VANCOMYCIN LEVEL TROUGH 10.4 UG/ML (10.0-20.0)
[2024-04-10 13:08] LABS: BODY FLUID CULTURE Not indicated. (.); ORGANISM ID Not indicated. (.); SPECIMEN SOURCE Urine (.); URINE STREP PNEUMONIAE ANTIGEN Negative (Negative)
[2024-04-11 04:00] VITALS: BP 104/69; TEMP 99.5; O2SAT 93
[2024-04-11 08:25] LABS: BASO # 0.1 10^3/uL (0.0-0.2); BASO % 0.6 % (0.0-1.0); EOS # 0.3 10^3/uL (0.0-0.5); EOS % 2.2 % (0.0-3.0); HEMATOCRIT 39.2 % (42.0-52.0); HEMOGLOBIN 12.5 g/dl (13.5-17.5); LYMPH # 1.5 10^3/uL (1.5-5.0); LYMPH % 13.5 % (24.0-44.0); MEAN CORPUSCULAR HEMOGLOBIN 32.8 pg (27.0-33.0); MEAN CORPUSCULAR HGB CONC 31.9 g/dl (32.0-36.5); MEAN CORPUSCULAR VOLUME 102.9 fl (80.0-96.0); MONO % 17.3 % (2.0-8.0); NEUTROPHILS # 7.4 10^3/uL (1.5-8.5); NEUTROPHILS % 65.9 % (36.0-66.0); PLATELET COUNT, AUTOMATED 286 10^3/uL (150-450); RED BLOOD COUNT 3.81 10^6/uL (4.30-6.10); WHITE BLOOD COUNT 11.3 10^3/uL (4.0-10.0)
[2024-04-11 12:00] VITALS: BP 111/72; TEMP 98.4; O2SAT 93
[2024-04-11] MEDS: methylPREDNISolone 125MG 2ML VIAL IV ONE (13:18)
[2024-04-11] MEDS: methylPREDNISolone 125MG 2ML VIAL IV SCH (17:47)
[2024-04-11 19:13] VITALS: BP 113/72; TEMP 98.2; O2SAT 93
[2024-04-12 04:22] VITALS: BP 110/71; TEMP 98.2; O2SAT 97
[2024-04-12 08:39] LABS: BASO % 0.1 % (0.0-1.0); HEMATOCRIT 39.3 % (42.0-52.0); HEMOGLOBIN 12.9 g/dl (13.5-17.5); LYMPH # 0.5 10^3/uL (1.5-5.0); LYMPH % 4.1 % (24.0-44.0); MEAN CORPUSCULAR HEMOGLOBIN 32.9 pg (27.0-33.0); MEAN CORPUSCULAR HGB CONC 32.8 g/dl (32.0-36.5); MEAN CORPUSCULAR VOLUME 100.3 fl (80.0-96.0); MONO # 0.4 10^3/uL (0.0-0.8); MONO % 2.9 % (2.0-8.0); NEUTROPHILS # 12.2 10^3/uL (1.5-8.5); NEUTROPHILS % 92.3 % (36.0-66.0); PLATELET COUNT, AUTOMATED 295 10^3/uL (150-450); RED BLOOD COUNT 3.92 10^6/uL (4.30-6.10); WHITE BLOOD COUNT 13.2 10^3/uL (4.0-10.0)
[2024-04-12 09:07] LABS: BLOOD UREA NITROGEN 34 MG/DL (9-23); CALCIUM LEVEL 9.1 MG/DL (8.3-10.6); CARBON DIOXIDE LEVEL 31 MMOL/L (20-31); CHLORIDE LEVEL 100 MMOL/L (98-107); CREATININE FOR GFR 0.76 MG/DL (0.70-1.30); GLOMERULAR FILTRATION RATE > 60.0 (>49); GLUCOSE, FASTING 174 MG/DL (74-106); POTASSIUM SERUM 4.9 MMOL/L (3.5-5.1); SODIUM LEVEL 137 MMOL/L (136-145)
[2024-04-12 12:00] VITALS: BP 121/73; TEMP 98.1; O2SAT 91
[2024-04-12] MEDS ORDERED: LIDOCAINE 1% MDV 20ML VIAL As Ordered ONE (15:26)
[2024-04-12] MEDS: AZTREONAM 2 GM in D5W MINI-BAG PLUS 100 ML IV SCH (16:37)
[2024-04-12] MEDS: SODIUM CHLORIDE 0.9% INJ 10 ML SYR IV SCH (18:14)
[2024-04-12 20:00] VITALS: BP 122/72; TEMP 98.6; O2SAT 90
[2024-04-13 04:00] VITALS: BP 119/72; TEMP 98.4; O2SAT 93
[2024-04-13 06:07] LABS: BASO % 0.1 % (0.0-1.0); HEMATOCRIT 34.4 % (42.0-52.0); HEMOGLOBIN 11.3 g/dl (13.5-17.5); LYMPH # 0.5 10^3/uL (1.5-5.0); MEAN CORPUSCULAR HEMOGLOBIN 32.8 pg (27.0-33.0); MEAN CORPUSCULAR HGB CONC 32.8 g/dl (32.0-36.5); MEAN CORPUSCULAR VOLUME 99.7 fl (80.0-96.0); MONO # 0.7 10^3/uL (0.0-0.8); MONO % 3.7 % (2.0-8.0); NEUTROPHILS # 16.8 10^3/uL (1.5-8.5); NEUTROPHILS % 92.6 % (36.0-66.0); PLATELET COUNT, AUTOMATED 295 10^3/uL (150-450); RED BLOOD COUNT 3.45 10^6/uL (4.30-6.10); WHITE BLOOD COUNT 18.2 10^3/uL (4.0-10.0)
[2024-04-13 10:50] LABS: BLOOD UREA NITROGEN 32 MG/DL (9-23); CALCIUM LEVEL 8.8 MG/DL (8.3-10.6); CARBON DIOXIDE LEVEL 32 MMOL/L (20-31); CHLORIDE LEVEL 102 MMOL/L (98-107); CREATININE FOR GFR 0.71 MG/DL (0.70-1.30); GLOMERULAR FILTRATION RATE > 60.0 (>49); GLUCOSE, FASTING 142 MG/DL (74-106); POTASSIUM SERUM 4.6 MMOL/L (3.5-5.1); SODIUM LEVEL 139 MMOL/L (136-145)
[2024-04-13] MEDS: methylPREDNISolone 40MG 1ML VIAL IV SCH (10:56)
[2024-04-13] MEDS: SODIUM CHLORIDE 0.9% INJ 10 ML SYR IV PRN (11:45)
[2024-04-13 12:00] VITALS: BP 114/72; TEMP 97.8; O2SAT 91
[2024-04-13 20:00] VITALS: BP 112/72; TEMP 98.6; O2SAT 92
[2024-04-14 04:00] VITALS: BP 117/82; TEMP 98.4; O2SAT 97
[2024-04-14 06:15] LABS: BASO % 0.1 % (0.0-1.0); EOS % 0.1 % (0.0-3.0); HEMATOCRIT 34.6 % (42.0-52.0); HEMOGLOBIN 11.2 g/dl (13.5-17.5); LYMPH # 1.5 10^3/uL (1.5-5.0); LYMPH % 9.9 % (24.0-44.0); MEAN CORPUSCULAR HEMOGLOBIN 32.7 pg (27.0-33.0); MEAN CORPUSCULAR HGB CONC 32.4 g/dl (32.0-36.5); MEAN CORPUSCULAR VOLUME 101.2 fl (80.0-96.0); MONO # 1.3 10^3/uL (0.0-0.8); MONO % 8.4 % (2.0-8.0); NEUTROPHILS # 12.3 10^3/uL (1.5-8.5); NEUTROPHILS % 80.8 % (36.0-66.0); PLATELET COUNT, AUTOMATED 304 10^3/uL (150-450); RED BLOOD COUNT 3.42 10^6/uL (4.30-6.10); WHITE BLOOD COUNT 15.2 10^3/uL (4.0-10.0)
[2024-04-14 06:45] VITALS: O2SAT 78
[2024-04-14 06:50] VITALS: O2SAT 87
[2024-04-14] MEDS: predniSONE 20 MG TAB PO SCH (11:15)
[2024-04-14 12:00] VITALS: BP 119/89; TEMP 98.2; O2SAT 90
[2024-04-14] MEDS: IPRATROPIUM 0.02% SOLN 0.5MG 2.5ML NEB INH PRN (13:22)
[2024-04-14 19:29] VITALS: BP 109/87; TEMP 98.2; O2SAT 92
[2024-04-15 04:19] VITALS: BP 111/84; TEMP 98.2; O2SAT 90
[2024-04-15 06:18] LABS: BASO % 0.1 % (0.0-1.0); EOS # 0.1 10^3/uL (0.0-0.5); EOS % 1.2 % (0.0-3.0); HEMATOCRIT 36.6 % (42.0-52.0); HEMOGLOBIN 11.8 g/dl (13.5-17.5); LYMPH # 1.4 10^3/uL (1.5-5.0); LYMPH % 13.7 % (24.0-44.0); MEAN CORPUSCULAR HEMOGLOBIN 32.7 pg (27.0-33.0); MEAN CORPUSCULAR HGB CONC 32.2 g/dl (32.0-36.5); MEAN CORPUSCULAR VOLUME 101.4 fl (80.0-96.0); MONO # 1.1 10^3/uL (0.0-0.8); MONO % 11.1 % (2.0-8.0); NEUTROPHILS # 7.4 10^3/uL (1.5-8.5); PLATELET COUNT, AUTOMATED 297 10^3/uL (150-450); RED BLOOD COUNT 3.61 10^6/uL (4.30-6.10); WHITE BLOOD COUNT 10.1 10^3/uL (4.0-10.0)
[2024-04-15 06:48] LABS: ALBUMIN 2.3 G/DL (3.2-5.2); ALKALINE PHOSPHATASE 80 U/L (46-116); ALT/SGPT 31 U/L (7.0-40); AST/SGOT 29 U/L (<34); BILIRUBIN,TOTAL 0.3 MG/DL (0.3-1.2); BLOOD UREA NITROGEN 24 MG/DL (9-23); CALCIUM LEVEL 8.7 MG/DL (8.3-10.6); CARBON DIOXIDE LEVEL 32 MMOL/L (20-31); CHLORIDE LEVEL 101 MMOL/L (98-107); CREATININE FOR GFR 0.72 MG/DL (0.70-1.30); GLOMERULAR FILTRATION RATE > 60.0 (>49); GLUCOSE, FASTING 86 MG/DL (74-106); POTASSIUM SERUM 4.1 MMOL/L (3.5-5.1); SODIUM LEVEL 139 MMOL/L (136-145); TOTAL PROTEIN 5.4 G/DL (5.7-8.2)
[2024-04-15] MEDS ORDERED: PRED20TA PO (11:31)
[2024-04-15 12:00] VITALS: BP 110/78; TEMP 98.4; O2SAT 95
== END 2024-04-15 14:11 | disposition home or self-care (01) | DRG 193 ==
LOC: EDBD 15:56 → M ED 15:56 → M ED INP 17:56 → M MSPAV 20:48
PROVIDERS: ADMIT General Practice; ATTEND Family Medicine
PROC: 02HV33Z Insertion of Infusion Device into Superior Vena Cava, Percutaneous Approach (ICD-10-PCS; principal; 2024-04-12 12:30)
DX: J18.9 Pneumonia, unspecified organism (principal); J96.21 Acute and chronic respiratory failure with hypoxia; J44.0 Chronic obstructive pulmonary disease with (acute) lower respiratory infection; J96.12 Chronic respiratory failure with hypercapnia; J44.1 Chronic obstructive pulmonary disease with (acute) exacerbation; R64 Cachexia; E03.9 Hypothyroidism, unspecified; G89.29 Other chronic pain; R91.1 Solitary pulmonary nodule; F10.10 Alcohol abuse, uncomplicated; E55.9 Vitamin D deficiency, unspecified; F43.10 Post-traumatic stress disorder, unspecified; F41.9 Anxiety disorder, unspecified; F32.A Depression, unspecified; F40.10 Social phobia, unspecified; G43.909 Migraine, unspecified, not intractable, without status migrainosus; Z99.81 Dependence on supplemental oxygen; Z87.891 Personal history of nicotine dependence; Z79.890 Hormone replacement therapy; Z79.899 Other long term (current) drug therapy; Z88.0 Allergy status to penicillin

== ENCOUNTER → 2024-04-23 | Outpatient (CLI) | payer MEDICARE, MEDICAID ==
[~2024-04-23] MED LIST changes: +PREDOPD OU
== END ==
LOC: M WHC 13:52
PROVIDERS: ATTEND Physician Assistant Medical
DX: M81.0 Age-related osteoporosis without current pathological fracture (principal)

== ENCOUNTER → 2024-04-29 | Outpatient (REF) | payer MEDICARE, MEDICAID | LOC: M SFHCPLAZ 15:45 | PROVIDERS: ATTEND Physician Assistant Medical | DX: J96.21 Acute and chronic respiratory failure with hypoxia (principal); E55.9 Vitamin D deficiency, unspecified; I50.32 Chronic diastolic (congestive) heart failure; E61.1 Iron deficiency ==

== ENCOUNTER → 2024-04-29 | Outpatient (CLI) | payer MEDICARE, MEDICAID ==
[2024-04-29 12:37] LABS: BASO % 0.2 % (0.0-1.0); EOS # 0.1 10^3/uL (0.0-0.5); EOS % 0.8 % (0.0-3.0); HEMATOCRIT 37.7 % (42.0-52.0); HEMOGLOBIN 12.1 g/dl (13.5-17.5); LYMPH # 0.8 10^3/uL (1.5-5.0); MEAN CORPUSCULAR HEMOGLOBIN 33.1 pg (27.0-33.0); MEAN CORPUSCULAR HGB CONC 32.1 g/dl (32.0-36.5); MONO # 0.8 10^3/uL (0.0-0.8); MONO % 6.2 % (2.0-8.0); NEUTROPHILS # 11.5 10^3/uL (1.5-8.5); NEUTROPHILS % 86.3 % (36.0-66.0); PLATELET COUNT, AUTOMATED 205 10^3/uL (150-450); RED BLOOD COUNT 3.66 10^6/uL (4.30-6.10); WHITE BLOOD COUNT 13.3 10^3/uL (4.0-10.0)
[2024-04-29 12:40] LABS: IRON (FE) 104 UG/DL (65-175)
[2024-04-29 12:46] LABS: ALBUMIN 3.1 G/DL (3.2-5.2); ALKALINE PHOSPHATASE 105 U/L (46-116); ALT/SGPT 41 U/L (7.0-40); AST/SGOT 19 U/L (<34); BILIRUBIN,TOTAL 0.3 MG/DL (0.3-1.2); BLOOD UREA NITROGEN 52 MG/DL (9-23); CALCIUM LEVEL 9.8 MG/DL (8.3-10.6); CARBON DIOXIDE LEVEL 33 MMOL/L (20-31); CHLORIDE LEVEL 101 MMOL/L (98-107); CREATININE FOR GFR 0.91 MG/DL (0.70-1.30); FERRITIN 141.9 NG/ML (10.5-307.3); GLOMERULAR FILTRATION RATE > 60.0 (>49); GLUCOSE, FASTING 112 MG/DL (74-106); POTASSIUM SERUM 4.5 MMOL/L (3.5-5.1); SODIUM LEVEL 135 MMOL/L (136-145); TOTAL 25(OH) VITAMIN D 52.5 NG/ML (20.0-100.0); TOTAL PROTEIN 6.6 G/DL (5.7-8.2)
== END ==
LOC: M PLALAB 10:25
PROVIDERS: ATTEND Physician Assistant Medical
DX: J96.21 Acute and chronic respiratory failure with hypoxia (principal); E55.9 Vitamin D deficiency, unspecified; I50.32 Chronic diastolic (congestive) heart failure; E61.1 Iron deficiency

== ENCOUNTER → 2024-05-14 | Outpatient (CLI) | payer MEDICARE, MEDICAID | LOC: M PLARAD 08:45 | PROVIDERS: ATTEND Internal Medicine Pulmonary Disease | DX: R91.8 Other nonspecific abnormal finding of lung field (principal) | CPT/HCPCS: 78815; A9552 ==

== ENCOUNTER 2024-06-24 13:01 | Emergency (ER) | payer MEDICARE, MEDICAID ==
[~2024-06-24] VITALS: Ht 182.9 cm; Wt 71.0 kg
[2024-06-24 13:24] VITALS: TEMP 98.6
[2024-06-24 15:14] LABS: BASO % 0.4 % (0.0-1.0); EOS # 0.5 10^3/uL (0.0-0.5); EOS % 5.3 % (0.0-3.0); HEMATOCRIT 34.9 % (42.0-52.0); HEMOGLOBIN 11.1 g/dl (13.5-17.5); LYMPH % 11.3 % (24.0-44.0); MEAN CORPUSCULAR HEMOGLOBIN 32.8 pg (27.0-33.0); MEAN CORPUSCULAR HGB CONC 31.8 g/dl (32.0-36.5); MEAN CORPUSCULAR VOLUME 103.3 fl (80.0-96.0); MONO # 1.3 10^3/uL (0.0-0.8); MONO % 14.1 % (2.0-8.0); NEUTROPHILS # 6.3 10^3/uL (1.5-8.5); NEUTROPHILS % 68.6 % (36.0-66.0); PLATELET COUNT, AUTOMATED 286 10^3/uL (150-450); RED BLOOD COUNT 3.38 10^6/uL (4.30-6.10); WHITE BLOOD COUNT 9.2 10^3/uL (4.0-10.0)
[2024-06-24 15:42] LABS: BLOOD UREA NITROGEN 30 MG/DL (9-23); CALCIUM LEVEL 9.1 MG/DL (8.3-10.6); CARBON DIOXIDE LEVEL 33 MMOL/L (20-31); CHLORIDE LEVEL 102 MMOL/L (98-107); CREATININE FOR GFR 0.89 MG/DL (0.70-1.30); GLOMERULAR FILTRATION RATE > 60.0 (>49); GLUCOSE, FASTING 99 MG/DL (74-106); POTASSIUM SERUM 4.7 MMOL/L (3.5-5.1); SODIUM LEVEL 137 MMOL/L (136-145)
[2024-06-24] MEDS: IPRATROPIUM 0.5MG/ALBUTEROL 2.5MG INH SOL UD 3ML (DUONEB) NEB PRN (17:36)
[2024-06-24] MEDS ORDERED: FLOM0.4C39 PO (18:00)
[2024-06-24] MEDS ORDERED: BENZ1LOZ9 PO (18:00)
[2024-06-24] MEDS ORDERED: LEXA5TAB13 PO (18:00)
[2024-06-24] MEDS ORDERED: HOME MED LIST COMPLETE! XX SCH (18:05)
[2024-06-24 18:53] VITALS: BP 121/67; O2SAT 100
== END 2024-06-24 18:30 | disposition home or self-care (01) ==
LOC: M ED 13:01
DX: J44.9 Chronic obstructive pulmonary disease, unspecified (principal); Z87.891 Personal history of nicotine dependence; Z88.0 Allergy status to penicillin; Z91.09 Other allergy status, other than to drugs and biological substances; Z79.1 Long term (current) use of non-steroidal anti-inflammatories (NSAID); Z79.2 Long term (current) use of antibiotics; Z79.899 Other long term (current) drug therapy

== ENCOUNTER 2024-06-24 19:38 | Inpatient (IN) | payer MEDICARE, MEDICAID ==
[~2024-06-24] VITALS: Ht 182.9 cm; Wt 68.8 kg
[~2024-06-24 19:38] MED LIST changes: +FLOM0.4C39 PO; +LEXA5TAB13 PO
[2024-06-24] MEDS ORDERED: HOME MED LIST COMPLETE! XX SCH (20:10)
[2024-06-24] MEDS: IPRATROPIUM 0.5MG/ALBUTEROL 2.5MG INH SOL UD 3ML (DUONEB) NEB PRN (20:14)
[2024-06-24] MEDS: methylPREDNISolone 125MG 2ML VIAL IV ONE (20:21)
[2024-06-24 20:28] LABS: BASO # 0.1 10^3/uL (0.0-0.2); BASO % 0.5 % (0.0-1.0); EOS # 0.3 10^3/uL (0.0-0.5); EOS % 2.6 % (0.0-3.0); HEMATOCRIT 37.5 % (42.0-52.0); HEMOGLOBIN 11.8 g/dl (13.5-17.5); LYMPH # 0.8 10^3/uL (1.5-5.0); LYMPH % 6.3 % (24.0-44.0); MEAN CORPUSCULAR HEMOGLOBIN 32.5 pg (27.0-33.0); MEAN CORPUSCULAR HGB CONC 31.5 g/dl (32.0-36.5); MEAN CORPUSCULAR VOLUME 103.3 fl (80.0-96.0); MONO # 1.4 10^3/uL (0.0-0.8); MONO % 11.3 % (2.0-8.0); NEUTROPHILS # 9.5 10^3/uL (1.5-8.5); NEUTROPHILS % 78.9 % (36.0-66.0); PLATELET COUNT, AUTOMATED 308 10^3/uL (150-450); RED BLOOD COUNT 3.63 10^6/uL (4.30-6.10)
[2024-06-24 20:31] LABS: ABG BASE EXCESS 5.1 (-2.0-2.0); ABG HCO3 30.2 MMOL/L (22.0-26.0); ABG O2 SATURATION 98.2 % (95.0-99.0); ABG PARTIAL PRESSURE CO2 46.6 mmHg (35.0-45.0); ABG PARTIAL PRESSURE O2 116.4 mmHg (75.0-100.0); ABG TOTAL CO2 31.6 MMOL/L (23.0-31.0); ABG pH (ARTERIAL) 7.429 UNITS (7.350-7.450)
[2024-06-24 20:53] LABS: ALBUMIN 3.1 G/DL (3.2-5.2); ALKALINE PHOSPHATASE 112 U/L (46-116); ALT/SGPT 14 U/L (7.0-40); AST/SGOT 15 U/L (<34); BILIRUBIN,DIRECT 0.2 MG/DL (<0.4); BILIRUBIN,TOTAL 0.5 MG/DL (0.3-1.2); BLOOD UREA NITROGEN 27 MG/DL (9-23); CALCIUM LEVEL 8.9 MG/DL (8.3-10.6); CARBON DIOXIDE LEVEL 30 MMOL/L (20-31); CHLORIDE LEVEL 102 MMOL/L (98-107); CK-MB VALUE MASS < 1.0 NG/ML (<3.6); CREATININE FOR GFR 0.82 MG/DL (0.70-1.30); GLOMERULAR FILTRATION RATE > 60.0 (>49); GLUCOSE, FASTING 133 MG/DL (74-106); POTASSIUM SERUM 4.3 MMOL/L (3.5-5.1); SODIUM LEVEL 139 MMOL/L (136-145); TOTAL PROTEIN 6.9 G/DL (5.7-8.2)
[2024-06-24 20:56] LABS: THYROID STIMULATING HORMONE 0.456 uIU/ML (0.55-4.78)
[2024-06-24] MEDS ORDERED: ISOVUE-370 76% 100ML VIAL As Ordered ONE (21:03)
[2024-06-24 21:07] LABS: CPK CREATINE PHOSPHOKINASE 30 U/L (46-171); MB/CK RELATIVE INDEX 3.33 (< OR =4)
[2024-06-24] MEDS: ACETAMINOPHEN TAB 650MG DOSE (2X325MG) PO ONE (23:04)
[2024-06-24 23:07] LABS: CK-MB VALUE MASS < 1.0 NG/ML (<3.6)
[2024-06-24] MEDS ORDERED: NS 1,000 ML IV SCH (23:45)
[2024-06-25] VITALS (9 sets, daily range): BP systolic 100–116; BP diastolic 58–64; TEMP 97.5–98.2; O2SAT 91–95
[2024-06-25 00:01] LABS: CPK CREATINE PHOSPHOKINASE 30 U/L (46-171); MB/CK RELATIVE INDEX 3.33 (< OR =4)
[2024-06-25] MEDS: NS 1,000 ML IV ONE (00:03)
[2024-06-25] MEDS: CEFEPIME HCL 2 GM in D5W MINI-BAG PLUS 50 ML IV ONE (00:03)
[2024-06-25] MEDS: IPRATROPIUM 0.5MG/ALBUTEROL 2.5MG INH SOL UD 3ML (DUONEB) NEB SCH (01:27)
[2024-06-25] MEDS: NS 1,000 ML IV SCH (01:51)
[2024-06-25] MEDS ORDERED: ALBUTEROL SULFATE 2.5MG/0.5ML INH NEB SOLN INH PRN (02:50)
[2024-06-25] MEDS: AZITHROMYCIN INJ 500 MG, VIAL MATE ADAPTER 1 EACH in NS 250 ML IV SCH (04:05)
[2024-06-25] MEDS: methylPREDNISolone 40MG 1ML VIAL IV SCH (04:05)
[2024-06-25] MEDS: LATANOPROST 0.005% OPHTH SOLN 2.5 ML OU SCH (04:07)
[2024-06-25] MEDS: ONDANSETRON 4MG TAB PO ONE (05:25)
[2024-06-25] MEDS: LEVOTHYROXINE 25MCG TABLET (0.025MG) PO SCH (06:23)
[2024-06-25] MEDS: CEFEPIME HCL 2 GM in D5W MINI-BAG PLUS 50 ML IV SCH (07:52)
[2024-06-25] MEDS: GABAPENTIN 300 MG CAP PO SCH (07:56)
[2024-06-25] MEDS: TAMSULOSIN 0.4 MG CAP PO SCH (07:56)
[2024-06-25] MEDS: CALCIUM/VITAMIN D 500 MG TAB PO SCH (07:56)
[2024-06-25] MEDS: DOCUSATE SODIUM 100MG CAPSULE PO SCH (07:56)
[2024-06-25] MEDS: ESCITALOPRAM OXALATE 5MG TABLET (LEXAPRO) PO SCH (07:56)
[2024-06-25] MEDS: BACLOFEN 10 MG TAB PO SCH (07:56)
[2024-06-25] MEDS: PANTOPRAZOLE 40MG TAB (PROTONIX) PO SCH (07:57)
[2024-06-25] MEDS: CYANOCOBALAMIN 500 MCG TAB PO SCH (07:57)
[2024-06-25] MEDS: FOLIC ACID 1MG TAB PO SCH (07:57)
[2024-06-25] MEDS: guaiFENesin ER TABLET 600 MG TAB PO SCH (07:57)
[2024-06-25] MEDS: ENOXAPARIN 40MG/0.4ML SYRINGE (J1650 PER 10MG) SC SCH (07:59)
[2024-06-25] MEDS: LACTIC ACID 12% LOTION 225 GM BTL TOP SCH (07:59)
[2024-06-25 12:48] LABS: PERCENT SATURATION 14.9 % (19.7-50.0)
[2024-06-25 12:56] LABS: FERRITIN 140.4 NG/ML (10.5-307.3); FOLATE 17.06 NG/ML (>5.4)
[2024-06-25] MEDS: IPRATROPIUM 0.5MG/ALBUTEROL 2.5MG INH SOL UD 3ML (DUONEB) NEB PRN (15:22)
[2024-06-25] MEDS: cefTRIAXone SOD 2 GM in D5W MINI-BAG PLUS 50 ML IV SCH (16:15)
[2024-06-25] MEDS: methylPREDNISolone 125MG 2ML VIAL IV SCH (16:15)
[2024-06-25] MEDS: CETIRIZINE (ZyrTEC) 10 MG TAB PO SCH (20:44)
[2024-06-26] VITALS (7 sets, daily range): BP systolic 98–114; BP diastolic 54–67; TEMP 97–97.9; O2SAT 87–99
[2024-06-26 06:36] LABS: HEMATOCRIT 30.4 % (42.0-52.0); MEAN CORPUSCULAR HEMOGLOBIN 32.2 pg (27.0-33.0); MEAN CORPUSCULAR HGB CONC 31.6 g/dl (32.0-36.5); PLATELET COUNT, AUTOMATED 262 10^3/uL (150-450); RED BLOOD COUNT 2.98 10^6/uL (4.30-6.10); WHITE BLOOD COUNT 10.9 10^3/uL (4.0-10.0)
[2024-06-26 06:50] LABS: HEMOGLOBIN 9.6 g/dl (13.5-17.5)
[2024-06-26 06:59] LABS: PROCALCITONIN 0.35 ng/ml
[2024-06-26 07:00] LABS: ALBUMIN 2.6 G/DL (3.2-5.2); ALKALINE PHOSPHATASE 86 U/L (46-116); ALT/SGPT 16 U/L (7.0-40); AST/SGOT 14 U/L (<34); BILIRUBIN,TOTAL 0.2 MG/DL (0.3-1.2); BLOOD UREA NITROGEN 21 MG/DL (9-23); CALCIUM LEVEL 8.6 MG/DL (8.3-10.6); CARBON DIOXIDE LEVEL 29 MMOL/L (20-31); CHLORIDE LEVEL 104 MMOL/L (98-107); CREATININE FOR GFR 0.63 MG/DL (0.70-1.30); GLOMERULAR FILTRATION RATE > 60.0 (>49); GLUCOSE, FASTING 124 MG/DL (74-106); MAGNESIUM LEVEL 2.4 MG/DL (1.8-2.4); POTASSIUM SERUM 4.3 MMOL/L (3.5-5.1); SODIUM LEVEL 137 MMOL/L (136-145); TOTAL PROTEIN 5.9 G/DL (5.7-8.2)
[2024-06-26] MEDS: FERROUS GLUCONATE 324 MG TAB PO SCH (10:37)
[2024-06-26] MEDS: ONDANSETRON 4MG 2ML VIAL IV PRN (16:53)
[2024-06-27] VITALS (30 sets, daily range): BP systolic 95–112; BP diastolic 55–64; TEMP 96.9–98.3; O2SAT 80–98
[2024-06-27 05:32] LABS: HEMATOCRIT 29.8 % (42.0-52.0); HEMOGLOBIN 9.5 g/dl (13.5-17.5); MEAN CORPUSCULAR HEMOGLOBIN 32.8 pg (27.0-33.0); MEAN CORPUSCULAR HGB CONC 31.9 g/dl (32.0-36.5); MEAN CORPUSCULAR VOLUME 102.8 fl (80.0-96.0); PLATELET COUNT, AUTOMATED 271 10^3/uL (150-450); WHITE BLOOD COUNT 10.4 10^3/uL (4.0-10.0)
[2024-06-27 05:58] LABS: BLOOD UREA NITROGEN 24 MG/DL (9-23); CALCIUM LEVEL 8.8 MG/DL (8.3-10.6); CARBON DIOXIDE LEVEL 31 MMOL/L (20-31); CHLORIDE LEVEL 102 MMOL/L (98-107); GLOMERULAR FILTRATION RATE > 60.0 (>49); GLUCOSE, FASTING 168 MG/DL (74-106); POTASSIUM SERUM 4.2 MMOL/L (3.5-5.1); SODIUM LEVEL 136 MMOL/L (136-145)
[2024-06-27] MEDS: AZITHROMYCIN 250MG TABLET PO SCH (09:26)
[2024-06-27 10:57] LABS: Methylmalonic Acid 128 nmol/L (69-390)
[2024-06-27] MEDS: predniSONE 20 MG TAB PO SCH (20:17)
[2024-06-27] MEDS: MIRALAX *UNIT DOSE* 17GM PACKET PO SCH (20:17)
[2024-06-28] VITALS (12 sets, daily range): BP systolic 107–125; BP diastolic 61–80; TEMP 97.1–97.8; O2SAT 88–98
[2024-06-28 04:54] LABS: HEMATOCRIT 31.2 % (42.0-52.0); HEMOGLOBIN 9.9 g/dl (13.5-17.5); MEAN CORPUSCULAR HEMOGLOBIN 32.4 pg (27.0-33.0); MEAN CORPUSCULAR HGB CONC 31.7 g/dl (32.0-36.5); PLATELET COUNT, AUTOMATED 284 10^3/uL (150-450); RED BLOOD COUNT 3.06 10^6/uL (4.30-6.10); WHITE BLOOD COUNT 11.4 10^3/uL (4.0-10.0)
[2024-06-28 05:13] LABS: BLOOD UREA NITROGEN 26 MG/DL (9-23); CALCIUM LEVEL 8.9 MG/DL (8.3-10.6); CARBON DIOXIDE LEVEL 31 MMOL/L (20-31); CHLORIDE LEVEL 102 MMOL/L (98-107); CREATININE FOR GFR 0.78 MG/DL (0.70-1.30); GLOMERULAR FILTRATION RATE > 60.0 (>49); GLUCOSE, FASTING 152 MG/DL (74-106); POTASSIUM SERUM 4.3 MMOL/L (3.5-5.1); SODIUM LEVEL 137 MMOL/L (136-145)
[2024-06-28] MEDS ORDERED: PRED10TA2 PO (09:12)
[2024-06-28] MEDS ORDERED: MUCI600T31 PO (09:12)
[2024-06-28] MEDS ORDERED: AZIT-12 PO (09:15)
[2024-06-28] MEDS ORDERED: CEFD1CAP9 PO (09:15)
[2024-06-28] MEDS: ONDANSETRON 4MG TAB PO PRN (16:55)
[2024-06-28] MEDS: LORazepam 1 MG TAB PO PRN (20:51)
[2024-06-28] MEDS: IPRATROPIUM 0.5MG/ALBUTEROL 2.5MG INH SOL UD 3ML (DUONEB) NEB SCH (23:16)
[2024-06-29 03:48] VITALS: BP 103/66; TEMP 97.1; O2SAT 98
[2024-06-29 06:11] LABS: HEMATOCRIT 32.3 % (42.0-52.0); HEMOGLOBIN 10.3 g/dl (13.5-17.5); MEAN CORPUSCULAR HEMOGLOBIN 32.1 pg (27.0-33.0); MEAN CORPUSCULAR HGB CONC 31.9 g/dl (32.0-36.5); MEAN CORPUSCULAR VOLUME 100.6 fl (80.0-96.0); PLATELET COUNT, AUTOMATED 300 10^3/uL (150-450); RED BLOOD COUNT 3.21 10^6/uL (4.30-6.10); WHITE BLOOD COUNT 9.9 10^3/uL (4.0-10.0)
[2024-06-29 06:40] LABS: BLOOD UREA NITROGEN 20 MG/DL (9-23); CARBON DIOXIDE LEVEL 34 MMOL/L (20-31); CHLORIDE LEVEL 102 MMOL/L (98-107); CREATININE FOR GFR 0.69 MG/DL (0.70-1.30); GLOMERULAR FILTRATION RATE > 60.0 (>49); GLUCOSE, FASTING 156 MG/DL (74-106); POTASSIUM SERUM 4.6 MMOL/L (3.5-5.1); SODIUM LEVEL 136 MMOL/L (136-145)
[2024-06-29 08:29] VITALS: BP 103/58; TEMP 97; O2SAT 95
[2024-06-29] MEDS: predniSONE 20 MG TAB PO SCH (09:10)
[2024-06-29] MEDS: AZITHROMYCIN 250MG TABLET PO SCH (09:10)
[2024-06-29] MEDS: CEFDINIR 300 MG CAP (OMNICEF) PO ONE (09:11)
[2024-06-29 15:38] VITALS: BP 115/74; TEMP 98; O2SAT 96
[2024-06-29 19:46] VITALS: BP 115/68; TEMP 97; O2SAT 98
[2024-06-30 03:25] VITALS: BP 126/72; TEMP 97.1; O2SAT 95
[2024-06-30 08:51] VITALS: BP 109/64; TEMP 97.7; O2SAT 95
[2024-06-30 16:52] VITALS: BP 103/61; TEMP 98.4; O2SAT 93
[2024-06-30 20:39] VITALS: BP 107/61; TEMP 97.3; O2SAT 96
[2024-07-01 03:15] VITALS: BP 115/71; TEMP 97.1; O2SAT 95
[2024-07-01 05:58] LABS: HEMATOCRIT 34.1 % (42.0-52.0); MEAN CORPUSCULAR HEMOGLOBIN 32.7 pg (27.0-33.0); MEAN CORPUSCULAR HGB CONC 32.3 g/dl (32.0-36.5); MEAN CORPUSCULAR VOLUME 101.5 fl (80.0-96.0); PLATELET COUNT, AUTOMATED 311 10^3/uL (150-450); RED BLOOD COUNT 3.36 10^6/uL (4.30-6.10); WHITE BLOOD COUNT 11.6 10^3/uL (4.0-10.0)
[2024-07-01 06:23] LABS: BLOOD UREA NITROGEN 20 MG/DL (9-23); CALCIUM LEVEL 9.1 MG/DL (8.3-10.6); CARBON DIOXIDE LEVEL 36 MMOL/L (20-31); CHLORIDE LEVEL 102 MMOL/L (98-107); CREATININE FOR GFR 0.72 MG/DL (0.70-1.30); GLOMERULAR FILTRATION RATE > 60.0 (>49); GLUCOSE, FASTING 114 MG/DL (74-106); POTASSIUM SERUM 4.1 MMOL/L (3.5-5.1); SODIUM LEVEL 136 MMOL/L (136-145)
[2024-07-01 07:31] VITALS: BP 118/77; TEMP 97.8; O2SAT 95
[2024-07-01] MEDS: ACETAMINOPHEN TAB 650MG DOSE (2X325MG) PO PRN (08:34)
== END 2024-07-01 10:39 | DRG 189 ==
LOC: EDBD 19:38 → M ED 19:38 → M ED INP 06-25 00:49 → M PCU 06-25 02:08
PROVIDERS: ADMIT Preventive Medicine Undersea and Hyperbaric Medicine; ATTEND Internal Medicine
DX: J96.21 Acute and chronic respiratory failure with hypoxia (principal); J18.9 Pneumonia, unspecified organism; J44.1 Chronic obstructive pulmonary disease with (acute) exacerbation; J44.0 Chronic obstructive pulmonary disease with (acute) lower respiratory infection; D53.9 Nutritional anemia, unspecified; J43.9 Emphysema, unspecified; K59.00 Constipation, unspecified; Z79.899 Other long term (current) drug therapy; Z99.81 Dependence on supplemental oxygen; Z88.0 Allergy status to penicillin; Z74.09 Other reduced mobility; Z87.891 Personal history of nicotine dependence

== ENCOUNTER 2024-07-25 12:48 | Inpatient (IN) | payer MEDICARE, MEDICAID ==
[~2024-07-25] VITALS: Ht 182.9 cm; Wt 64.0 kg
[~2024-07-25 12:48] MED LIST changes: +AZIT-12 PO; +CEFD1CAP9 PO; +GABA-1490 PO; -GABA600T4 PO
[2024-07-25 14:07] LABS: BASO % 0.3 % (0.0-1.0); EOS % 0.2 % (0.0-3.0); HEMATOCRIT 39.1 % (42.0-52.0); HEMOGLOBIN 12.9 g/dl (13.5-17.5); LYMPH # 0.8 10^3/uL (1.5-5.0); LYMPH % 5.8 % (24.0-44.0); MEAN CORPUSCULAR HEMOGLOBIN 32.3 pg (27.0-33.0); MONO # 1.7 10^3/uL (0.0-0.8); MONO % 12.4 % (2.0-8.0); NEUTROPHILS # 10.9 10^3/uL (1.5-8.5); NEUTROPHILS % 80.9 % (36.0-66.0); PLATELET COUNT, AUTOMATED 342 10^3/uL (150-450); RED BLOOD COUNT 3.99 10^6/uL (4.30-6.10); WHITE BLOOD COUNT 13.4 10^3/uL (4.0-10.0)
[2024-07-25 14:15] LABS: ALBUMIN 3.3 G/DL (3.2-5.2); ALKALINE PHOSPHATASE 121 U/L (46-116); ALT/SGPT 24 U/L (7.0-40); AST/SGOT 36 U/L (<34); BILIRUBIN,DIRECT 0.2 MG/DL (<0.4); BILIRUBIN,TOTAL 0.6 MG/DL (0.3-1.2); BLOOD UREA NITROGEN 35 MG/DL (9-23); CALCIUM LEVEL 9.2 MG/DL (8.3-10.6); CARBON DIOXIDE LEVEL 28 MMOL/L (20-31); CHLORIDE LEVEL 96 MMOL/L (98-107); CREATININE FOR GFR 0.74 MG/DL (0.70-1.30); GLOMERULAR FILTRATION RATE > 60.0 (>49); GLUCOSE, FASTING 126 MG/DL (74-106); POTASSIUM SERUM 4.6 MMOL/L (3.5-5.1); SODIUM LEVEL 132 MMOL/L (136-145); TOTAL PROTEIN 7.4 G/DL (5.7-8.2)
[2024-07-25 14:17] LABS: CPK CREATINE PHOSPHOKINASE 164 U/L (46-171)
[2024-07-25 14:35] LABS: ABG BASE EXCESS 3.9 (-2.0-2.0); ABG HCO3 28.3 MMOL/L (22.0-26.0); ABG O2 SATURATION 92.4 % (95.0-99.0); ABG PARTIAL PRESSURE O2 62.8 mmHg (75.0-100.0); ABG STANDARD HCO3 27.8 MMOL/L. (22.0-26.0); ABG TOTAL CO2 29.6 MMOL/L (23.0-31.0); ABG pH (ARTERIAL) 7.447 UNITS (7.350-7.450)
[2024-07-25] MEDS: methylPREDNISolone 125MG 2ML VIAL IV ONE (14:58)
[2024-07-25] MEDS ORDERED: ISOVUE-370 76% 100ML VIAL As Ordered ONE (15:08)
[2024-07-25] MEDS: ALBUTEROL SULFATE 2.5MG/0.5ML INH NEB SOLN INH ONE (15:42)
[2024-07-25] MEDS: IPRATROPIUM 0.5MG/ALBUTEROL 2.5MG INH SOL UD 3ML (DUONEB) NEB ONE (15:42)
[2024-07-25 16:14] LABS: CK-MB VALUE MASS < 1.0 NG/ML (<3.6)
[2024-07-25 16:15] LABS: CPK CREATINE PHOSPHOKINASE 130 U/L (46-171); MB/CK RELATIVE INDEX 0.76 (< OR =4)
[2024-07-25] MEDS: LevoFLOXacin IV 750 MG in IV 1 EA IV ONE (17:25)
[2024-07-25] MEDS ORDERED: ACETAMINOPHEN TAB 650MG DOSE (2X325MG) PO PRN (17:50)
[2024-07-25] MEDS ORDERED: HOME MED LIST COMPLETE! XX SCH (19:00)
[2024-07-25 19:44] LABS: INR 1.19; PROTHROMBIN TIME 14.8 SECONDS (12.5-14.5)
[2024-07-25] MEDS: LEVALBUTEROL 1.25MG 0.5ML CONCENTRATE NEB NEB SCH (20:28)
[2024-07-25] MEDS: DOXYCYCLINE HYCLATE 100MG TABLET PO SCH (21:13)
[2024-07-25] MEDS: methylPREDNISolone 125MG 2ML VIAL IV SCH (21:14)
[2024-07-25] MEDS: cefTRIAXone SOD 1 GM in D5W MINI-BAG PLUS 50 ML IV SCH (21:16)
[2024-07-25] MEDS: NS 1,000 ML IV SCH (21:17)
[2024-07-26] MEDS: LEVALBUTEROL 1.25MG 0.5ML CONCENTRATE NEB NEB PRN (01:24)
[2024-07-26 06:43] LABS: HEMATOCRIT 36.2 % (42.0-52.0); HEMOGLOBIN 11.9 g/dl (13.5-17.5); MEAN CORPUSCULAR HEMOGLOBIN 32.4 pg (27.0-33.0); MEAN CORPUSCULAR HGB CONC 32.9 g/dl (32.0-36.5); MEAN CORPUSCULAR VOLUME 98.6 fl (80.0-96.0); PLATELET COUNT, AUTOMATED 336 10^3/uL (150-450); RED BLOOD COUNT 3.67 10^6/uL (4.30-6.10); WHITE BLOOD COUNT 9.2 10^3/uL (4.0-10.0)
[2024-07-26 07:22] LABS: ALKALINE PHOSPHATASE 110 U/L (46-116); ALT/SGPT 25 U/L (7.0-40); AST/SGOT 25 U/L (<34); BILIRUBIN,TOTAL 0.3 MG/DL (0.3-1.2); BLOOD UREA NITROGEN 33 MG/DL (9-23); CALCIUM LEVEL 8.9 MG/DL (8.3-10.6); CARBON DIOXIDE LEVEL 30 MMOL/L (20-31); CHLORIDE LEVEL 98 MMOL/L (98-107); GLOMERULAR FILTRATION RATE > 60.0 (>49); GLUCOSE, FASTING 179 MG/DL (74-106); POTASSIUM SERUM 4.2 MMOL/L (3.5-5.1); SODIUM LEVEL 134 MMOL/L (136-145)
[2024-07-26 08:30] VITALS: O2SAT 92
[2024-07-26] MEDS: ENOXAPARIN 40MG/0.4ML SYRINGE (J1650 PER 10MG) SC SCH (10:31)
[2024-07-26 14:39] LABS: PROCALCITONIN 0.28 ng/ml
[2024-07-26 17:23] VITALS: BP 123/71; TEMP 98.1; O2SAT 91
[2024-07-26 19:50] VITALS: BP 114/76; TEMP 97.9; O2SAT 91
[2024-07-27 03:00] VITALS: BP 117/77; TEMP 97.9; O2SAT 90
[2024-07-27 06:51] LABS: HEMATOCRIT 33.4 % (42.0-52.0); HEMOGLOBIN 10.9 g/dl (13.5-17.5); MEAN CORPUSCULAR HEMOGLOBIN 32.6 pg (27.0-33.0); MEAN CORPUSCULAR HGB CONC 32.6 g/dl (32.0-36.5); PLATELET COUNT, AUTOMATED 349 10^3/uL (150-450); RED BLOOD COUNT 3.34 10^6/uL (4.30-6.10); WHITE BLOOD COUNT 15.9 10^3/uL (4.0-10.0)
[2024-07-27 07:21] LABS: ALBUMIN 2.9 G/DL (3.2-5.2); ALKALINE PHOSPHATASE 94 U/L (46-116); ALT/SGPT 38 U/L (7.0-40); AST/SGOT 45 U/L (<34); BILIRUBIN,TOTAL 0.3 MG/DL (0.3-1.2); BLOOD UREA NITROGEN 36 MG/DL (9-23); CALCIUM LEVEL 8.8 MG/DL (8.3-10.6); CARBON DIOXIDE LEVEL 29 MMOL/L (20-31); CHLORIDE LEVEL 103 MMOL/L (98-107); CREATININE FOR GFR 0.69 MG/DL (0.70-1.30); GLOMERULAR FILTRATION RATE > 60.0 (>49); GLUCOSE, FASTING 174 MG/DL (74-106); POTASSIUM SERUM 4.2 MMOL/L (3.5-5.1); SODIUM LEVEL 137 MMOL/L (136-145); TOTAL PROTEIN 6.5 G/DL (5.7-8.2)
[2024-07-27] MEDS: DOCUSATE SODIUM 100MG CAPSULE PO SCH (09:00)
[2024-07-27 12:00] VITALS: BP 131/86; TEMP 97.7; O2SAT 95
[2024-07-27] MEDS ORDERED: FUROSEMIDE 80 MG TAB PO SCH (12:00)
[2024-07-27] MEDS ORDERED: CEPACOL LOZENGE PO PRN (12:40)
[2024-07-27] MEDS ORDERED: RAMELTEON 8 MG TAB (ROZEREM) PO PRN (12:40)
[2024-07-27] MEDS ORDERED: LORazepam 1 MG TAB PO PRN (12:40)
[2024-07-27] MEDS: ESCITALOPRAM OXALATE 5MG TABLET (LEXAPRO) PO SCH (14:26)
[2024-07-27] MEDS: FOLIC ACID 1MG TAB PO SCH (14:26)
[2024-07-27] MEDS: CYANOCOBALAMIN 500 MCG TAB PO SCH (14:26)
[2024-07-27] MEDS: LEVOTHYROXINE 25MCG TABLET (0.025MG) PO SCH (14:27)
[2024-07-27] MEDS: PANTOPRAZOLE 40MG TAB (PROTONIX) PO SCH (14:28)
[2024-07-27] MEDS: TAMSULOSIN 0.4 MG CAP PO SCH (14:28)
[2024-07-27] MEDS: CelecoXIB (CeleBREX) 100 MG CAP PO SCH (14:28)
[2024-07-27] MEDS: ARTIFICIAL TEARS DROPS 15ML BTL (VISINE DRY RELIEF) OU SCH (17:17)
[2024-07-27] MEDS: GABAPENTIN 300 MG CAP PO SCH (17:17)
[2024-07-27] MEDS: BACLOFEN 10 MG TAB PO SCH (17:17)
[2024-07-27 19:40] VITALS: BP 124/72; TEMP 97.9; O2SAT 94
[2024-07-27 20:00] VITALS: O2SAT 97
[2024-07-27] MEDS: LATANOPROST 0.005% OPHTH SOLN 2.5 ML OU SCH (20:44)
[2024-07-27] MEDS: CETIRIZINE (ZyrTEC) 10 MG TAB PO SCH (20:44)
[2024-07-28 04:00] VITALS: BP 115/66; TEMP 97.9; O2SAT 93
[2024-07-28 06:19] LABS: HEMATOCRIT 32.6 % (42.0-52.0); HEMOGLOBIN 10.4 g/dl (13.5-17.5); MEAN CORPUSCULAR HEMOGLOBIN 32.2 pg (27.0-33.0); MEAN CORPUSCULAR HGB CONC 31.9 g/dl (32.0-36.5); MEAN CORPUSCULAR VOLUME 100.9 fl (80.0-96.0); PLATELET COUNT, AUTOMATED 325 10^3/uL (150-450); RED BLOOD COUNT 3.23 10^6/uL (4.30-6.10); WHITE BLOOD COUNT 12.5 10^3/uL (4.0-10.0)
[2024-07-28 06:42] LABS: ALBUMIN 2.8 G/DL (3.2-5.2); ALKALINE PHOSPHATASE 86 U/L (46-116); ALT/SGPT 39 U/L (7.0-40); AST/SGOT 32 U/L (<34); BILIRUBIN,TOTAL 0.3 MG/DL (0.3-1.2); BLOOD UREA NITROGEN 44 MG/DL (9-23); CALCIUM LEVEL 8.8 MG/DL (8.3-10.6); CARBON DIOXIDE LEVEL 30 MMOL/L (20-31); CHLORIDE LEVEL 102 MMOL/L (98-107); CREATININE FOR GFR 0.75 MG/DL (0.70-1.30); GLOMERULAR FILTRATION RATE > 60.0 (>49); GLUCOSE, FASTING 177 MG/DL (74-106); POTASSIUM SERUM 4.6 MMOL/L (3.5-5.1); SODIUM LEVEL 136 MMOL/L (136-145); TOTAL PROTEIN 6.1 G/DL (5.7-8.2)
[2024-07-28] MEDS ORDERED: predniSONE 10MG TAB PO SCH (09:00)
[2024-07-28] MEDS: DOXYCYCLINE HYCLATE 100MG TABLET PO SCH (09:21)
[2024-07-28] MEDS: predniSONE 20 MG TAB PO SCH (09:22)
[2024-07-28] MEDS: FERROUS GLUCONATE 324 MG TAB PO SCH (09:23)
[2024-07-28 09:27] LABS: CLOSTRIDIUM DIFFICILE PCR NEGATIVE (NEGATIVE)
[2024-07-28] MEDS: CEFDINIR 300 MG CAP (OMNICEF) PO SCH (09:30)
[2024-07-28 11:59] VITALS: BP 120/68; TEMP 97.7; O2SAT 95
[2024-07-28] MEDS: ONDANSETRON 4MG ORAL DISINTEGRATING TAB PO PRN (12:07)
[2024-07-28] MEDS: FUROSEMIDE 40 MG TAB PO SCH (12:07)
[2024-07-28] MEDS: RIZATRIPTAN BENZOATE 10 MG TAB PO PRN (16:20)
[2024-07-28] MEDS ORDERED: LOPERAMIDE 2 MG CAPLET PO PRN (18:40)
[2024-07-28 19:57] VITALS: O2SAT 92
[2024-07-28 20:50] VITALS: BP 117/70; TEMP 97.9; O2SAT 96
[2024-07-29 04:40] VITALS: BP 132/76; TEMP 97.9; O2SAT 95
[2024-07-29 06:59] LABS: HEMATOCRIT 32.7 % (42.0-52.0); HEMOGLOBIN 10.6 g/dl (13.5-17.5); MEAN CORPUSCULAR HEMOGLOBIN 32.3 pg (27.0-33.0); MEAN CORPUSCULAR HGB CONC 32.4 g/dl (32.0-36.5); MEAN CORPUSCULAR VOLUME 99.7 fl (80.0-96.0); PLATELET COUNT, AUTOMATED 331 10^3/uL (150-450); RED BLOOD COUNT 3.28 10^6/uL (4.30-6.10)
[2024-07-29 07:18] LABS: ALBUMIN 2.6 G/DL (3.2-5.2); ALKALINE PHOSPHATASE 85 U/L (46-116); ALT/SGPT 57 U/L (7.0-40); AST/SGOT 43 U/L (<34); BILIRUBIN,TOTAL 0.3 MG/DL (0.3-1.2); BLOOD UREA NITROGEN 40 MG/DL (9-23); CALCIUM LEVEL 8.5 MG/DL (8.3-10.6); CARBON DIOXIDE LEVEL 33 MMOL/L (20-31); CHLORIDE LEVEL 101 MMOL/L (98-107); CREATININE FOR GFR 0.79 MG/DL (0.70-1.30); GLOMERULAR FILTRATION RATE > 60.0 (>49); GLUCOSE, FASTING 86 MG/DL (74-106); POTASSIUM SERUM 4.1 MMOL/L (3.5-5.1); SODIUM LEVEL 137 MMOL/L (136-145); TOTAL PROTEIN 5.8 G/DL (5.7-8.2)
[2024-07-29] MEDS: LACTOBACILLUS ACIDOPHILUS CAP (BACID) PO SCH (08:38)
[2024-07-29] MEDS: predniSONE 20 MG TAB PO SCH (08:39)
[2024-07-29] MEDS ORDERED: RISATAB3 PO (11:23)
[2024-07-29] MEDS ORDERED: DOXY100T PO (11:23)
[2024-07-29] MEDS ORDERED: CEFD300CAP PO (11:23)
== END 2024-07-29 13:53 | DRG 871 ==
LOC: M ED 12:48 → EDBD 12:48 → M ED INP 12:49 → INTOOBSV 14:11 → OBSVTOIN 14:11 → M ED INP 07-26 18:21 → M MSPAV 07-26 18:21 → UNDODISIN 07-29 13:53
PROVIDERS: ADMIT Internal Medicine; ATTEND Internal Medicine
DX: A41.9 Sepsis, unspecified organism (principal); J18.9 Pneumonia, unspecified organism; J96.11 Chronic respiratory failure with hypoxia; J96.12 Chronic respiratory failure with hypercapnia; J44.1 Chronic obstructive pulmonary disease with (acute) exacerbation; J44.0 Chronic obstructive pulmonary disease with (acute) lower respiratory infection; E87.1 Hypo-osmolality and hyponatremia; R91.8 Other nonspecific abnormal finding of lung field; E55.9 Vitamin D deficiency, unspecified; E03.9 Hypothyroidism, unspecified; F43.10 Post-traumatic stress disorder, unspecified; F41.9 Anxiety disorder, unspecified; F32.A Depression, unspecified; G43.909 Migraine, unspecified, not intractable, without status migrainosus; Z86.73 Personal history of transient ischemic attack (TIA), and cerebral infarction without residual deficits; F40.10 Social phobia, unspecified; Z87.891 Personal history of nicotine dependence; Z99.81 Dependence on supplemental oxygen; M19.90 Unspecified osteoarthritis, unspecified site; Z79.890 Hormone replacement therapy; Z79.899 Other long term (current) drug therapy; Z88.0 Allergy status to penicillin

== ENCOUNTER → 2024-08-09 | Outpatient (REF) | payer MEDICARE, MEDICAID ==
[~2024-08-09] MED LIST changes: +ACID100C PO; +CEFD300CAP PO; +FLUT15.820 NARES; +RISATAB3 PO; +TRAZ-252 PO
[2024-08-09 09:59] LABS: BASO % 0.3 % (0.0-1.0); EOS # 0.2 10^3/uL (0.0-0.5); EOS % 2.3 % (0.0-3.0); HEMOGLOBIN 9.8 g/dl (13.5-17.5); LYMPH # 1.3 10^3/uL (1.5-5.0); LYMPH % 13.8 % (24.0-44.0); MEAN CORPUSCULAR HEMOGLOBIN 32.3 pg (27.0-33.0); MEAN CORPUSCULAR HGB CONC 30.6 g/dl (32.0-36.5); MEAN CORPUSCULAR VOLUME 105.6 fl (80.0-96.0); MONO # 1.3 10^3/uL (0.0-0.8); MONO % 14.2 % (2.0-8.0); NEUTROPHILS # 6.3 10^3/uL (1.5-8.5); PLATELET COUNT, AUTOMATED 210 10^3/uL (150-450); RED BLOOD COUNT 3.03 10^6/uL (4.30-6.10); WHITE BLOOD COUNT 9.2 10^3/uL (4.0-10.0)
[2024-08-09 10:23] LABS: ALBUMIN 2.3 G/DL (3.2-5.2); ALKALINE PHOSPHATASE 83 U/L (46-116); ALT/SGPT 22 U/L (7.0-40); AST/SGOT 15 U/L (<34); BILIRUBIN,TOTAL 0.2 MG/DL (0.3-1.2); BLOOD UREA NITROGEN 27 MG/DL (9-23); CALCIUM LEVEL 8.6 MG/DL (8.3-10.6); CARBON DIOXIDE LEVEL 37 MMOL/L (20-31); CHLORIDE LEVEL 104 MMOL/L (98-107); CREATININE FOR GFR 0.77 MG/DL (0.70-1.30); GLOMERULAR FILTRATION RATE > 60.0 (>49); GLUCOSE, FASTING 75 MG/DL (74-106); POTASSIUM SERUM 3.9 MMOL/L (3.5-5.1); SODIUM LEVEL 142 MMOL/L (136-145); TOTAL PROTEIN 5.2 G/DL (5.7-8.2)
== END ==
PROVIDERS: ATTEND Psychiatry & Neurology Neurology
DX: G43.909 Migraine, unspecified, not intractable, without status migrainosus (principal)

== ENCOUNTER 2024-08-11 07:40 | Observation (INO) | payer MEDICARE, MEDICAID ==
[~2024-08-11] VITALS: Ht 182.9 cm; Wt 71.3 kg
[~2024-08-11 07:40] MED LIST changes: -ACID100C PO; -FLUT15.820 NARES; -TRAZ-252 PO
[2024-08-11] MEDS: IPRATROPIUM 0.5MG/ALBUTEROL 2.5MG INH SOL UD 3ML (DUONEB) NEB SCH ×2 (08:59→20:30)
[2024-08-11 09:11] LABS: VENOUS BASE EXCESS 6.9 (-2.0-2.0); VENOUS HCO3 33.7 MMOL/L (23.0-27.0); VENOUS O2 SATURATION 93.1 % (60.0-80.0); VENOUS PARTIAL PRESSURE O2 65.4 mmHg (30.0-50.0); VENOUS PH 7.367 UNITS (7.330-7.430); VENOUS STANDARD HCO3 30.7 MMOL/L; VENOUS TOTAL CO2 35.5 MMOL/L (24.0-28.0)
[2024-08-11 09:15] LABS: BASO % 0.5 % (0.0-1.0); EOS # 0.3 10^3/uL (0.0-0.5); EOS % 2.9 % (0.0-3.0); HEMATOCRIT 31.3 % (42.0-52.0); HEMOGLOBIN 9.5 g/dl (13.5-17.5); LYMPH # 1.2 10^3/uL (1.5-5.0); LYMPH % 13.6 % (24.0-44.0); MEAN CORPUSCULAR HEMOGLOBIN 32.6 pg (27.0-33.0); MEAN CORPUSCULAR HGB CONC 30.4 g/dl (32.0-36.5); MEAN CORPUSCULAR VOLUME 107.6 fl (80.0-96.0); MONO # 0.9 10^3/uL (0.0-0.8); NEUTROPHILS # 6.1 10^3/uL (1.5-8.5); NEUTROPHILS % 71.8 % (36.0-66.0); PLATELET COUNT, AUTOMATED 192 10^3/uL (150-450); RED BLOOD COUNT 2.91 10^6/uL (4.30-6.10); WHITE BLOOD COUNT 8.5 10^3/uL (4.0-10.0)
[2024-08-11] MEDS: methylPREDNISolone 125MG 2ML VIAL IV ONE (09:26)
[2024-08-11 09:37] LABS: OSMOLALITY SERUM 302 MOSM/KG (280-301)
[2024-08-11 09:42] LABS: THYROID STIMULATING HORMONE 1.746 uIU/ML (0.55-4.78)
[2024-08-11 09:43] LABS: ALBUMIN 2.4 G/DL (3.2-5.2); ALKALINE PHOSPHATASE 84 U/L (46-116); ALT/SGPT 25 U/L (7.0-40); AST/SGOT 28 U/L (<34); BILIRUBIN,DIRECT < 0.1 MG/DL (<0.4); BILIRUBIN,TOTAL < 0.2 MG/DL (0.3-1.2); BLOOD UREA NITROGEN 21 MG/DL (9-23); CALCIUM LEVEL 8.8 MG/DL (8.3-10.6); CARBON DIOXIDE LEVEL 39 MMOL/L (20-31); CHLORIDE LEVEL 104 MMOL/L (98-107); CREATININE FOR GFR 0.87 MG/DL (0.70-1.30); GLOMERULAR FILTRATION RATE > 60.0 (>49); GLUCOSE, FASTING 98 MG/DL (74-106); POTASSIUM SERUM 5.2 MMOL/L (3.5-5.1); SODIUM LEVEL 143 MMOL/L (136-145); TOTAL PROTEIN 5.6 G/DL (5.7-8.2)
[2024-08-11] MEDS: LevoFLOXacin 750 MG TABLET PO ONE (09:53)
[2024-08-11 10:32] LABS: AMPHETAMINES LEVEL URINE NEGATIVE (NEGATIVE); BARBITURATES URINE NEGATIVE (NEGATIVE); BENZODIAZEPINES URINE NEGATIVE (NEGATIVE); CANNABINOIDS URINE NEGATIVE (NEGATIVE); COCAINE METABOLITE URINE NEGATIVE (NEGATIVE); METHADONE URINE NEGATIVE (NEGATIVE); OPIATES URINE NEGATIVE (NEGATIVE); PHENCYCLIDINE URINE NEGATIVE (NEGATIVE)
[2024-08-11] MEDS ORDERED: MOM 30ML SUSPENSION UDC PO PRN (10:55)
[2024-08-11] MEDS ORDERED: MAALOX 30 ML SUSP *UDC PO PRN (10:55)
[2024-08-11 11:40] LABS: PROCALCITONIN 0.24 ng/ml
[2024-08-11 14:15] VITALS: BP 100/60; TEMP 98.5; O2SAT 95
[2024-08-11] MEDS ORDERED: TRAZ-252 PO (14:47)
[2024-08-11] MEDS ORDERED: FLUT15.820 NARES (14:47)
[2024-08-11] MEDS ORDERED: ONDA-282 PO (14:47)
[2024-08-11] MEDS ORDERED: HOME MED LIST COMPLETE! XX SCH (14:50)
[2024-08-11 16:00] VITALS: BP 98/62; TEMP 98.1; O2SAT 97
[2024-08-11] MEDS ORDERED: RIZATRIPTAN BENZOATE 10 MG TAB PO PRN (16:20)
[2024-08-11] MEDS ORDERED: CEPACOL LOZENGE PO PRN (16:20)
[2024-08-11] MEDS ORDERED: LORazepam 1 MG TAB PO PRN (16:20)
[2024-08-11] MEDS: TAMSULOSIN 0.4 MG CAP PO SCH (18:31)
[2024-08-11] MEDS: ACETAMINOPHEN 325 MG TAB PO PRN (18:31)
[2024-08-11] MEDS: FERROUS GLUCONATE 324 MG TAB PO SCH (18:32)
[2024-08-11] MEDS: predniSONE 10MG TAB PO SCH (18:32)
[2024-08-11] MEDS: ONDANSETRON 4MG ORAL DISINTEGRATING TAB PO PRN (18:50)
[2024-08-11] MEDS: ADVAIR HFA 230/21MCG INHALER INH SCH (20:00)
[2024-08-11 20:20] VITALS: BP 108/66; TEMP 98.4; O2SAT 96
[2024-08-11 20:38] VITALS: O2SAT 79
[2024-08-11] MEDS: GABAPENTIN 300 MG CAP PO SCH (21:06)
[2024-08-11] MEDS: traZODone 50 MG TAB PO PRN (21:06)
[2024-08-11] MEDS: CALCIUM/VITAMIN D 500 MG TAB PO SCH (21:06)
[2024-08-11] MEDS: LATANOPROST 0.005% OPHTH SOLN 2.5 ML OU SCH (21:06)
[2024-08-11] MEDS: CelecoXIB (CeleBREX) 100 MG CAP PO SCH (21:07)
[2024-08-11] MEDS: BACLOFEN 10 MG TAB PO SCH (21:07)
[2024-08-11] MEDS: DOCUSATE SODIUM 100MG CAPSULE PO SCH (21:07)
[2024-08-11] MEDS: CETIRIZINE (ZyrTEC) 10 MG TAB PO SCH (21:07)
[2024-08-11 23:38] VITALS: BP 109/60; TEMP 98; O2SAT 93
[2024-08-12 04:00] VITALS: BP 104/68; TEMP 98.1; O2SAT 93
[2024-08-12] MEDS: IPRATROPIUM 0.5MG/ALBUTEROL 2.5MG INH SOL UD 3ML (DUONEB) NEB PRN (05:16)
[2024-08-12] MEDS: LEVOTHYROXINE 25MCG TABLET (0.025MG) PO SCH (05:36)
[2024-08-12 06:00] LABS: HEMATOCRIT 30.9 % (42.0-52.0); HEMOGLOBIN 9.4 g/dl (13.5-17.5); LYMPH # 0.6 10^3/uL (1.5-5.0); LYMPH % 6.2 % (24.0-44.0); MEAN CORPUSCULAR HEMOGLOBIN 31.8 pg (27.0-33.0); MEAN CORPUSCULAR HGB CONC 30.4 g/dl (32.0-36.5); MEAN CORPUSCULAR VOLUME 104.4 fl (80.0-96.0); MONO # 0.5 10^3/uL (0.0-0.8); MONO % 5.2 % (2.0-8.0); NEUTROPHILS # 8.6 10^3/uL (1.5-8.5); NEUTROPHILS % 88.1 % (36.0-66.0); PLATELET COUNT, AUTOMATED 173 10^3/uL (150-450); RED BLOOD COUNT 2.96 10^6/uL (4.30-6.10); WHITE BLOOD COUNT 9.8 10^3/uL (4.0-10.0)
[2024-08-12 06:28] LABS: BLOOD UREA NITROGEN 18 MG/DL (9-23); CALCIUM LEVEL 8.9 MG/DL (8.3-10.6); CARBON DIOXIDE LEVEL 39 MMOL/L (20-31); CHLORIDE LEVEL 101 MMOL/L (98-107); CREATININE FOR GFR 0.69 MG/DL (0.70-1.30); GLOMERULAR FILTRATION RATE > 60.0 (>49); GLUCOSE, FASTING 207 MG/DL (74-106); POTASSIUM SERUM 4.8 MMOL/L (3.5-5.1); SODIUM LEVEL 140 MMOL/L (136-145)
[2024-08-12 07:36] VITALS: BP 106/58; TEMP 98; O2SAT 92
[2024-08-12] MEDS: PANTOPRAZOLE 40MG TAB (PROTONIX) PO SCH (08:26)
[2024-08-12] MEDS: FOLIC ACID 1MG TAB PO SCH (08:27)
[2024-08-12] MEDS: CYANOCOBALAMIN 500 MCG TAB PO SCH (08:27)
[2024-08-12] MEDS ORDERED: ACID100C PO (08:28)
[2024-08-12] MEDS ORDERED: LEVO1TAB40 PO (08:28)
[2024-08-12] MEDS: ESCITALOPRAM OXALATE 5MG TABLET (LEXAPRO) PO SCH (08:30)
[2024-08-12] MEDS: CALCIUM/VITAMIN D 500 MG TAB PO SCH (08:31)
[2024-08-12] MEDS: ENOXAPARIN 40MG/0.4ML SYRINGE (J1650 PER 10MG) SC SCH (08:31)
[2024-08-12] MEDS: FLUTICASONE PROP 0.05% NASAL SPRAY 16 GM (FLONASE) NARES SCH (08:31)
[2024-08-12] MEDS ORDERED: LevoFLOXacin IV 750 MG in IV 1 EA IV SCH (10:00)
[2024-08-12] MEDS ORDERED: FUROSEMIDE 80 MG TAB PO SCH (12:00)
[2024-08-14] MEDS ORDERED: LACTIC ACID 12% LOTION 225 GM BTL TOP SCH (09:00)
== END 2024-08-12 12:03 ==
LOC: M ED 07:40 → EDBD 07:40 → M ED INP 07:41 → M PCU 13:52
PROVIDERS: ADMIT Internal Medicine; ATTEND Internal Medicine
DX: J18.9 Pneumonia, unspecified organism (principal); J44.0 Chronic obstructive pulmonary disease with (acute) lower respiratory infection; J96.11 Chronic respiratory failure with hypoxia; J96.12 Chronic respiratory failure with hypercapnia; Z99.81 Dependence on supplemental oxygen; E03.9 Hypothyroidism, unspecified; R91.8 Other nonspecific abnormal finding of lung field; Z86.73 Personal history of transient ischemic attack (TIA), and cerebral infarction without residual deficits; Z87.891 Personal history of nicotine dependence; G43.909 Migraine, unspecified, not intractable, without status migrainosus; F43.10 Post-traumatic stress disorder, unspecified; F32.A Depression, unspecified; F41.9 Anxiety disorder, unspecified; G62.9 Polyneuropathy, unspecified; I89.0 Lymphedema, not elsewhere classified; H40.9 Unspecified glaucoma; N40.0 Benign prostatic hyperplasia without lower urinary tract symptoms; K21.9 Gastro-esophageal reflux disease without esophagitis; Z79.2 Long term (current) use of antibiotics; Z79.890 Hormone replacement therapy; Z79.899 Other long term (current) drug therapy; Z88.0 Allergy status to penicillin
CPT/HCPCS: 36415; 70450; 71045; 80048; 80076; 80307; 82140; 82803; 83605; 83735; 83880; 83930; 84145; 84443; 85025; 87040; 87070; 87077; 87205; 87426; 87486; 87581; 87633; 87798; 93005; 93041; 93306; 93970; 94640; 94760; 96372; 96374; 97161; 99285; G0378; J1650; J2919; J7512

== ENCOUNTER → 2024-08-20 | Outpatient (REF) | payer MEDICARE, MEDICAID ==
[~2024-08-20] MED LIST changes: +ACID100C PO; +FLUT15.820 NARES; +TRAZ-252 PO
[2024-08-20 18:30] LABS: APPEARANCE, URINE CLOUDY (CLEAR); BACTERIA, URINE AUTO NEGATIVE (NEGATIVE); BILIRUBIN, URINE AUTO NEGATIVE (NEGATIVE); BLOOD, URINE BLOOD 1+ (NEGATIVE); COLOR, URINE YELLOW (YELLOW); GLUCOSE, URINE (UA) AUTO NEGATIVE (NEGATIVE); KETONE, URINE AUTO NEGATIVE (NEGATIVE); LEUKOCYTE ESTERASE, URINE AUTO NEGATIVE (NEGATIVE); NITRITE, URINE AUTO NEGATIVE (NEGATIVE); PROTEIN, URINE AUTO NEGATIVE (NEGATIVE); RBC, URINE AUTO 21 /HPF (0-3); SPECIFIC GRAVITY URINE AUTO 1.016 (1.002-1.035); SQUAMOUS EPITHELIAL CELL UR AU 0 /HPF (0-6); UROBILINOGEN, URINE AUTO 0.2 mg/dL (0.0-2.0); WBC, URINE AUTO 0 /HPF (0-3)
== END ==
PROVIDERS: ATTEND Physician Assistant Medical
DX: R35.0 Frequency of micturition (principal)

== ENCOUNTER 2024-08-21 14:53 | Emergency (ER) | payer MEDICARE, MEDICAID ==
[~2024-08-21] VITALS: Ht 177.8 cm; Wt 71.6 kg
[2024-08-21 16:00] LABS: BASO % 0.3 % (0.0-1.0); EOS # 0.1 10^3/uL (0.0-0.5); EOS % 1.3 % (0.0-3.0); HEMATOCRIT 33.9 % (42.0-52.0); HEMOGLOBIN 10.5 g/dl (13.5-17.5); LYMPH # 0.4 10^3/uL (1.5-5.0); LYMPH % 4.1 % (24.0-44.0); MEAN CORPUSCULAR HEMOGLOBIN 32.9 pg (27.0-33.0); MEAN CORPUSCULAR VOLUME 106.3 fl (80.0-96.0); MONO # 0.8 10^3/uL (0.0-0.8); MONO % 8.2 % (2.0-8.0); NEUTROPHILS # 7.9 10^3/uL (1.5-8.5); NEUTROPHILS % 85.9 % (36.0-66.0); PLATELET COUNT, AUTOMATED 232 10^3/uL (150-450); RED BLOOD COUNT 3.19 10^6/uL (4.30-6.10); WHITE BLOOD COUNT 9.2 10^3/uL (4.0-10.0)
[2024-08-21 16:22] LABS: ALBUMIN 2.8 G/DL (3.2-5.2); ALKALINE PHOSPHATASE 86 U/L (46-116); ALT/SGPT 15 U/L (7.0-40); AST/SGOT 13 U/L (<34); BILIRUBIN,DIRECT < 0.1 MG/DL (<0.4); BILIRUBIN,TOTAL 0.4 MG/DL (0.3-1.2); BLOOD UREA NITROGEN 22 MG/DL (9-23); CALCIUM LEVEL 9.1 MG/DL (8.3-10.6); CARBON DIOXIDE LEVEL 37 MMOL/L (20-31); CHLORIDE LEVEL 102 MMOL/L (98-107); CREATININE FOR GFR 0.85 MG/DL (0.70-1.30); GLOMERULAR FILTRATION RATE > 60.0 (>49); GLUCOSE, FASTING 131 MG/DL (74-106); SODIUM LEVEL 141 MMOL/L (136-145); TOTAL PROTEIN 6.1 G/DL (5.7-8.2)
[2024-08-21 16:24] LABS: THYROID STIMULATING HORMONE 1.398 uIU/ML (0.55-4.78); THYROXINE (T4) 7.3 UG/DL (4.5-10.9)
[2024-08-21 18:42] VITALS: O2SAT 96
[2024-08-21 19:44] VITALS: BP 109/53; TEMP 97.2
== END 2024-08-21 19:45 | disposition home or self-care (01) ==
LOC: EDBD 14:53 → M ED 14:53
DX: R05.9 Cough, unspecified (principal); J44.9 Chronic obstructive pulmonary disease, unspecified; K21.9 Gastro-esophageal reflux disease without esophagitis; E03.9 Hypothyroidism, unspecified; F43.10 Post-traumatic stress disorder, unspecified; Z88.0 Allergy status to penicillin; Z91.09 Other allergy status, other than to drugs and biological substances; Z79.1 Long term (current) use of non-steroidal anti-inflammatories (NSAID); Z79.51 Long term (current) use of inhaled steroids; Z79.52 Long term (current) use of systemic steroids; Z79.899 Other long term (current) drug therapy

== ENCOUNTER → 2024-08-29 | Outpatient (CLI) | payer MEDICARE, MEDICAID ==
[~2024-08-29] MED LIST changes: +IPRA0.00 NEB; +IPRA2IN INH; +SODI88SP NARES; +VANI1CRE5 TOP
== END ==
LOC: M PLAIMG 09:46
DX: J18.9 Pneumonia, unspecified organism (principal)

== ENCOUNTER → 2024-08-29 | Outpatient (REF) | payer MEDICARE, MEDICAID ==
[~2024-08-29] MED LIST changes: -IPRA0.00 NEB; -IPRA2IN INH; -VANI1CRE5 TOP
== END ==
LOC: M SFHCPLAZ 09:32
DX: R05.8 Other specified cough (principal)

== ENCOUNTER 2024-08-30 01:19 | Emergency (ER) | payer MEDICARE, MEDICAID ==
[~2024-08-30] VITALS: Ht 175.3 cm; Wt 70.5 kg
[~2024-08-30 01:19] MED LIST changes: -SODI88SP NARES
[2024-08-30 03:16] LABS: VENOUS BASE EXCESS 8.9 (-2.0-2.0); VENOUS HCO3 37.5 MMOL/L (23.0-27.0); VENOUS O2 SATURATION 61.5 % (60.0-80.0); VENOUS PARTIAL PRESSURE CO2 76.9 mmHg (38.0-50.0); VENOUS PARTIAL PRESSURE O2 33.6 mmHg (30.0-50.0); VENOUS PH 7.306 UNITS (7.330-7.430); VENOUS TOTAL CO2 39.9 MMOL/L (24.0-28.0)
[2024-08-30 03:19] LABS: BASO % 0.3 % (0.0-1.0); EOS # 0.2 10^3/uL (0.0-0.5); EOS % 2.4 % (0.0-3.0); HEMATOCRIT 31.5 % (42.0-52.0); HEMOGLOBIN 9.8 g/dl (13.5-17.5); LYMPH % 11.9 % (24.0-44.0); MEAN CORPUSCULAR HGB CONC 31.1 g/dl (32.0-36.5); MEAN CORPUSCULAR VOLUME 106.1 fl (80.0-96.0); MONO # 1.2 10^3/uL (0.0-0.8); MONO % 14.2 % (2.0-8.0); NEUTROPHILS # 6.1 10^3/uL (1.5-8.5); NEUTROPHILS % 70.9 % (36.0-66.0); PLATELET COUNT, AUTOMATED 221 10^3/uL (150-450); RED BLOOD COUNT 2.97 10^6/uL (4.30-6.10); WHITE BLOOD COUNT 8.6 10^3/uL (4.0-10.0)
[2024-08-30 03:54] LABS: BLOOD UREA NITROGEN 41 MG/DL (9-23); CALCIUM LEVEL 9.2 MG/DL (8.3-10.6); CARBON DIOXIDE LEVEL 38 MMOL/L (20-31); CHLORIDE LEVEL 105 MMOL/L (98-107); CREATININE FOR GFR 1.18 MG/DL (0.70-1.30); GLOMERULAR FILTRATION RATE > 60.0 (>49); GLUCOSE, FASTING 81 MG/DL (74-106); POTASSIUM SERUM 4.3 MMOL/L (3.5-5.1); SODIUM LEVEL 144 MMOL/L (136-145)
[2024-08-30 04:02] LABS: PROCALCITONIN 0.65 ng/ml
[2024-08-30 04:19] LABS: ABG BASE EXCESS 3.9 (-2.0-2.0); ABG HCO3 30.5 MMOL/L (22.0-26.0); ABG O2 SATURATION 96.6 % (95.0-99.0); ABG PARTIAL PRESSURE CO2 55.8 mmHg (35.0-45.0); ABG PARTIAL PRESSURE O2 92.5 mmHg (75.0-100.0); ABG TOTAL CO2 32.2 MMOL/L (23.0-31.0); ABG pH (ARTERIAL) 7.355 UNITS (7.350-7.450)
[2024-08-30] MEDS ORDERED: LEVO1TAB40 PO ×2 (05:06→10:59)
[2024-08-30] MEDS: LevoFLOXacin 750 MG TABLET PO ONE (05:09)
[2024-08-30 05:30] VITALS: TEMP 97.2
[2024-08-30 07:15] VITALS: BP 106/76; O2SAT 95
== END 2024-08-30 07:21 | disposition home or self-care (01) ==
LOC: EDBD 01:19 → M ED 01:19
DX: S00.81XA Abrasion of other part of head, initial encounter (principal); Y92.019 Unspecified place in single-family (private) house as the place of occurrence of the external cause; Y93.9 Activity, unspecified; Y99.9 Unspecified external cause status; W18.11XA Fall from or off toilet without subsequent striking against object, initial encounter; J18.9 Pneumonia, unspecified organism; J44.9 Chronic obstructive pulmonary disease, unspecified; K21.9 Gastro-esophageal reflux disease without esophagitis; F41.1 Generalized anxiety disorder; E03.9 Hypothyroidism, unspecified; Z87.891 Personal history of nicotine dependence; Z88.0 Allergy status to penicillin; Z79.1 Long term (current) use of non-steroidal anti-inflammatories (NSAID); Z79.51 Long term (current) use of inhaled steroids; Z79.2 Long term (current) use of antibiotics; Z79.52 Long term (current) use of systemic steroids; Z79.899 Other long term (current) drug therapy

== ENCOUNTER 2024-09-02 08:23 | Inpatient (IN) | payer MEDICARE, MEDICAID ==
[~2024-09-02] VITALS: Ht 182.9 cm; Wt 66.8 kg
[2024-09-02] MEDS: IPRATROPIUM 0.5MG/ALBUTEROL 2.5MG INH SOL UD 3ML (DUONEB) NEB ONE (08:48)
[2024-09-02] MEDS: ALBUTEROL SULFATE 2.5MG/0.5ML INH NEB SOLN INH ONE (08:48)
[2024-09-02 08:51] LABS: BASO % 0.4 % (0.0-1.0); EOS # 0.3 10^3/uL (0.0-0.5); EOS % 3.2 % (0.0-3.0); HEMATOCRIT 35.7 % (42.0-52.0); HEMOGLOBIN 10.9 g/dl (13.5-17.5); LYMPH # 1.3 10^3/uL (1.5-5.0); LYMPH % 12.8 % (24.0-44.0); MEAN CORPUSCULAR HEMOGLOBIN 32.3 pg (27.0-33.0); MEAN CORPUSCULAR HGB CONC 30.5 g/dl (32.0-36.5); MEAN CORPUSCULAR VOLUME 105.9 fl (80.0-96.0); MONO # 1.3 10^3/uL (0.0-0.8); MONO % 12.5 % (2.0-8.0); NEUTROPHILS # 7.1 10^3/uL (1.5-8.5); NEUTROPHILS % 70.7 % (36.0-66.0); PLATELET COUNT, AUTOMATED 240 10^3/uL (150-450); RED BLOOD COUNT 3.37 10^6/uL (4.30-6.10); WHITE BLOOD COUNT 10.1 10^3/uL (4.0-10.0)
[2024-09-02 08:52] LABS: ABG BASE EXCESS 8.9 (-2.0-2.0); ABG HCO3 36.2 MMOL/L (22.0-26.0); ABG O2 SATURATION 98.4 % (95.0-99.0); ABG PARTIAL PRESSURE O2 129.8 mmHg (75.0-100.0); ABG STANDARD HCO3 32.7 MMOL/L. (22.0-26.0); ABG TOTAL CO2 38.2 MMOL/L (23.0-31.0); ABG pH (ARTERIAL) 7.366 UNITS (7.350-7.450)
[2024-09-02 08:57] LABS: ABG PARTIAL PRESSURE CO2 64.6 mmHg (35.0-45.0)
[2024-09-02] MEDS ORDERED: ISOVUE-370 76% 100ML VIAL As Ordered ONE (09:06)
[2024-09-02 09:17] LABS: CPK CREATINE PHOSPHOKINASE 20 U/L (46-171)
[2024-09-02 09:18] LABS: ALBUMIN 2.8 G/DL (3.2-5.2); ALKALINE PHOSPHATASE 101 U/L (40-129); ALT/SGPT 18 U/L (7.0-40); AST/SGOT 19 U/L (<34); BILIRUBIN,DIRECT < 0.1 MG/DL (<0.4); BILIRUBIN,TOTAL 0.3 MG/DL (0.3-1.2); BLOOD UREA NITROGEN 36 MG/DL (9-23); CALCIUM LEVEL 9.3 MG/DL (8.3-10.6); CARBON DIOXIDE LEVEL 39 MMOL/L (20-31); CHLORIDE LEVEL 105 MMOL/L (98-107); CREATININE FOR GFR 0.93 MG/DL (0.70-1.30); GLOMERULAR FILTRATION RATE > 60.0 (>49); GLUCOSE, FASTING 106 MG/DL (74-106); POTASSIUM SERUM 4.1 MMOL/L (3.5-5.1); SODIUM LEVEL 144 MMOL/L (136-145); TOTAL PROTEIN 6.3 G/DL (5.7-8.2)
[2024-09-02 09:19] LABS: THYROXINE (T4) 8.2 UG/DL (4.5-10.9)
[2024-09-02 09:29] LABS: PROCALCITONIN 0.49 ng/ml
[2024-09-02] MEDS ORDERED: ADENOSINE 6MG 2ML INJECTION As Ordered ONE (10:02)
[2024-09-02] MEDS: NS 500 ML IV ONE (10:13)
[2024-09-02] MEDS: ADENOSINE 6MG 2ML INJECTION IV STA (10:22)
[2024-09-02 10:24] LABS: CPK CREATINE PHOSPHOKINASE 15 U/L (46-171)
[2024-09-02 10:25] LABS: CK-MB VALUE MASS < 1.0 NG/ML (<3.6); MB/CK RELATIVE INDEX 6.66 (< OR =4)
[2024-09-02] MEDS: CEFEPIME HCL 2 GM in DEXTROSE 5% (D5W) ADV/MINI-BAG 50 ML IV ONE (10:36)
[2024-09-02] MEDS: ACETAMINOPHEN 325 MG TAB PO ONE (10:36)
[2024-09-02] MEDS: LevoFLOXacin IV 750 MG in IV 1 EA IV ONE (11:17)
[2024-09-02] MEDS ORDERED: LEVO1TAB40 PO (11:19)
[2024-09-02] MEDS ORDERED: SODI88SP NARES (11:46)
[2024-09-02] MEDS ORDERED: HOME MED LIST COMPLETE! XX SCH (11:50)
[2024-09-02] MEDS ORDERED: IPRATROPIUM 0.02% SOLN 0.5MG 2.5ML NEB INH PRN (14:00)
[2024-09-02 15:00] VITALS: BP 105/62; TEMP 97.1; O2SAT 90
[2024-09-02 16:00] VITALS: BP 102/68; TEMP 97.2; O2SAT 90
[2024-09-02] MEDS: ACETAMINOPHEN 650MG ER TAB (TYLENOL ARTHRITIS) PO SCH (18:27)
[2024-09-02] MEDS: predniSONE 10MG TAB PO SCH (18:28)
[2024-09-02] MEDS: FERROUS GLUCONATE 324 MG TAB PO SCH (18:28)
[2024-09-02] MEDS: LORazepam 1 MG TAB PO PRN (18:28)
[2024-09-02] MEDS: ESCITALOPRAM OXALATE 5MG TABLET (LEXAPRO) PO SCH (18:29)
[2024-09-02] MEDS: GABAPENTIN 300 MG CAP PO SCH (18:29)
[2024-09-02] MEDS: BACLOFEN 10 MG TAB PO SCH (18:29)
[2024-09-02] MEDS: PANTOPRAZOLE 40MG TAB (PROTONIX) PO SCH (18:29)
[2024-09-02] MEDS: FUROSEMIDE 40 MG TAB PO SCH (18:30)
[2024-09-02] MEDS: TAMSULOSIN 0.4 MG CAP PO SCH (18:31)
[2024-09-02] MEDS: ONDANSETRON 4MG ORAL DISINTEGRATING TAB PO PRN (18:40)
[2024-09-02 19:27] VITALS: BP 102/58; TEMP 98; O2SAT 94
[2024-09-02] MEDS: SYMBICORT 160/4.5MCG INHALER 6GM INH SCH (19:54)
[2024-09-02] MEDS: IPRATROPIUM 0.02% SOLN 0.5MG 2.5ML NEB INH SCH (19:54)
[2024-09-02] MEDS: CEFEPIME HCL 2 GM in DEXTROSE 5% (D5W) ADV/MINI-BAG 50 ML IV SCH (20:34)
[2024-09-02] MEDS: LATANOPROST 0.005% OPHTH SOLN 2.5 ML OU SCH (20:34)
[2024-09-02] MEDS: DOXYCYCLINE HYCLATE 100MG TABLET PO SCH (20:34)
[2024-09-02] MEDS: CETIRIZINE (ZyrTEC) 10 MG TAB PO SCH (20:37)
[2024-09-02] MEDS: CALCIUM/VITAMIN D 500 MG TAB PO SCH (20:37)
[2024-09-02] MEDS ORDERED: CALCIUM/VITAMIN D 500 MG TAB PO SCH (21:00)
[2024-09-02] MEDS: CelecoXIB (CeleBREX) 100 MG CAP PO SCH (21:36)
[2024-09-02] MEDS: VANICREAM MOISTURIZING SKIN CREAM 113GM TUBE TOP SCH (21:36)
[2024-09-02 23:17] VITALS: BP 104/60; TEMP 97.5; O2SAT 91
[2024-09-02] MEDS: RIZATRIPTAN BENZOATE 10 MG TAB PO PRN (23:32)
[2024-09-02] MEDS: CEPACOL LOZENGE PO PRN (23:32)
[2024-09-03 03:22] VITALS: BP 106/58; TEMP 97.2; O2SAT 94
[2024-09-03 05:39] LABS: HEMATOCRIT 31.9 % (42.0-52.0); HEMOGLOBIN 9.7 g/dl (13.5-17.5); MEAN CORPUSCULAR HEMOGLOBIN 32.2 pg (27.0-33.0); MEAN CORPUSCULAR HGB CONC 30.4 g/dl (32.0-36.5); PLATELET COUNT, AUTOMATED 247 10^3/uL (150-450); RED BLOOD COUNT 3.01 10^6/uL (4.30-6.10); WHITE BLOOD COUNT 10.1 10^3/uL (4.0-10.0)
[2024-09-03 06:02] LABS: BLOOD UREA NITROGEN 32 MG/DL (9-23); CARBON DIOXIDE LEVEL 37 MMOL/L (20-31); CHLORIDE LEVEL 105 MMOL/L (98-107); CREATININE FOR GFR 0.87 MG/DL (0.70-1.30); GLOMERULAR FILTRATION RATE > 60.0 (>49); GLUCOSE, FASTING 97 MG/DL (74-106); SODIUM LEVEL 141 MMOL/L (136-145)
[2024-09-03] MEDS: LEVOTHYROXINE 25MCG TABLET (0.025MG) PO SCH (06:10)
[2024-09-03] MEDS: RIZATRIPTAN BENZOATE 10 MG TAB PO PRN (06:57)
[2024-09-03 07:59] VITALS: BP 115/67; TEMP 97.6; O2SAT 96
[2024-09-03] MEDS: DOCUSATE SODIUM 100MG CAPSULE PO SCH (09:27)
[2024-09-03] MEDS: ENOXAPARIN 40MG/0.4ML SYRINGE (J1650 PER 10MG) SC SCH (09:27)
[2024-09-03] MEDS: CYANOCOBALAMIN 500 MCG TAB PO SCH (09:27)
[2024-09-03] MEDS: FOLIC ACID 1MG TAB PO SCH (09:28)
[2024-09-03 16:26] VITALS: TEMP 97.4; O2SAT 91
[2024-09-03 19:20] VITALS: BP 116/66; TEMP 97.1; O2SAT 89
[2024-09-03 23:53] VITALS: BP 113/67; TEMP 97; O2SAT 97
[2024-09-04 04:43] LABS: HEMATOCRIT 32.6 % (42.0-52.0); MEAN CORPUSCULAR HEMOGLOBIN 32.6 pg (27.0-33.0); MEAN CORPUSCULAR HGB CONC 30.7 g/dl (32.0-36.5); MEAN CORPUSCULAR VOLUME 106.2 fl (80.0-96.0); PLATELET COUNT, AUTOMATED 244 10^3/uL (150-450); RED BLOOD COUNT 3.07 10^6/uL (4.30-6.10); WHITE BLOOD COUNT 9.1 10^3/uL (4.0-10.0)
[2024-09-04 05:09] VITALS: BP 125/66; TEMP 97.4; O2SAT 98
[2024-09-04] MEDS: LevoFLOXacin 750 MG TABLET PO SCH (05:15)
[2024-09-04 05:31] LABS: ALBUMIN 2.5 G/DL (3.2-5.2); ALKALINE PHOSPHATASE 84 U/L (40-129); ALT/SGPT 16 U/L (7.0-40); AST/SGOT 14 U/L (<34); BILIRUBIN,TOTAL 0.3 MG/DL (0.3-1.2); BLOOD UREA NITROGEN 33 MG/DL (9-23); CALCIUM LEVEL 9.4 MG/DL (8.3-10.6); CARBON DIOXIDE LEVEL > 40.0 MMOL/L (20-31); CHLORIDE LEVEL 101 MMOL/L (98-107); CREATININE FOR GFR 0.82 MG/DL (0.70-1.30); GLOMERULAR FILTRATION RATE > 60.0 (>49); GLUCOSE, FASTING 91 MG/DL (74-106); POTASSIUM SERUM 4.3 MMOL/L (3.5-5.1); SODIUM LEVEL 139 MMOL/L (136-145); TOTAL PROTEIN 5.9 G/DL (5.7-8.2)
[2024-09-04 07:57] VITALS: BP 111/65; TEMP 97.1; O2SAT 93
[2024-09-04 12:00] VITALS: BP 119/73; TEMP 97.6; O2SAT 96
[2024-09-04] MEDS: SODIUM CHLORIDE NASAL 0.65% SPRAY BTL (OCEAN) XX PRN (13:35)
[2024-09-04 15:38] VITALS: BP 121/65; TEMP 97.5; O2SAT 96
[2024-09-04 19:21] VITALS: BP 104/63; TEMP 98.1; O2SAT 96
[2024-09-05 04:32] VITALS: BP 121/71; TEMP 98; O2SAT 93
[2024-09-05 07:03] LABS: HEMATOCRIT 35.3 % (42.0-52.0); HEMOGLOBIN 10.9 g/dl (13.5-17.5); MEAN CORPUSCULAR HEMOGLOBIN 32.6 pg (27.0-33.0); MEAN CORPUSCULAR HGB CONC 30.9 g/dl (32.0-36.5); MEAN CORPUSCULAR VOLUME 105.7 fl (80.0-96.0); PLATELET COUNT, AUTOMATED 236 10^3/uL (150-450); RED BLOOD COUNT 3.34 10^6/uL (4.30-6.10); WHITE BLOOD COUNT 8.9 10^3/uL (4.0-10.0)
[2024-09-05 07:25] VITALS: BP 114/68; TEMP 97.6; O2SAT 98
[2024-09-05 07:38] LABS: ALBUMIN 2.6 G/DL (3.2-5.2); ALKALINE PHOSPHATASE 85 U/L (40-129); ALT/SGPT 16 U/L (7.0-40); AST/SGOT 14 U/L (<34); BILIRUBIN,TOTAL 0.3 MG/DL (0.3-1.2); BLOOD UREA NITROGEN 30 MG/DL (9-23); CALCIUM LEVEL 9.5 MG/DL (8.3-10.6); CARBON DIOXIDE LEVEL > 40.0 MMOL/L (20-31); CHLORIDE LEVEL 99 MMOL/L (98-107); CREATININE FOR GFR 0.81 MG/DL (0.70-1.30); GLOMERULAR FILTRATION RATE > 60.0 (>49); GLUCOSE, FASTING 90 MG/DL (74-106); POTASSIUM SERUM 4.1 MMOL/L (3.5-5.1); SODIUM LEVEL 139 MMOL/L (136-145)
[2024-09-05 12:00] VITALS: BP 105/63; TEMP 97.2; O2SAT 96
[2024-09-05] MEDS ORDERED: IPRATROPIUM 0.5MG/ALBUTEROL 2.5MG INH SOL UD 3ML (DUONEB) NEB PRN (13:40)
[2024-09-05 15:43] VITALS: BP 111/64; TEMP 98.8; O2SAT 97
[2024-09-05] MEDS ORDERED: VANI1CRE5 TOP (17:02)
[2024-09-05] MEDS ORDERED: LEVO1TAB40 PO (17:02)
[2024-09-05] MEDS ORDERED: IPRA0.00 NEB (17:02)
[2024-09-05] MEDS ORDERED: SYMB16INH INH (17:02)
[2024-09-05] MEDS ORDERED: IPRA2IN INH (17:03)
[2024-09-05 20:00] VITALS: BP 111/66; TEMP 98.2; O2SAT 94
[2024-09-05] MEDS: traZODone 50 MG TAB PO PRN (20:23)
[2024-09-06] MEDS ORDERED: NYSTATIN 100,000 UNITS/GM TOPICAL PWD 15GM TOP PRN (01:15)
[2024-09-06 04:00] VITALS: BP 112/65; TEMP 98.2; O2SAT 96
[2024-09-06 05:16] LABS: HEMATOCRIT 35.8 % (42.0-52.0); HEMOGLOBIN 10.9 g/dl (13.5-17.5); MEAN CORPUSCULAR HEMOGLOBIN 32.1 pg (27.0-33.0); MEAN CORPUSCULAR HGB CONC 30.4 g/dl (32.0-36.5); MEAN CORPUSCULAR VOLUME 105.3 fl (80.0-96.0); PLATELET COUNT, AUTOMATED 239 10^3/uL (150-450); WHITE BLOOD COUNT 9.8 10^3/uL (4.0-10.0)
[2024-09-06 05:54] LABS: ALBUMIN 2.6 G/DL (3.2-5.2); ALKALINE PHOSPHATASE 83 U/L (40-129); ALT/SGPT 15 U/L (7.0-40); AST/SGOT 11 U/L (<34); BILIRUBIN,TOTAL 0.3 MG/DL (0.3-1.2); BLOOD UREA NITROGEN 25 MG/DL (9-23); CALCIUM LEVEL 9.6 MG/DL (8.3-10.6); CARBON DIOXIDE LEVEL > 40.0 MMOL/L (20-31); CHLORIDE LEVEL 101 MMOL/L (98-107); CREATININE FOR GFR 0.74 MG/DL (0.70-1.30); GLOMERULAR FILTRATION RATE > 60.0 (>49); GLUCOSE, FASTING 88 MG/DL (74-106); POTASSIUM SERUM 4.5 MMOL/L (3.5-5.1); SODIUM LEVEL 140 MMOL/L (136-145); TOTAL PROTEIN 6.1 G/DL (5.7-8.2)
[2024-09-06 08:00] VITALS: BP 111/64; TEMP 98.8; O2SAT 95
[2024-09-06 12:00] VITALS: BP 110/64; TEMP 98.8; O2SAT 96
[2024-09-06 16:32] LABS: URINE STREP PNEUMONIAE ANTIGEN NOT DETECTED (NOT DETECT)
== END 2024-09-06 13:02 | DRG 193 ==
LOC: M ED 08:23 → EDBD 08:23 → M ED INP 11:45 → M PCU 14:41 → M MSPAV 09-05 15:41
PROVIDERS: ADMIT Internal Medicine; ATTEND Internal Medicine
DX: J18.9 Pneumonia, unspecified organism (principal); J96.21 Acute and chronic respiratory failure with hypoxia; J96.22 Acute and chronic respiratory failure with hypercapnia; J44.0 Chronic obstructive pulmonary disease with (acute) lower respiratory infection; I47.19 Other supraventricular tachycardia; R91.8 Other nonspecific abnormal finding of lung field; G89.29 Other chronic pain; E03.9 Hypothyroidism, unspecified; D50.9 Iron deficiency anemia, unspecified; N40.0 Benign prostatic hyperplasia without lower urinary tract symptoms; J30.2 Other seasonal allergic rhinitis; K21.9 Gastro-esophageal reflux disease without esophagitis; Z99.81 Dependence on supplemental oxygen; Z79.52 Long term (current) use of systemic steroids; Z79.890 Hormone replacement therapy; Z79.899 Other long term (current) drug therapy; Z88.0 Allergy status to penicillin; F41.9 Anxiety disorder, unspecified; F32.A Depression, unspecified; G43.909 Migraine, unspecified, not intractable, without status migrainosus; F40.10 Social phobia, unspecified; Z87.891 Personal history of nicotine dependence; Z66 Do not resuscitate; E61.1 Iron deficiency; E53.8 Deficiency of other specified B group vitamins; L30.9 Dermatitis, unspecified; M19.90 Unspecified osteoarthritis, unspecified site; Z86.73 Personal history of transient ischemic attack (TIA), and cerebral infarction without residual deficits; J43.9 Emphysema, unspecified